=== PATIENT | male | born 1935 | race Caucasian/White ===

== ENCOUNTER 2020-09-01 17:59 | Inpatient (IN) | payer MEDICARE, OTHER ==
[2020-09-01] MEDS ORDERED: Sodium Chloride 0.9% 1000 ML 1,000 ML IV STA (18:27)
--- NOTE | 2020-09-01 18:31 | ERPHSYRPT ---
- History of Present Illness Time Seen by Provider: 09/01/20 18:20 Patient Subjective Stated Complaint: weakness, itching extremities and back, fatigue Triage Nursing Assessment: pt to ED c/o weakness onset today after waking up this am, had breakfast, went back to bed and could not get up later d/t weakness. hx parkinsons. pt also reports diarrhea x 4 weeks and "nothing taste right before, its okay now." deies pain currently. denies COVID exposure. A&Ox4. noted bilat lower extremity swelling. Physician History: Patient is an 84-year-old white male who presents with extreme weakness the onset was today after awakening. He managed to get out of bed but returned to bed and could not get out the second time. He has had diarrhea on and off for 4 weeks he reports an abnormal taste he denies any pain whatsoever. Patient has longstanding parkinsonism Timing/Duration: week(s) (4) Severity: moderate Modifying Factors: Improves With: nothing Associated Symptoms: loss of appetite Allergies/Adverse Reactions: No Known Drug Allergies Allergy (Unverified 09/01/20 18:16) Home Medications: Carbidopa/Levodopa [Carbidopa-Levo ER 25-100 Tab] 1 each PO HS 09/01/20 [History] Celecoxib 100 mg [celeBREX 100 MG] 100 mg PO BID 09/01/20 [History] Primidone 50 MG [Mysoline 50Mg] 50 mg PO QAM 09/01/20 [History] Ropinirole HCl 0.25 mg PO BID 09/01/20 [History] Hx Tetanus, Diphtheria Vaccination/Date Given: No Hx Influenza Vaccination/Date Given: Yes Hx Pneumococcal Vaccination/Date Given: No Immunizations Up to Date: No Travel Risk - International Travel Have you traveled outside of the country in past 3 weeks: No - Coronavirus Screening Are you exhibiting any of the following symptoms?: Yes Symptoms: Vomiting/Diarrhea, Headaches/Body Aches/Fatigue Close contact with a COVID-19 positive Pt in past 14-21 Days: No - Review of Systems Constitutional: Weakness, No Fever, No Chills Eyes: No Symptoms Ears, Nose, & Throat: No Symptoms Respiratory: No Cough, No Dyspnea Cardiac: No Chest Pain, No Edema, No Syncope Abdominal/Gastrointestinal: No Abdominal Pain, No Nausea, No Vomiting, No Diarrhea, No Hematochezia, No Melena Genitourinary Symptoms: No Dysuria Musculoskeletal: No Back Pain, No Neck Pain Skin: No Rash Neurological: No Dizziness, No Focal Weakness, No Sensory Changes Psychological: No Symptoms Endocrine: No Symptoms All Other Systems: Reviewed and Negative - Past Medical History Pertinent Past Medical History: Yes Neurological History: Other Other Medical History: parkinsons, enlarged prostate - Past Surgical History Past Surgical History: Yes - Social History Smoking Status: Never smoker Exposure to second hand smoke: No Drug Use: none Patient Lives Alone: No () - Nursing Vital Signs Nursing Vital Signs: Initial Vital Signs Temperature 99 F 09/01/20 18:03 Pulse Rate 70 09/01/20 18:03 Respiratory Rate 16 09/01/20 18:03 Blood Pressure 152/68 09/01/20 18:03 O2 Sat by Pulse Oximetry 100 09/01/20 18:03 Pain Scale Pain Intensity 0 - Physical Exam General Appearance: mild distress, alert Eye Exam: PERRL/EOMI, eyes nml inspection, pale conjunctivae Ears, Nose, Throat Exam: normal ENT inspection, TMs normal, pharynx normal, moist mucous membranes Neck Exam: normal inspection, non-tender, supple, full range of motion Respiratory Exam: normal breath sounds, lungs clear, No respiratory distress Cardiovascular Exam: regular rate/rhythm, normal heart sounds, normal peripheral pulses Gastrointestinal/Abdomen Exam: soft, normal bowel sounds, No tenderness, No mass Rectal Exam: not done Back Exam: normal inspection, normal range of motion, No CVA tenderness, No vertebral tenderness Extremity Exam: normal inspection, normal range of motion, pelvis stable Neurologic Exam: alert, oriented x 3, cooperative, normal mood/affect, nml cerebellar function, nml station & gait, sensation nml, other (Patient has a p ronounced resting tremor in the right upper extremity he has bilateral cogwheel rigidity in the upper extremities but other than that there is no local or lateralizing signs.), No motor deficits Skin Exam: normal color, warm, dry, No rash Lymphatic Exam: No adenopathy SpO2: 100 - Course Nursing assessment & vital signs reviewed: Yes EKG Interpreted by Me: RATE (69), Sinus Rhythm, NORMAL AXIS, NORMAL INTERVALS, NORMAL QRS, Non-specific ST Changes - Radiology Exams Chest X-ray Interpretation: Interpreted by me, Negative (X-ray per the ED physician no acute changes only chronic changes) Ordered Tests: Active Orders 24 hr Category Date Time Status EKG-ER Only STAT Care 09/01/20 18:27 Active CHEST 1 VIEW (PORTABLE) Stat Exams 09/01/20 18:29 Taken AMYLASE Stat Lab 09/01/20 18:34 Completed BLOOD CULTURE Stat Lab 09/01/20 19:11 Received BMP DAILY Lab 09/01/20 22:30 Ordered CBC W DIFF Stat Lab 09/01/20 18:34 Completed CMP Stat Lab 09/01/20 18:34 Completed LIPASE Stat Lab 09/01/20 18:34 Completed Lactic Acid Stat Lab 09/01/20 18:55 Completed Occult Blood Stool [FECAL OCCULT BLOOD - SCREENING] Lab 09/01/20 18:57 Ordered Stat POCT GLUCOSE Stat Lab 09/01/20 19:31 Completed PROTIME WITH INR Stat Lab 09/01/20 18:34 Completed TROPONIN Q3H Lab 09/01/20 18:34 Completed TROPONIN Q3H Lab 09/01/20 21:30 Ordered TROPONIN Q3H Lab 09/02/20 00:30 Ordered TROPONIN Q3H Lab 09/02/20 03:30 Ordered TROPONIN Q3H Lab 09/02/20 06:30 Ordered UA W/RFX UR CULTURE Stat Lab 09/01/20 18:28 Ordered Medication Summary Discontinued Medications Generic Name Dose Route Start Last Admin Trade Name Freq PRN Reason Stop Dose Admin Calcium Gluconate 1,000 mg 09/01/20 18:48 09/01/20 19:34 Calcium Gluconate 10% 1000 Mg IV 09/01/20 18:49 1,000 mg STAT ONE Administration Calcium Gluconate Confirm 09/01/20 19:26 Calcium Gluconate 10% 1000 Mg Administered 09/01/20 19:27 Dose 1,000 mg IV .STK-MED ONE Dextrose 50 ml 09/01/20 18:48 09/01/20 19:35 D50w 50 Ml Abboject IV 09/01/20 18:49 50 ml STAT ONE Administration Dextrose Confirm 09/01/20 19:29 D50w 50 Ml Abboject Administered 09/01/20 19:30 Dose 50 ml IV .STK-MED ONE Sodium Chloride 1,000 mls @ 999 mls/hr 09/01/20 18:27 09/01/20 18:35 Sodium Chloride 0.9% 1000 Ml IV 09/01/20 19:27 999 mls/hr .Q1H1M STA Administration Sodium Chloride Confirm 09/01/20 18:34 Sodium Chloride 0.9% 1000 Ml Administered 09/01/20 18:35 Dose 1,000 mls @ ud .ROUTE .STK-MED ONE Insulin Human Regular 5 unit 09/01/20 18:48 09/01/20 19:27 Humulin R IV 09/01/20 18:49 5 unit STAT ONE Administration Insulin Human Regular Confirm 09/01/20 19:28 Humulin R Administered 09/01/20 19:29 Dose 5 unit .ROUTE .STK-MED ONE Sodium Bicarbonate 50 meq 09/01/20 18:48 09/01/20 19:37 Sodium Bicarbonate 50 Meq/50 Ml Abboject IV 09/01/20 18:49 50 meq STAT ONE Administration Sodium Bicarbonate Confirm 09/01/20 19:29 Sodium Bicarbonate 50 Meq/50 Ml Abboject Administered 09/01/20 19:30 Dose 50 meq IV .STK-MED ONE Sodium Polystyrene Sulfonate 30 g 09/01/20 18:51 09/01/20 19:34 Kayexylate 15 Gm/60 Ml PO 09/01/20 18:52 30 g STAT ONE Administration Sodium Polystyrene Sulfonate Confirm 09/01/20 19:28 Kayexylate 15 Gm/60 Ml Administered 09/01/20 19:29 Dose 30 g .ROUTE .STK-MED ONE Lab/Rad Data: Laboratory Result Diagrams 09/01/20 18:34 09/01/20 18:34 Laboratory Results 09/01/20 09/01/20 09/01/20 Range/Units 19:31 19:00 18:55 WBC (4.0-10.5) K/mm3 RBC (4.1-5.6) M/mm3 Hgb (12.5-18.0) gm/dl Hct (42-50) % MCV (78-100) fl MCH (26-32) pg MCHC (32-36) g/dl RDW (11.5-14.0) % Plt Count (150-450) K/mm3 MPV (7.5-11.0) fl Gran % (36.0-66.0) % Eos # (Auto) (0-0.5) Absolute Lymphs (auto) (1.0-4.6) Absolute Monos (auto) (0.0-1.3) Lymphocytes % (24.0-44.0) % Monocytes % (0.0-12.0) % Eosinophils % (0.00-5.0) % Basophils % (0.0-0.4) % Absolute Granulocytes (1.4-6.9) Basophils # (0-0.4) PT (8.83-12.87) SECONDS INR (0.8-3.0) Sodium (137-145) mmol/L Potassium (3.5-5.1) mmol/L Chloride (98-107) mmol/L Carbon Dioxide (22-30) mmol/L Anion Gap (5-15) MEQ/L BUN (9-20) mg/dL Creatinine (0.66-1.25) mg/dL Estimated GFR ML/MIN Glucose (74-106) mg/dL POC Glucometer 93 (74 to 106) mg/dL Lactic Acid 1.0 (0.4-2.0) Calcium (8.4-10.2) mg/dL Total Bilirubin (0.2-1.3) mg/dL AST (17-59) U/L ALT (0-50) U/L Alkaline Phosphatase (38-126) U/L Troponin I (0.000-0.034) ng/mL Serum Total Protein (6.3-8.2) g/dL Albumin (3.5-5.0) g/dL Amylase (30-110) U/L Lipase (23-300) U/L SARS-CoV-2 (PCR) NEGATIVE (NEGATIVE) Slides for Path Review 09/01/20 09/01/20 09/01/20 Range/Units 18:34 18:34 18:34 WBC (4.0-10.5) K/mm3 RBC (4.1-5.6) M/mm3 Hgb (12.5-18.0) gm/dl Hct (42-50) % MCV (78-100) fl MCH (26-32) pg MCHC (32-36) g/dl RDW (11.5-14.0) % Plt Count (150-450) K/mm3 MPV (7.5-11.0) fl Gran % (36.0-66.0) % Eos # (Auto) (0-0.5) Absolute Lymphs (auto) (1.0-4.6) Absolute Monos (auto) (0.0-1.3) Lymphocytes % (24.0-44.0) % Monocytes % (0.0-12.0) % Eosinophils % (0.00-5.0) % Basophils % (0.0-0.4) % Absolute Granulocytes (1.4-6.9) Basophils # (0-0.4) PT 12.0 (8.83-12.87) SECONDS INR 1.06 (0.8-3.0) Sodium 132 L (137-145) mmol/L Potassium 6.4 H* (3.5-5.1) mmol/L Chloride 110 H (98-107) mmol/L Carbon Dioxide 13 L* (22-30) mmol/L Anion Gap 16.2 H (5-15) MEQ/L BUN 81 H (9-20) mg/dL Creatinine 8.64 H (0.66-1.25) mg/dL Estimated GFR 6.3 ML/MIN Glucose 102 (74-106) mg/dL POC Glucometer (74 to 106) mg/dL Lactic Acid (0.4-2.0) Calcium 8.0 L (8.4-10.2) mg/dL Total Bilirubin 0.30 (0.2-1.3) mg/dL AST 15 L (17-59) U/L ALT 5 (0-50) U/L Alkaline Phosphatase 62 (38-126) U/L Troponin I 0.044 H* (0.000-0.034) ng/mL Serum Total Protein 6.3 (6.3-8.2) g/dL Albumin 3.6 (3.5-5.0) g/dL Amylase 98 (30-110) U/L Lipase 174 (23-300) U/L SARS-CoV-2 (PCR) (NEGATIVE) Slides for Path Review 09/01/20 Range/Units 18:34 WBC 11.8 H (4.0-10.5) K/mm3 RBC 2.08 L (4.1-5.6) M/mm3 Hgb 6.3 L* (12.5-18.0) gm/dl Hct 20.6 L (42-50) % MCV 99.0 (78-100) fl MCH 30.3 (26-32) pg MCHC 30.6 L (32-36) g/dl RDW 13.4 (11.5-14.0) % Plt Count 207 (150-450) K/mm3 MPV 10.2 (7.5-11.0) fl Gran % 88.4 H (36.0-66.0) % Eos # (Auto) 0.20 (0-0.5) Absolute Lymphs (auto) 0.46 L (1.0-4.6) Absolute Monos (auto) 0.70 (0.0-1.3) Lymphocytes % 3.9 L (24.0-44.0) % Monocytes % 5.9 (0.0-12.0) % Eosinophils % 1.7 (0.00-5.0) % Basophils % 0.1 (0.0-0.4) % Absolute Granulocytes 10.43 H (1.4-6.9) Basophils # 0.01 (0-0.4) PT (8.83-12.87) SECONDS INR (0.8-3.0) Sodium (137-145) mmol/L Potassium (3.5-5.1) mmol/L Chloride (98-107) mmol/L Carbon Dioxide (22-30) mmol/L Anion Gap (5-15) MEQ/L BUN (9-20) mg/dL Creatinine (0.66-1.25) mg/dL Estimated GFR ML/MIN Glucose (74-106) mg/dL POC Glucometer (74 to 106) mg/dL Lactic Acid (0.4-2.0) Calcium (8.4-10.2) mg/dL Total Bilirubin (0.2-1.3) mg/dL AST (17-59) U/L ALT (0-50) U/L Alkaline Phosphatase (38-126) U/L Troponin I (0.000-0.034) ng/mL Serum Total Protein (6.3-8.2) g/dL Albumin (3.5-5.0) g/dL Amylase (30-110) U/L Lipase (23-300) U/L SARS-CoV-2 (PCR) (NEGATIVE) Slides for Path Review YES - Progress Progress: unchanged Discussed with : Karin - Departure Departure Disposition: In-patient Admission Clinical Impression: Anemia, Hyperkalemia, Dehydration Condition: Stable Critical Care Time: Yes Critical Care Time(excluding separately billable procedures): Critical 30-74 mins Referrals: ABRAHAN DIXON MD [Primary Care Provider] -
[2020-09-01] MEDS ORDERED: Sodium Chloride 0.9% 1000 ML 1,000 ML ONE ×3 (18:34→21:03)
[2020-09-01 18:38] LABS: Absolute Neutrophil Ct (ANC) 10.43 (1.4-6.9); BASOPHIL % 0.1 % (0.0-0.4); Basophil (Absolute #) 0.01 (0-0.4); Eosinophil % 1.7 % (0.00-5.0); Hematocrit 20.6 % (42-50); Lymphocyte (Absolute #) 0.46 (1.0-4.6); Lymphocytes % 3.9 % (24.0-44.0); Mean Corpuscular Hemoglobin 30.3 pg (26-32); Mean Corpuscular Hgb Concent. 30.6 g/dl (32-36); Mean Platelet Volume 10.2 fl (7.5-11.0); Monocytes % 5.9 % (0.0-12.0); Neutrophil % 88.4 % (36.0-66.0); Platelet Count 207 K/mm3 (150-450); Red Blood Count 2.08 M/mm3 (4.1-5.6); Red Cell Distribution Width 13.4 % (11.5-14.0); White Blood Count 11.8 K/mm3 (4.0-10.5)
[2020-09-01 18:39] LABS: INR 1.06 (0.8-3.0)
[2020-09-01 18:43] LABS: ALBUMIN 3.6 g/dL (3.5-5.0); ANION GAP 16.2 MEQ/L (5-15); BILIRUBIN,TOTAL 0.3 mg/dL (0.2-1.3); Creatinine 1 8.64 mg/dL (0.66-1.25); EST GLOMERULAR FILTRATION RATE 6.3 ML/MIN; Hemoglobin 6.3 gm/dl (12.5-18.0); Total Protein 6.3 g/dL (6.3-8.2)
[2020-09-01 18:45] LABS: Potassium 6.4 mmol/L (3.5-5.1)
[2020-09-01] MEDS ORDERED: SODIUM BICARBONATE 50 MEQ/50 ML ABBOJECT IV ONE ×2 (18:48→19:29)
[2020-09-01] MEDS ORDERED: Calcium Gluconate 10% 1000 MG IV ONE ×2 (18:48→19:26)
[2020-09-01] MEDS ORDERED: HUMULIN R IV ONE (18:48)
[2020-09-01] MEDS ORDERED: D50W 50 ml Abboject IV ONE ×2 (18:48→19:29)
[2020-09-01] MEDS ORDERED: Kayexylate 15 GM/60 ML PO ONE (18:51)
[2020-09-01] MEDS ORDERED: Kayexylate 15 GM/60 ML ONE (19:28)
[2020-09-01] MEDS ORDERED: HUMULIN R ONE (19:28)
[2020-09-01 19:47] LABS: Slide Review 1 YES
[2020-09-01 20:30] LABS: ABO TYPING O; Antibody Screen NEGATIVE (NEGATIVE); RH TYPING POSITIVE
[2020-09-01] MEDS ORDERED: Sodium Chloride 0.9% 1000 ML 1,000 ML IV SCH (20:30)
[2020-09-01 20:34] LABS: CROSS MATCH (PRBC) COMPATIBLE (COMPATIBLE)
[2020-09-01] MEDS ORDERED: Sodium Chloride 0.9% W/ 20 mEq KCl/LITER 1,000 ML IV SCH (22:31)
[2020-09-01 22:44] LABS: ANION GAP 16.4 MEQ/L (5-15); Calcium 8.1 mg/dL (8.4-10.2); Creatinine 1 8.51 mg/dL (0.66-1.25); EST GLOMERULAR FILTRATION RATE 6.4 ML/MIN; Potassium 5.6 mmol/L (3.5-5.1)
[2020-09-01] MEDS: Sodium Chloride 0.9% 1000 ML 1,000 ML IV SCH (23:18)
[2020-09-02 04:40] LABS: Absolute Neutrophil Ct (ANC) 8.91 (1.4-6.9); BASOPHIL % 0.2 % (0.0-0.4); Basophil (Absolute #) 0.02 (0-0.4); Eosinophil % 3.6 % (0.00-5.0); Eosinophil (Absolute #) 0.37 (0-0.5); Hematocrit 24.7 % (42-50); Lymphocyte (Absolute #) 0.42 (1.0-4.6); Lymphocytes % 4.1 % (24.0-44.0); Mean Cell Volume 96.5 fl (78-100); Mean Corpuscular Hemoglobin 30.1 pg (26-32); Mean Corpuscular Hgb Concent. 31.2 g/dl (32-36); Mean Platelet Volume 10.2 fl (7.5-11.0); Monocyte (Absolute #) 0.44 (0.0-1.3); Monocytes % 4.3 % (0.0-12.0); Neutrophil % 87.8 % (36.0-66.0); Platelet Count 180 K/mm3 (150-450); Red Blood Count 2.56 M/mm3 (4.1-5.6); Red Cell Distribution Width 14.4 % (11.5-14.0); White Blood Count 10.2 K/mm3 (4.0-10.5)
[2020-09-02 04:50] LABS: Hemoglobin 7.7 gm/dl (12.5-18.0)
[2020-09-02 04:52] LABS: ALBUMIN 3.1 g/dL (3.5-5.0); ALKALINE PHOSPHATASE 45 U/L (38-126); ANION GAP 14.5 MEQ/L (5-15); BLOOD UREA NITROGEN 80 mg/dL (9-20); CHLORIDE 113 mmol/L (98-107); Creatinine 1 7.88 mg/dL (0.66-1.25); Glucose 83 mg/dL (74-106); Potassium 5.5 mmol/L (3.5-5.1); SGOT/AST 18 U/L (17-59); SODIUM 135 mmol/L (137-145); Total Protein 5.5 g/dL (6.3-8.2)
[2020-09-02 05:08] LABS: Carbon Dioxide 13 mmol/L (22-30); SGPT/ALT < 4 U/L (0-50)
[2020-09-02 06:21] LABS: Slide Review 1 YES
[2020-09-02] MEDS: Sodium Chloride 0.9% 1000 ML 1,000 ML IV SCH ×3 (06:35→20:37)
--- NOTE | 2020-09-02 08:45 | XRAY ---
Indication: Weakness. Comparison: None Portable chest demonstrates subtle inferior right upper and right infrahilar infiltrate versus atelectasis. Remaining heart and lungs unremarkable. Bony thorax intact with osteopenia and mild degenerative changes.
--- NOTE | 2020-09-02 12:02 | PCM.HP ---
History of Present Illness - Chief Complaint Chief Complaint: c/o diarrhea, low hemoglobin History of Present Illness: is a 84 year old male. presents with extreme weakness the onset was today after awakening. He managed to get out of bed but returned to bed and could not get out the second time. He has had diarrhea on and off for 4 weeks he reports an abnormal taste he denies any pain whatsoever. Patient has longstanding parkinsonism Timing/Duration: week(s) (4) Severity: moderate Modifying Factors: Improves With: nothing Associated Symptoms: loss of appetite - Review of Systems Constitutional: Lethargy, Weakness, No Fever, No Chills Eyes: No Symptoms Ears, Nose, & Throat: No Symptoms Respiratory: No Cough, No Short Of Breath Cardiac: No Chest Pain, No Edema, No Syncope Abdominal/Gastrointestinal: No Abdominal Pain, No Nausea, No Vomiting, No Diarrhea Genitourinary Symptoms: No Dysuria Musculoskeletal: No Back Pain, No Neck Pain Skin: No Rash Neurological: No Dizziness, No Focal Weakness, No Sensory Changes Psychological: No Symptoms Endocrine: No Symptoms Hematologic/Lymphatic: No Symptoms Immunological/Allergic: No Symptoms Medications & Allergies Home Medications: Home Medication List Carbidopa/Levodopa [Carbidopa-Levo ER 25-100 Tab] 1 each PO BID 09/01/20 [History Confirmed 09/01/20] Celecoxib 100 mg [celeBREX 100 MG] 100 mg PO DAILY 09/01/20 [History Confirmed 09/01/20] Primidone 50 MG [Mysoline 50Mg] 50 mg PO BID 09/01/20 [History Confirmed 09/01/20] Ropinirole HCl 0.25 mg PO BID 09/01/20 [History Confirmed 09/01/20] Allergies/Adverse Reactions: Allergies Allergy/AdvReac Type Severity Reaction Status Date / Time No Known Drug Allergies Allergy Unverified 09/01/20 18:16 - Past Medical History Past Medical History: Yes Neurological History: Other ENT History: No Pertinent History Cardiac History: No Pertinent History Respiratory History: No Pertinent History Endocrine Medical History: No Pertinent History Musculoskelatal History: No Pertinent History GI Medical History: No Pertinent History History: No Pertinent History Pyscho-Social History: No Pertinent History Male Reproductive Disorders: Prostate Problems Comment: parkinsons, enlarged prostate - Past Surgical History Past Surgical History: Yes Neuro Surgical History: No Pertinent History Cardiac History: No Pertinent History Respiratory Surgery: No Pertinent History GI Surgical History: No Pertinent History Genitourinary Surgical Hx: No Pertinent History Musculskeletal Surgical Hx: No Pertinent History Male Surgical History: No Pertinent History - Social History Smoking Status: Never smoker Exposure to second hand smoke: No Alcohol: None Drug Use: none - Physical Exam Vital Signs: Vital Signs - 24 hr Temp Pulse Resp BP Pulse Ox 09/02/20 11:31 97.7 F 67 14 166/76 99 09/02/20 11:24 97.7 F 67 14 166/76 99 09/02/20 08:00 68 18 09/02/20 07:12 97.8 F 68 14 172/75 99 09/02/20 04:00 71 09/02/20 02:58 98.7 F 70 14 170/71 99 09/02/20 00:01 71 09/02/20 00:00 98.4 F 71 15 160/79 100 09/01/20 22:32 98.9 F 71 14 161/64 100 09/01/20 21:31 98.5 F 79 18 131/67 100 09/01/20 20:16 79 16 136/62 99 09/01/20 20:13 100 09/01/20 19:00 70 18 136/77 100 09/01/20 18:03 99 F 70 16 152/68 100 General Appearance: no apparent distress, alert Neurologic Exam: alert, oriented x 3, cooperative, normal mood/affect, nml cerebellar function, nml station & gait, sensation nml, No motor deficits Eye Exam: PERRL/EOMI, eyes nml inspection Ears, Nose, Throat Exam: normal ENT inspection, TMs normal, pharynx normal, moist mucous membranes Neck Exam: normal inspection, non-tender, supple, full range of motion Respiratory Exam: normal breath sounds, lungs clear, No respiratory distress Cardiovascular Exam: regular rate/rhythm, normal heart sounds, normal peripheral pulses Gastrointestinal/Abdomen Exam: soft, normal bowel sounds, No tenderness, No mass Back Exam: normal inspection, normal range of motion, No CVA tenderness, No vertebral tenderness Extremity Exam: normal inspection, normal range of motion, pelvis stable Skin Exam: normal color, warm, dry, No rash Lymphatic Exam: No adenopathy Results - Labs Lab/Micro Results: Lab Results-Last 24 Hours 09/01/20 09/01/20 09/01/20 Range/Units 18:34 18:34 18:34 WBC 11.8 H (4.0-10.5) K/mm3 RBC 2.08 L (4.1-5.6) M/mm3 Hgb 6.3 L* (12.5-18.0) gm/dl Hct 20.6 L (42-50) % MCV 99.0 (78-100) fl MCH 30.3 (26-32) pg MCHC 30.6 L (32-36) g/dl RDW 13.4 (11.5-14.0) % Plt Count 207 (150-450) K/mm3 MPV 10.2 (7.5-11.0) fl Gran % 88.4 H (36.0-66.0) % Eos # (Auto) 0.20 (0-0.5) Absolute Lymphs (auto) 0.46 L (1.0-4.6) Absolute Monos (auto) 0.70 (0.0-1.3) Lymphocytes % 3.9 L (24.0-44.0) % Monocytes % 5.9 (0.0-12.0) % Eosinophils % 1.7 (0.00-5.0) % Basophils % 0.1 (0.0-0.4) % Absolute Granulocytes 10.43 H (1.4-6.9) Basophils # 0.01 (0-0.4) PT 12.0 (8.83-12.87) SECONDS INR 1.06 (0.8-3.0) Sodium 132 L (137-145) mmol/L Potassium 6.4 H* (3.5-5.1) mmol/L Chloride 110 H (98-107) mmol/L Carbon Dioxide 13 L* (22-30) mmol/L Anion Gap 16.2 H (5-15) MEQ/L BUN 81 H (9-20) mg/dL Creatinine 8.64 H (0.66-1.25) mg/dL Estimated GFR 6.3 ML/MIN Glucose 102 (74-106) mg/dL POC Glucometer (74 to 106) mg/dL Lactic Acid (0.4-2.0) Calcium 8.0 L (8.4-10.2) mg/dL Total Bilirubin 0.30 (0.2-1.3) mg/dL AST 15 L (17-59) U/L ALT 5 (0-50) U/L Alkaline Phosphatase 62 (38-126) U/L Troponin I (0.000-0.034) ng/mL Serum Total Protein 6.3 (6.3-8.2) g/dL Albumin 3.6 (3.5-5.0) g/dL Amylase 98 (30-110) U/L Lipase 174 (23-300) U/L SARS-CoV-2 (PCR) (NEGATIVE) Slides for Path Review YES ABO Group Rh Factor Antibody Screen (NEGATIVE) Crossmatch (COMPATIBLE) 09/01/20 09/01/20 09/01/20 Range/Units 18:34 18:55 19:00 WBC (4.0-10.5) K/mm3 RBC (4.1-5.6) M/mm3 Hgb (12.5-18.0) gm/dl Hct (42-50) % MCV (78-100) fl MCH (26-32) pg MCHC (32-36) g/dl RDW (11.5-14.0) % Plt Count (150-450) K/mm3 MPV (7.5-11.0) fl Gran % (36.0-66.0) % Eos # (Auto) (0-0.5) Absolute Lymphs (auto) (1.0-4.6) Absolute Monos (auto) (0.0-1.3) Lymphocytes % (24.0-44.0) % Monocytes % (0.0-12.0) % Eosinophils % (0.00-5.0) % Basophils % (0.0-0.4) % Absolute Granulocytes (1.4-6.9) Basophils # (0-0.4) PT (8.83-12.87) SECONDS INR (0.8-3.0) Sodium (137-145) mmol/L Potassium (3.5-5.1) mmol/L Chloride (98-107) mmol/L Carbon Dioxide (22-30) mmol/L Anion Gap (5-15) MEQ/L BUN (9-20) mg/dL Creatinine (0.66-1.25) mg/dL Estimated GFR ML/MIN Glucose (74-106) mg/dL POC Glucometer (74 to 106) mg/dL Lactic Acid 1.0 (0.4-2.0) Calcium (8.4-10.2) mg/dL Total Bilirubin (0.2-1.3) mg/dL AST (17-59) U/L ALT (0-50) U/L Alkaline Phosphatase (38-126) U/L Troponin I 0.044 H* (0.000-0.034) ng/mL Serum Total Protein (6.3-8.2) g/dL Albumin (3.5-5.0) g/dL Amylase (30-110) U/L Lipase (23-300) U/L SARS-CoV-2 (PCR) NEGATIVE (NEGATIVE) Slides for Path Review ABO Group Rh Factor Antibody Screen (NEGATIVE) Crossmatch (COMPATIBLE) 09/01/20 09/01/20 09/01/20 Range/Units 19:00 19:11 19:31 WBC (4.0-10.5) K/mm3 RBC (4.1-5.6) M/mm3 Hgb (12.5-18.0) gm/dl Hct (42-50) % MCV (78-100) fl MCH (26-32) pg MCHC (32-36) g/dl RDW (11.5-14.0) % Plt Count (150-450) K/mm3 MPV (7.5-11.0) fl Gran % (36.0-66.0) % Eos # (Auto) (0-0.5) Absolute Lymphs (auto) (1.0-4.6) Absolute Monos (auto) (0.0-1.3) Lymphocytes % (24.0-44.0) % Monocytes % (0.0-12.0) % Eosinophils % (0.00-5.0) % Basophils % (0.0-0.4) % Absolute Granulocytes (1.4-6.9) Basophils # (0-0.4) PT (8.83-12.87) SECONDS INR (0.8-3.0) Sodium (137-145) mmol/L Potassium (3.5-5.1) mmol/L Chloride (98-107) mmol/L Carbon Dioxide (22-30) mmol/L Anion Gap (5-15) MEQ/L BUN (9-20) mg/dL Creatinine (0.66-1.25) mg/dL Estimated GFR ML/MIN Glucose (74-106) mg/dL POC Glucometer 93 (74 to 106) mg/dL Lactic Acid (0.4-2.0) Calcium (8.4-10.2) mg/dL Total Bilirubin (0.2-1.3) mg/dL AST (17-59) U/L ALT (0-50) U/L Alkaline Phosphatase (38-126) U/L Troponin I (0.000-0.034) ng/mL Serum Total Protein (6.3-8.2) g/dL Albumin (3.5-5.0) g/dL Amylase (30-110) U/L Lipase (23-300) U/L SARS-CoV-2 (PCR) (NEGATIVE) Slides for Path Review ABO Group O Rh Factor POSITIVE Antibody Screen NEGATIVE (NEGATIVE) Crossmatch COMPATIBLE COMPATIBLE (COMPATIBLE) 09/01/20 09/01/20 09/02/20 Range/Units 22:30 22:30 01:47 WBC (4.0-10.5) K/mm3 RBC (4.1-5.6) M/mm3 Hgb (12.5-18.0) gm/dl Hct (42-50) % MCV (78-100) fl MCH (26-32) pg MCHC (32-36) g/dl RDW (11.5-14.0) % Plt Count (150-450) K/mm3 MPV (7.5-11.0) fl Gran % (36.0-66.0) % Eos # (Auto) (0-0.5) Absolute Lymphs (auto) (1.0-4.6) Absolute Monos (auto) (0.0-1.3) Lymphocytes % (24.0-44.0) % Monocytes % (0.0-12.0) % Eosinophils % (0.00-5.0) % Basophils % (0.0-0.4) % Absolute Granulocytes (1.4-6.9) Basophils # (0-0.4) PT (8.83-12.87) SECONDS INR (0.8-3.0) Sodium 136 L (137-145) mmol/L Potassium 5.6 H (3.5-5.1) mmol/L Chloride 111 H (98-107) mmol/L Carbon Dioxide 14 L* (22-30) mmol/L Anion Gap 16.4 H (5-15) MEQ/L BUN 79 H (9-20) mg/dL Creatinine 8.51 H (0.66-1.25) mg/dL Estimated GFR 6.4 ML/MIN Glucose 77 (74-106) mg/dL POC Glucometer (74 to 106) mg/dL Lactic Acid (0.4-2.0) Calcium 8.1 L (8.4-10.2) mg/dL Total Bilirubin (0.2-1.3) mg/dL AST (17-59) U/L ALT (0-50) U/L Alkaline Phosphatase (38-126) U/L Troponin I 0.046 H* 0.046 H* (0.000-0.034) ng/mL Serum Total Protein (6.3-8.2) g/dL Albumin (3.5-5.0) g/dL Amylase (30-110) U/L Lipase (23-300) U/L SARS-CoV-2 (PCR) (NEGATIVE) Slides for Path Review ABO Group Rh Factor Antibody Screen (NEGATIVE) Crossmatch (COMPATIBLE) 09/02/20 09/02/20 09/02/20 Range/Units 04:30 04:37 04:37 WBC 10.2 (4.0-10.5) K/mm3 RBC 2.56 L (4.1-5.6) M/mm3 Hgb 7.7 L D (12.5-18.0) gm/dl Hct 24.7 L (42-50) % MCV 96.5 (78-100) fl MCH 30.1 (26-32) pg MCHC 31.2 L (32-36) g/dl RDW 14.4 H (11.5-14.0) % Plt Count 180 (150-450) K/mm3 MPV 10.2 (7.5-11.0) fl Gran % 87.8 H (36.0-66.0) % Eos # (Auto) 0.37 (0-0.5) Absolute Lymphs (auto) 0.42 L (1.0-4.6) Absolute Monos (auto) 0.44 (0.0-1.3) Lymphocytes % 4.1 L (24.0-44.0) % Monocytes % 4.3 (0.0-12.0) % Eosinophils % 3.6 (0.00-5.0) % Basophils % 0.2 (0.0-0.4) % Absolute Granulocytes 8.91 H (1.4-6.9) Basophils # 0.02 (0-0.4) PT (8.83-12.87) SECONDS INR (0.8-3.0) Sodium (137-145) mmol/L Potassium (3.5-5.1) mmol/L Chloride (98-107) mmol/L Carbon Dioxide (22-30) mmol/L Anion Gap (5-15) MEQ/L BUN (9-20) mg/dL Creatinine (0.66-1.25) mg/dL Estimated GFR ML/MIN Glucose (74-106) mg/dL POC Glucometer (74 to 106) mg/dL Lactic Acid 0.8 (0.4-2.0) Calcium (8.4-10.2) mg/dL Total Bilirubin (0.2-1.3) mg/dL AST (17-59) U/L ALT (0-50) U/L Alkaline Phosphatase (38-126) U/L Troponin I 0.045 H* (0.000-0.034) ng/mL Serum Total Protein (6.3-8.2) g/dL Albumin (3.5-5.0) g/dL Amylase (30-110) U/L Lipase (23-300) U/L SARS-CoV-2 (PCR) (NEGATIVE) Slides for Path Review YES ABO Group Rh Factor Antibody Screen (NEGATIVE) Crossmatch (COMPATIBLE) 09/02/20 09/02/20 Range/Units 04:37 07:15 WBC (4.0-10.5) K/mm3 RBC (4.1-5.6) M/mm3 Hgb (12.5-18.0) gm/dl Hct (42-50) % MCV (78-100) fl MCH (26-32) pg MCHC (32-36) g/dl RDW (11.5-14.0) % Plt Count (150-450) K/mm3 MPV (7.5-11.0) fl Gran % (36.0-66.0) % Eos # (Auto) (0-0.5) Absolute Lymphs (auto) (1.0-4.6) Absolute Monos (auto) (0.0-1.3) Lymphocytes % (24.0-44.0) % Monocytes % (0.0-12.0) % Eosinophils % (0.00-5.0) % Basophils % (0.0-0.4) % Absolute Granulocytes (1.4-6.9) Basophils # (0-0.4) PT (8.83-12.87) SECONDS INR (0.8-3.0) Sodium 135 L (137-145) mmol/L Potassium 5.5 H (3.5-5.1) mmol/L Chloride 113 H (98-107) mmol/L Carbon Dioxide 13 L* (22-30) mmol/L Anion Gap 14.5 (5-15) MEQ/L BUN 80 H (9-20) mg/dL Creatinine 7.88 H (0.66-1.25) mg/dL Estimated GFR 7.0 ML/MIN Glucose 83 (74-106) mg/dL POC Glucometer (74 to 106) mg/dL Lactic Acid (0.4-2.0) Calcium 8.0 L (8.4-10.2) mg/dL Total Bilirubin 0.80 (0.2-1.3) mg/dL AST 18 (17-59) U/L ALT < 4 (0-50) U/L Alkaline Phosphatase 45 (38-126) U/L Troponin I 0.045 H* (0.000-0.034) ng/mL Serum Total Protein 5.5 L (6.3-8.2) g/dL Albumin 3.1 L (3.5-5.0) g/dL Amylase (30-110) U/L Lipase (23-300) U/L SARS-CoV-2 (PCR) (NEGATIVE) Slides for Path Review ABO Group Rh Factor Antibody Screen (NEGATIVE) Crossmatch (COMPATIBLE) - Radiology Impressions Radiology Exams & Impressions: Radiology Procedures Category Date Time Status ABDOMEN AND PELVIS W/0 CONTRAS [CT] Routine Exams 09/02/20 09:15 Ordered CHEST 1 VIEW (PORTABLE) Stat Exams 09/01/20 18:29 Completed CHEST WITHOUT CONTRAST [CT] Routine Exams 09/02/20 09:15 Ordered Assessment/Plan (1) Iron deficiency anemia due to chronic blood loss Current Visit: Yes Status: Acute Assessment & Plan: Chief Complaint Diagnosis ANEMIA, HYPERKALEMIA, DEHYDRATION Allergies Allergy/AdvReac Type Severity Reaction Status Date / Time No Known Drug Allergies Allergy Unverified 09/01/20 18:16 Vital Signs (Last 24 hours) Temp Pulse Resp BP Pulse Ox 09/02/20 11:31 97.7 F 67 14 166/76 99 09/02/20 11:24 97.7 F 67 14 166/76 99 09/02/20 08:00 68 18 09/02/20 07:12 97.8 F 68 14 172/75 99 09/02/20 04:00 71 09/02/20 02:58 98.7 F 70 14 170/71 99 09/02/20 00:01 71 09/02/20 00:00 98.4 F 71 15 160/79 100 09/01/20 22:32 98.9 F 71 14 161/64 100 09/01/20 21:31 98.5 F 79 18 131/67 100 09/01/20 20:16 79 16 136/62 99 09/01/20 20:13 100 09/01/20 19:00 70 18 136/77 100 09/01/20 18:03 99 F 70 16 152/68 100 Home Medications Medication Instructions Recorded Confirmed Last Taken Type Carbidopa/Levodopa [Carbidopa-Levo 1 each PO BID 09/01/20 09/01/20 09/01/20 History ER 25-100 Tab] Celecoxib 100 mg [celeBREX 100 100 mg PO DAILY 09/01/20 09/01/20 09/01/20 History MG] Primidone 50 MG [Mysoline 50Mg] 50 mg PO BID 09/01/20 09/01/20 09/01/20 History Ropinirole HCl 0.25 mg PO BID 09/01/20 09/01/20 09/01/20 History Current Medications Generic Name Dose Route Start Last Admin Trade Name Freq PRN Reason Stop Dose Admin Sodium Chloride 1,000 mls @ 150 mls/hr 09/01/20 23:30 09/02/20 06:35 Sodium Chloride 0.9% 1000 Ml IV 10/01/20 23:29 150 mls/hr .Q6H40M HSALINI Administration Discontinued Medications Generic Name Dose Route Start Last Admin Trade Name Dane PRN Reason Stop Dose Admin Calcium Gluconate 1,000 mg 09/01/20 18:48 09/01/20 19:34 Calcium Gluconate 10% 1000 Mg IV 09/01/20 18:49 1,000 mg STAT ONE Administration Calcium Gluconate Confirm 09/01/20 19:26 Calcium Gluconate 10% 1000 Mg Administered 09/01/20 19:27 Dose 1,000 mg IV .STK-MED ONE Dextrose 50 ml 09/01/20 18:48 09/01/20 19:35 D50w 50 Ml Abboject IV 09/01/20 18:49 50 ml STAT ONE Administration Dextrose Confirm 09/01/20 19:29 D50w 50 Ml Abboject Administered 09/01/20 19:30 Dose 50 ml IV .STK-MED ONE Sodium Chloride 1,000 mls @ 999 mls/hr 09/01/20 18:27 09/01/20 18:35 Sodium Chloride 0.9% 1000 Ml IV 09/01/20 19:27 999 mls/hr .Q1H1M STA Administration Sodium Chloride Confirm 09/01/20 18:34 Sodium Chloride 0.9% 1000 Ml Administered 09/01/20 18:35 Dose 1,000 mls @ ud .ROUTE .STK-MED ONE Sodium Chloride Confirm 09/01/20 20:20 Sodium Chloride 0.9% 1000 Ml Administered 09/01/20 20:21 Dose 1,000 mls @ ud .ROUTE .STK-MED ONE Sodium Chloride 1,000 mls @ 150 mls/hr 09/01/20 20:30 09/01/20 20:28 Sodium Chloride 0.9% 1000 Ml IV 10/01/20 20:29 150 mls/hr .Q6H40M SHALINI Administration Sodium Chloride Confirm 09/01/20 21:03 Sodium Chloride 0.9% 1000 Ml Administered 09/01/20 21:04 Dose 1,000 mls @ ud .ROUTE .STK-MED ONE Potassium Chloride/Sodium Chloride 1,000 mls @ 150 mls/hr 09/01/20 22:31 09/01/20 23:49 Sodium Chloride 0.9% W/ 20 Meq Kcl/Liter IV 10/01/20 22:30 Not Given .Q6H40M [facility] Insulin Human Regular 5 unit 09/01/20 18:48 09/01/20 19:27 Humulin R IV 09/01/20 18:49 5 unit STAT ONE Administration Insulin Human Regular Confirm 09/01/20 19:28 Humulin R Administered 09/01/20 19:29 Dose 5 unit .ROUTE .STK-MED ONE Sodium Bicarbonate 50 meq 09/01/20 18:48 09/01/20 19:37 Sodium Bicarbonate 50 Meq/50 Ml Abboject IV 09/01/20 18:49 50 meq STAT ONE Administration Sodium Bicarbonate Confirm 09/01/20 19:29 Sodium Bicarbonate 50 Meq/50 Ml Abboject Administered 09/01/20 19:30 Dose 50 meq IV .STK-MED ONE Sodium Polystyrene Sulfonate 30 g 09/01/20 18:51 09/01/20 19:34 Kayexylate 15 Gm/60 Ml PO 09/01/20 18:52 30 g STAT ONE Administration Sodium Polystyrene Sulfonate Confirm 09/01/20 19:28 Kayexylate 15 Gm/60 Ml Administered 09/01/20 19:29 Dose 30 g .ROUTE .STK-MED ONE Intake & Output (Last 24 hours) 08/31/20 09/01/20 09/02/20 09/03/20 11:59 11:59 11:59 11:59 Intake Total 1649 Balance 1649 Weight 75.4 kg Microbiology Results (Last 24 hours) 09/01/20 19:11 Blood Blood Culture Gram Stain - Pending 09/01/20 19:11 Blood Blood Culture - Pending 09/01/20 18:34 Blood Blood Culture Gram Stain - Pending 09/01/20 18:34 Blood Blood Culture - Pending Laboratory Results (Last 24 hours) 09/02/20 09/02/20 09/02/20 07:15 04:37 04:37 WBC 10.2 RBC 2.56 L Hgb 7.7 L D Hct 24.7 L MCV 96.5 MCH 30.1 MCHC 31.2 L RDW 14.4 H Plt Count 180 MPV 10.2 Gran % 87.8 H Eos # (Auto) 0.37 Absolute Lymphs (auto) 0.42 L Absolute Monos (auto) 0.44 Lymphocytes % 4.1 L Monocytes % 4.3 Eosinophils % 3.6 Basophils % 0.2 Absolute Granulocytes 8.91 H Basophils # 0.02 PT INR Sodium 135 L Potassium 5.5 H Chloride 113 H Carbon Dioxide 13 L* Anion Gap 14.5 BUN 80 H Creatinine 7.88 H Estimated GFR 7.0 Glucose 83 POC Glucometer Lactic Acid Calcium 8.0 L Total Bilirubin 0.80 AST 18 ALT < 4 Alkaline Phosphatase 45 Troponin I 0.045 H* Serum Total Protein 5.5 L Albumin 3.1 L Amylase Lipase SARS-CoV-2 (PCR) Slides for Path Review YES ABO Group Rh Factor Antibody Screen Crossmatch 09/02/20 09/02/20 09/02/20 04:37 04:30 01:47 WBC RBC Hgb Hct MCV MCH MCHC RDW Plt Count MPV Gran % Eos # (Auto) Absolute Lymphs (auto) Absolute Monos (auto) Lymphocytes % Monocytes % Eosinophils % Basophils % Absolute Granulocytes Basophils # PT INR Sodium Potassium Chloride Carbon Dioxide Anion Gap BUN Creatinine Estimated GFR Glucose POC Glucometer Lactic Acid 0.8 Calcium Total Bilirubin AST ALT Alkaline Phosphatase Troponin I 0.045 H* 0.046 H* Serum Total Protein Albumin Amylase Lipase SARS-CoV-2 (PCR) Slides for Path Review ABO Group Rh Factor Antibody Screen Crossmatch 09/01/20 09/01/20 09/01/20 22:30 22:30 19:31 WBC RBC Hgb Hct MCV MCH MCHC RDW Plt Count MPV Gran % Eos # (Auto) Absolute Lymphs (auto) Absolute Monos (auto) Lymphocytes % Monocytes % Eosinophils % Basophils % Absolute Granulocytes Basophils # PT INR Sodium 136 L Potassium 5.6 H Chloride 111 H Carbon Dioxide 14 L* Anion Gap 16.4 H BUN 79 H Creatinine 8.51 H Estimated GFR 6.4 Glucose 77 POC Glucometer 93 Lactic Acid Calcium 8.1 L Total Bilirubin AST ALT Alkaline Phosphatase Troponin I 0.046 H* Serum Total Protein Albumin Amylase Lipase SARS-CoV-2 (PCR) Slides for Path Review ABO Group Rh Factor Antibody Screen Crossmatch 09/01/20 09/01/20 09/01/20 19:11 19:00 19:00 WBC RBC Hgb Hct MCV MCH MCHC RDW Plt Count MPV Gran % Eos # (Auto) Absolute Lymphs (auto) Absolute Monos (auto) Lymphocytes % Monocytes % Eosinophils % Basophils % Absolute Granulocytes Basophils # PT INR Sodium Potassium Chloride Carbon Dioxide Anion Gap BUN Creatinine Estimated GFR Glucose POC Glucometer Lactic Acid Calcium Total Bilirubin AST ALT Alkaline Phosphatase Troponin I Serum Total Protein Albumin Amylase Lipase SARS-CoV-2 (PCR) NEGATIVE Slides for Path Review ABO Group O Rh Factor POSITIVE Antibody Screen NEGATIVE Crossmatch COMPATIBLE COMPATIBLE 09/01/20 09/01/20 09/01/20 18:55 18:34 18:34 WBC RBC Hgb Hct MCV MCH MCHC RDW Plt Count MPV Gran % Eos # (Auto) Absolute Lymphs (auto) Absolute Monos (auto) Lymphocytes % Monocytes % Eosinophils % Basophils % Absolute Granulocytes Basophils # PT 12.0 INR 1.06 Sodium Potassium Chloride Carbon Dioxide Anion Gap BUN Creatinine Estimated GFR Glucose POC Glucometer Lactic Acid 1.0 Calcium Total Bilirubin AST ALT Alkaline Phosphatase Troponin I 0.044 H* Serum Total Protein Albumin Amylase Lipase SARS-CoV-2 (PCR) Slides for Path Review ABO Group Rh Factor Antibody Screen Crossmatch 09/01/20 09/01/20 18:34 18:34 WBC 11.8 H RBC 2.08 L Hgb 6.3 L* Hct 20.6 L MCV 99.0 MCH 30.3 MCHC 30.6 L RDW 13.4 Plt Count 207 MPV 10.2 Gran % 88.4 H Eos # (Auto) 0.20 Absolute Lymphs (auto) 0.46 L Absolute Monos (auto) 0.70 Lymphocytes % 3.9 L Monocytes % 5.9 Eosinophils % 1.7 Basophils % 0.1 Absolute Granulocytes 10.43 H Basophils # 0.01 PT INR Sodium 132 L Potassium 6.4 H* Chloride 110 H Carbon Dioxide 13 L* Anion Gap 16.2 H BUN 81 H Creatinine 8.64 H Estimated GFR 6.3 Glucose 102 POC Glucometer Lactic Acid Calcium 8.0 L Total Bilirubin 0.30 AST 15 L ALT 5 Alkaline Phosphatase 62 Troponin I Serum Total Protein 6.3 Albumin 3.6 Amylase 98 Lipase 174 SARS-CoV-2 (PCR) Slides for Path Review YES ABO Group Rh Factor Antibody Screen Crossmatch Orders (Last 24 hours) Category Date Time Status Bedrest ROUTINE Activity 09/01/20 22:31 Active Admit as Inpatient DAILY Care 09/01/20 22:31 Active Code Status Order ROUTINE Care 09/01/20 22:31 Active EKG-ER Only STAT Care 09/01/20 18:27 Completed IV Care Q6H Care 09/01/20 22:31 Active Neuro Checks Q4H Care 09/01/20 22:31 Active Jose Bland ROUTINE Care 09/01/20 22:31 Active Telemetry q6h Care 09/01/20 22:31 Completed Consult Surgery ROUTINE Cons 09/02/20 06:55 Active Financial Controller/Discharge Plan ROUTINE Cons 09/01/20 22:52 Active NPO Diet 09/02/20 06:56 Active ABDOMEN AND PELVIS W/0 CONTRAS [CT] Routine Exams 09/02/20 09:15 Ordered CHEST 1 VIEW (PORTABLE) Stat Exams 09/01/20 18:29 Completed CHEST WITHOUT CONTRAST [CT] Routine Exams 09/02/20 09:15 Ordered AMYLASE Stat Lab 09/01/20 18:34 Completed BLOOD COMPONENT REQUEST Stat Lab 09/01/20 19:11 Completed BLOOD CULTURE Stat Lab 09/01/20 19:11 Received BMP DAILY Lab 09/01/20 22:30 Completed CBC W DIFF AM.LAB Lab 09/02/20 04:37 Completed CBC W DIFF AM.LAB Lab 09/03/20 04:00 Ordered CBC W DIFF Stat Lab 09/01/20 18:34 Completed CMP AM.LAB Lab 09/02/20 04:37 Completed CMP AM.LAB Lab 09/03/20 04:00 Ordered CMP Stat Lab 09/01/20 18:34 Completed LIPASE Stat Lab 09/01/20 18:34 Completed Lactic Acid AM.LAB Lab 09/02/20 04:30 Completed Lactic Acid Stat Lab 09/01/20 18:55 Completed Occult Blood Stool [FECAL OCCULT BLOOD - SCREENING] Lab 09/01/20 18:57 Ordered Stat POCT GLUCOSE Stat Lab 09/01/20 19:31 Completed PROTIME WITH INR Stat Lab 09/01/20 18:34 Completed TROPONIN Q3H Lab 09/01/20 18:34 Completed TROPONIN Q3H Lab 09/01/20 22:30 Completed TROPONIN Q3H Lab 09/02/20 01:47 Completed TROPONIN Q3H Lab 09/02/20 04:37 Completed TROPONIN Q3H Lab 09/02/20 07:15 Completed TYPE AND SCREEN Stat Lab 09/01/20 19:11 Completed UA W/RFX UR CULTURE Stat Lab 09/01/20 18:28 Ordered Calcium Gluconate 1000 mg [Calcium Gluconate 10% 1000 Med 09/01/20 19:26 Disco ntinued MG] 1,000 mg IV .STK-[facility] ONE Calcium Gluconate 1000 mg [Calcium Gluconate 10% 1000 Med 09/01/20 18:48 Discontinued MG] 1,000 mg IV STAT ONE Dextrose 50%-Water Syringe [D50W 50 ml Abboject] Med 09/01/20 19:29 Discontinued 50 ml IV .STK-MED ONE Dextrose 50%-Water Syringe [D50W 50 ml Abboject] Med 09/01/20 18:48 Discontinued 50 ml IV STAT ONE Insulin Regular, Human [Humulin R] Med 09/01/20 19:28 Discontinued 5 unit .ROUTE .STK-[facility] ONE Insulin Regular, Human [Humulin R] Med 09/01/20 18:48 Discontinued 5 unit IV STAT ONE NaCl 0.9% 1000 ml + KCl 20 Meq [Sodium Chloride 0.9% W/ Med 09/01/20 22:31 Discontinued 20 mEq KCl/LITER] 1,000 ml IV 150 mls/hr NaCl 0.9% 1000 ml [Sodium Chloride 0.9% 1000 ML] ,000 Med 09/01/20 18:34 Discontinued ml .ROUTE UD NaCl 0.9% 1000 ml [Sodium Chloride 0.9% 1000 ML] 1,000 Med 09/01/20 20:20 Discontinued ml .ROUTE UD NaCl 0.9% 1000 ml [Sodium Chloride 0.9% 1000 ML] ,000 Med 09/01/20 21:03 Discontinued ml .ROUTE UD NaCl 0.9% 1000 ml [Sodium Chloride 0.9% 1000 ML] 1,000 Med 09/01/20 20:30 Discontinued ml IV 150 mls/hr NaCl 0.9% 1000 ml [Sodium Chloride 0.9% 1000 ML] 1,000 Med 09/01/20 23:30 Active ml IV 150 mls/hr NaCl 0.9% 1000 ml [Sodium Chloride 0.9% 1000 ML] , Med 09/01/20 18:27 Discontinued ml IV 999 mls/hr Sodium Bicarbonate 50 Meq Abb* [Sodium Bicarbonate 50 Med 09/01/20 19:29 Discontinued Meq/50 ml Abboject] 50 meq IV .STK-MED ONE Sodium Bicarbonate 50 Meq Abb* [Sodium Bicarbonate 50 Med 09/01/20 18:48 Discontinued Meq/50 ml Abboject] 50 meq IV STAT ONE Sodium Polystyrene 15Gm/60 ml* [Kayexylate 15 GM/60 ML* Med 09/01/20 19:28 Discontinued ] 30 g .ROUTE .STK-MED ONE Sodium Polystyrene 15Gm/60 ml* [Kayexylate 15 GM/60 ML* Med 09/01/20 18:51 Discontinued ] 30 g PO STAT ONE Patient Care Notes (Last 24 hours) 09/02/20 10:49 Nursing Note by Domenica Taveras Pt has been up to the commode times 2; BM and urine mixed. Unable to obtain specimen. Initialized on 09/02/20 10:49 - END OF NOTE 09/02/20 09:19 SBAR Note by Domenica Taveras SITUATION I am calling about SHANDA JOHNSON the patient's code status is Full Code The problem I am calling about is: Dr Mondragon here to see pt; aware of pt's increase in B/P. Continue NS @ 150, ordered CT's and labs. ASSESSMENT RECOMMENDATION Physician notified at [id number] New Orders received: Vital Signs (Last 4 hours) Temp Pulse Resp BP Pulse Ox 09/02/20 08:00 68 18 09/02/20 07:12 97.8 F 68 14 172/75 99 Diagnois, Code Status Date of Arrival on Unit 09/01/20 Admitted From Emergency Dept Diagnosis ANEMIA, HYPERKALEMIA, DEHYDRATION Resucitation Status Full Code Intake and Output 24 Hours 09/02/20 09/03/20 06:59 06:59 Intake Total 1649 Balance 1649 Weight 75.4 kg Intake: Intake, Oral Amount 120 Intake, IV Amount 1529 Other: Output, Urine/Stool Mix 350 Amount Physical Assessment Anxiety Level None,at ease,Awake,Calm,Low Mental Status Alert Patient Orientation Person,Place,Time Coma Scale Total 15 Breath Sounds [Anterior/ Clear Posterior Bilateral Throughout ] Breath Sounds [Anterior/ Clear Posterior Bilateral Throughout ] Cardiac Rhythm-[facility] Sinus Rhythm Change from Baseline: No Bowel Sounds [All Quadrants] Hypoactive Abdomen Description Soft,Round,Non-Tender Urine Appearance Not Assessed Skin Color [Bilateral] Pale Skin Color Pale Skin Temperature [Bilateral] Warm Skin Temperature Warm Pain Scale (Last 24 Hours) Pain Intensity 0 Pain Intensity 0 Pain Intensity 4 Pain Intensity 0 Pain Intensity 4 Pain Intensity 4 Pain Intensity 4 Pain Intensity 0 Pain Intensity 0 Pain Intensity 0 Pain Intensity 0 Pain Intensity 0 PAST MEDICAL HISTORY Neurological History Other ENT History No Pertinent History Endocrine Medical History No Pertinent History Respiratory History No Pertinent History Cardiac History No Pertinent History GI Medical History No Pertinent History History No Pertinent History Pyscho-Social History No Pertinent History Communicable Disease No Pertinent History Comment parkinsons, enlarged prostate Diet Order (Last 24 Hours) 09/02/20 06:56 NPO Lab Results (Last 24 Hours) 09/02/20 09/02/20 09/02/20 Range/Units 07:15 04:37 04:37 WBC 10.2 (4.0-10.5) K/mm3 RBC 2.56 L (4.1-5.6) M/mm3 Hgb 7.7 L D (12.5-18.0) gm/dl Hct 24.7 L (42-50) % MCV 96.5 (78-100) fl MCH 30.1 (26-32) pg MCHC 31.2 L (32-36) g/dl RDW 14.4 H (11.5-14.0) % Plt Count 180 (150-450) K/mm3 MPV 10.2 (7.5-11.0) fl Gran % 87.8 H (36.0-66.0) % Eos # (Auto) 0.37 (0-0.5) Absolute Lymphs (auto) 0.42 L (1.0-4.6) Absolute Monos (auto) 0.44 (0.0-1.3) Lymphocytes % 4.1 L (24.0-44.0) % Monocytes % 4.3 (0.0-12.0) % Eosinophils % 3.6 (0.00-5.0) % Basophils % 0.2 (0.0-0.4) % Absolute Granulocytes 8.91 H (1.4-6.9) Basophils # 0.02 (0-0.4) PT (8.83-12.87) SECONDS INR (0.8-3.0) Sodium 135 L (137-145) mmol/L Potassium 5.5 H (3.5-5.1) mmol/L Chloride 113 H (98-107) mmol/L Carbon Dioxide 13 L* (22-30) mmol/L Anion Gap 14.5 (5-15) MEQ/L BUN 80 H (9-20) mg/dL Creatinine 7.88 H (0.66-1.25) mg/dL Estimated GFR 7.0 ML/MIN Glucose 83 (74-106) mg/dL POC Glucometer (74 to 106) mg/dL Lactic Acid (0.4-2.0) Calcium 8.0 L (8.4-10.2) mg/dL Total Bilirubin 0.80 (0.2-1.3) mg/dL AST 18 (17-59) U/L ALT < 4 (0-50) U/L Alkaline Phosphatase 45 (38-126) U/L Troponin I 0.045 H* (0.000-0.034) ng/mL Serum Total Protein 5.5 L (6.3-8.2) g/dL Albumin 3.1 L (3.5-5.0) g/dL Amylase (30-110) U/L Lipase (23-300) U/L SARS-CoV-2 (PCR) (NEGATIVE) Slides for Path Review YES ABO Group Rh Factor Antibody Screen (NEGATIVE) Crossmatch (COMPATIBLE) 09/02/20 09/02/20 09/02/20 Range/Units 04:37 04:30 01:47 WBC (4.0-10.5) K/mm3 RBC (4.1-5.6) M/mm3 Hgb (12.5-18.0) gm/dl Hct (42-50) % MCV (78-100) fl MCH (26-32) pg MCHC (32-36) g/dl RDW (11.5-14.0) % Plt Count (150-450) K/mm3 MPV (7.5-11.0) fl Gran % (36.0-66.0) % Eos # (Auto) (0-0.5) Absolute Lymphs (auto) (1.0-4.6) Absolute Monos (auto) (0.0-1.3) Lymphocytes % (24.0-44.0) % Monocytes % (0.0-12.0) % Eosinophils % (0.00-5.0) % Basophils % (0.0-0.4) % Absolute Granulocytes (1.4-6.9) Basophils # (0-0.4) PT (8.83-12.87) SECONDS INR (0.8-3.0) Sodium (137-145) mmol/L Potassium (3.5-5.1) mmol/L Chloride (98-107) mmol/L Carbon Dioxide (22-30) mmol/L Anion Gap (5-15) MEQ/L BUN (9-20) mg/dL Creatinine (0.66-1.25) mg/dL Estimated GFR ML/MIN Glucose (74-106) mg/dL POC Glucometer (74 to 106) mg/dL Lactic Acid 0.8 (0.4-2.0) Calcium (8.4-10.2) mg/dL Total Bilirubin (0.2-1.3) mg/dL AST (17-59) U/L ALT (0-50) U/L Alkaline Phosphatase (38-126) U/L Troponin I 0.045 H* 0.046 H* (0.000-0.034) ng/mL Serum Total Protein (6.3-8.2) g/dL Albumin (3.5-5.0) g/dL Amylase (30-110) U/L Lipase (23-300) U/L SARS-CoV-2 (PCR) (NEGATIVE) Slides for Path Review ABO Group Rh Factor Antibody Screen (NEGATIVE) Crossmatch (COMPATIBLE) 09/01/20 09/01/20 09/01/20 Range/Units 22:30 22:30 19:31 WBC (4.0-10.5) K/mm3 RBC (4.1-5.6) M/mm3 Hgb (12.5-18.0) gm/dl Hct (42-50) % MCV (78-100) fl MCH (26-32) pg MCHC (32-36) g/dl RDW (11.5-14.0) % Plt Count (150-450) K/mm3 MPV (7.5-11.0) fl Gran % (36.0-66.0) % Eos # (Auto) (0-0.5) Absolute Lymphs (auto) (1.0-4.6) Absolute Monos (auto) (0.0-1.3) Lymphocytes % (24.0-44.0) % Monocytes % (0.0-12.0) % Eosinophils % (0.00-5.0) % Basophils % (0.0-0.4) % Absolute Granulocytes (1.4-6.9) Basophils # (0-0.4) PT (8.83-12.87) SECONDS INR (0.8-3.0) Sodium 136 L (137-145) mmol/L Potassium 5.6 H (3.5-5.1) mmol/L Chloride 111 H (98-107) mmol/L Carbon Dioxide 14 L* (22-30) mmol/L Anion Gap 16.4 H (5-15) MEQ/L BUN 79 H (9-20) mg/dL Creatinine 8.51 H (0.66-1.25) mg/dL Estimated GFR 6.4 ML/MIN Glucose 77 (74-106) mg/dL POC Glucometer 93 (74 to 106) mg/dL Lactic Acid (0.4-2.0) Calcium 8.1 L (8.4-10.2) mg/dL Total Bilirubin (0.2-1.3) mg/dL AST (17-59) U/L ALT (0-50) U/L Alkaline Phosphatase (38-126) U/L Troponin I 0.046 H* (0.000-0.034) ng/mL Serum Total Protein (6.3-8.2) g/dL Albumin (3.5-5.0) g/dL Amylase (30-110) U/L Lipase (23-300) U/L SARS-CoV-2 (PCR) (NEGATIVE) Slides for Path Review ABO Group Rh Factor Antibody Screen (NEGATIVE) Crossmatch (COMPATIBLE) 09/01/20 09/01/20 09/01/20 Range/Units 19:11 19:00 19:00 WBC (4.0-10.5) K/mm3 RBC (4.1-5.6) M/mm3 Hgb (12.5-18.0) gm/dl Hct (42-50) % MCV (78-100) fl MCH (26-32) pg MCHC (32-36) g/dl RDW (11.5-14.0) % Plt Count (150-450) K/mm3 MPV (7.5-11.0) fl Gran % (36.0-66.0) % Eos # (Auto) (0-0.5) Absolute Lymphs (auto) (1.0-4.6) Absolute Monos (auto) (0.0-1.3) Lymphocytes % (24.0-44.0) % Monocytes % (0.0-12.0) % Eosinophils % (0.00-5.0) % Basophils % (0.0-0.4) % Absolute Granulocytes (1.4-6.9) Basophils # (0-0.4) PT (8.83-12.87) SECONDS INR (0.8-3.0) Sodium (137-145) mmol/L Potassium (3.5-5.1) mmol/L Chloride (98-107) mmol/L Carbon Dioxide (22-30) mmol/L Anion Gap (5-15) MEQ/L BUN (9-20) mg/dL Creatinine (0.66-1.25) mg/dL Estimated GFR ML/MIN Glucose (74-106) mg/dL POC Glucometer (74 to 106) mg/dL Lactic Acid (0.4-2.0) Calcium (8.4-10.2) mg/dL Total Bilirubin (0.2-1.3) mg/dL AST (17-59) U/L ALT (0-50) U/L Alkaline Phosphatase (38-126) U/L Troponin I (0.000-0.034) ng/mL Serum Total Protein (6.3-8.2) g/dL Albumin (3.5-5.0) g/dL Amylase (30-110) U/L Lipase (23-300) U/L SARS-CoV-2 (PCR) NEGATIVE (NEGATIVE) Slides for Path Review ABO Group O Rh Factor POSITIVE Antibody Screen NEGATIVE (NEGATIVE) Crossmatch COMPATIBLE COMPATIBLE (COMPATIBLE) 09/01/20 09/01/20 09/01/20 Range/Units 18:55 18:34 18:34 WBC (4.0-10.5) K/mm3 RBC (4.1-5.6) M/mm3 Hgb (12.5-18.0) gm/dl Hct (42-50) % MCV (78-100) fl MCH (26-32) pg MCHC (32-36) g/dl RDW (11.5-14.0) % Plt Count (150-450) K/mm3 MPV (7.5-11.0) fl Gran % (36.0-66.0) % Eos # (Auto) (0-0.5) Absolute Lymphs (auto) (1.0-4.6) Absolute Monos (auto) (0.0-1.3) Lymphocytes % (24.0-44.0) % Monocytes % (0.0-12.0) % Eosinophils % (0.00-5.0) % Basophils % (0.0-0.4) % Absolute Granulocytes (1.4-6.9) Basophils # (0-0.4) PT 12.0 (8.83-12.87) SECONDS INR 1.06 (0.8-3.0) Sodium (137-145) mmol/L Potassium (3.5-5.1) mmol/L Chloride (98-107) mmol/L Carbon Dioxide (22-30) mmol/L Anion Gap (5-15) MEQ/L BUN (9-20) mg/dL Creatinine (0.66-1.25) mg/dL Estimated GFR ML/MIN Glucose (74-106) mg/dL POC Glucometer (74 to 106) mg/dL Lactic Acid 1.0 (0.4-2.0) Calcium (8.4-10.2) mg/dL Total Bilirubin (0.2-1.3) mg/dL AST (17-59) U/L ALT (0-50) U/L Alkaline Phosphatase (38-126) U/L Troponin I 0.044 H* (0.000-0.034) ng/mL Serum Total Protein (6.3-8.2) g/dL Albumin (3.5-5.0) g/dL Amylase (30-110) U/L Lipase (23-300) U/L SARS-CoV-2 (PCR) (NEGATIVE) Slides for Path Review ABO Group Rh Factor Antibody Screen (NEGATIVE) Crossmatch (COMPATIBLE) 09/01/20 09/01/20 Range/Units 18:34 18:34 WBC 11.8 H (4.0-10.5) K/mm3 RBC 2.08 L (4.1-5.6) M/mm3 Hgb 6.3 L* (12.5-18.0) gm/dl Hct 20.6 L (42-50) % MCV 99.0 (78-100) fl MCH 30.3 (26-32) pg MCHC 30.6 L (32-36) g/dl RDW 13.4 (11.5-14.0) % Plt Count 207 (150-450) K/mm3 MPV 10.2 (7.5-11.0) fl Gran % 88.4 H (36.0-66.0) % Eos # (Auto) 0.20 (0-0.5) Absolute Lymphs (auto) 0.46 L (1.0-4.6) Absolute Monos (auto) 0.70 (0.0-1.3) Lymphocytes % 3.9 L (24.0-44.0) % Monocytes % 5.9 (0.0-12.0) % Eosinophils % 1.7 (0.00-5.0) % Basophils % 0.1 (0.0-0.4) % Absolute Granulocytes 10.43 H (1.4-6.9) Basophils # 0.01 (0-0.4) PT (8.83-12.87) SECONDS INR (0.8-3.0) Sodium 132 L (137-145) mmol/L Potassium 6.4 H* (3.5-5.1) mmol/L Chloride 110 H (98-107) mmol/L Carbon Dioxide 13 L* (22-30) mmol/L Anion Gap 16.2 H (5-15) MEQ/L BUN 81 H (9-20) mg/dL Creatinine 8.64 H (0.66-1.25) mg/dL Estimated GFR 6.3 ML/MIN Glucose 102 (74-106) mg/dL POC Glucometer (74 to 106) mg/dL Lactic Acid (0.4-2.0) Calcium 8.0 L (8.4-10.2) mg/dL Total Bilirubin 0.30 (0.2-1.3) mg/dL AST 15 L (17-59) U/L ALT 5 (0-50) U/L Alkaline Phosphatase 62 (38-126) U/L Troponin I (0.000-0.034) ng/mL Serum Total Protein 6.3 (6.3-8.2) g/dL Albumin 3.6 (3.5-5.0) g/dL Amylase 98 (30-110) U/L Lipase 174 (23-300) U/L SARS-CoV-2 (PCR) (NEGATIVE) Slides for Path Review YES ABO Group Rh Factor Antibody Screen (NEGATIVE) Crossmatch (COMPATIBLE) Lactic Acid (Last 24 Hours) 09/02/20 09/01/20 04:30 18:55 Lactic Acid 0.8 1.0 Microbiology Results (Last 24 Hours) 09/01/20 19:11 Blood Culture Gram Stain - Pending Blood Blood Culture - Pending 09/01/20 18:34 Blood Culture Gram Stain - Pending Blood Blood Culture - Pending Orders (Last 24 Hours) Category Date Time Status Bedrest ROUTINE Activity 09/01/20 22:31 Active Admit as Inpatient DAILY Care 09/01/20 22:31 Active Code Status Order ROUTINE Care 09/01/20 22:31 Active IV Care Q6H Care 09/01/20 22:31 Active Neuro Checks Q4H Care 09/01/20 22:31 Active Jose Bland ROUTINE Care 09/01/20 22:31 Active Consult Surgery ROUTINE Cons 09/02/20 06:55 Active Financial Controller/Discharge Plan ROUTINE Cons 09/01/20 22:52 Active NPO Diet 09/02/20 06:56 Active ABDOMEN AND PELVIS W/0 CONTRAS [CT] Routine Exams 09/02/20 09:15 Ordered CHEST WITHOUT CONTRAST [CT] Routine Exams 09/02/20 09:15 Ordered BLOOD CULTURE Stat Lab 09/01/20 19:11 Received CBC W DIFF AM.LAB Lab 09/03/20 04:00 Ordered CMP AM.LAB Lab 09/03/20 04:00 Ordered Occult Blood Stool [FECAL OCCULT BLOOD - SCREENING] Lab 09/01/20 18:57 Ordered Stat UA W/RFX UR CULTURE Stat Lab 09/01/20 18:28 Ordered NaCl 0.9% 1000 ml [Sodium Chloride 0.9% 1000 ML] 1,000 Med 09/01/20 23:30 Active ml IV 150 mls/hr Nursing Notes (Last 12 hours) 09/02/20 08:50 (created 09/02/20 09:08) Nursing Note by Hidalgo,Holly I called surgery consult to office. Initialized on 09/02/20 09:08 - END OF NOTE 09/02/20 07:25 Nursing Note by Holly Hidalgo I called surgery consult to surgery floor and spoke to Ninoska. Initialized on 09/02/20 07:25 - END OF NOTE 09/02/20 03:01 Nursing Note by CHICHI GOTTLIEB DR. DOES NOT WANT H&H ORDER FOR 1 HOUR POST BLOOD, AM LABS ARE FINE TO CHECK H&H. Initialized on 09/02/20 03:01 - END OF NOTE Active Visit Medications Generic Name Dose Route Start Last Admin Trade Name Freq PRN Reason Stop Dose Admin Sodium Chloride 1,000 mls @ 150 mls/hr 09/01/20 23:30 09/02/20 06:35 Sodium Chloride 0.9% 1000 Ml IV 10/01/20 23:29 150 mls/hr .[id number] SHALINI Administration Home Medications Medication Instructions Recorded Confirmed Last Taken Type Carbidopa/Levodopa [Carbidopa-Levo 1 each PO BID 09/01/20 09/01/20 09/01/20 History ER 25-100 Tab] Celecoxib 100 mg [celeBREX 100 100 mg PO DAILY 09/01/20 09/01/20 09/01/20 History MG] Primidone 50 MG [Mysoline 50Mg] 50 mg PO BID 09/01/20 09/01/20 09/01/20 History Ropinirole HCl 0.25 mg PO BID 09/01/20 09/01/20 09/01/20 History Initialized on 09/02/20 09:19 - END OF NOTE 09/02/20 08:50 (created 09/02/20 09:08) Nursing Note by Holly Hidalgo I called surgery consult to office. Initialized on 09/02/20 09:08 - END OF NOTE 09/02/20 07:25 Nursing Note by Holly Hidalgo I called surgery consult to surgery floor and spoke to Ninoska. Initialized on 09/02/20 07:25 - END OF NOTE 09/02/20 03:01 Nursing Note by CHICHI GOTTLIEB DR. DOES NOT WANT H&H ORDER FOR 1 HOUR POST BLOOD, AM LABS ARE FINE TO CHECK H&H. Initialized on 09/02/20 03:01 - END OF NOTE Code(s): D50.0 - IRON DEFICIENCY ANEMIA SECONDARY TO BLOOD LOSS (CHRONIC) (2) Dehydration Current Visit: Yes Status: Acute Assessment & Plan: Last Vital Signs Temp 97.7 F 09/02/20 11:31 Pulse 67 09/02/20 11:31 Resp 14 09/02/20 11:31 BP 166/76 09/02/20 11:31 Pulse Ox 99 09/02/20 11:31 Allergies No Known Drug Allergies Allergy (Unverified 09/01/20 18:16) Active Medications Sodium Chloride (Sodium Chloride 0.9% 1000 Ml) 1,000 mls @ 150 mls/hr IV .Q6H40M SHALINI Stop: 10/01/20 23:29 Last Admin: 09/02/20 06:35 Dose: 150 mls/hr Documented by: Intake & Output 09/02/20 09/03/20 11:59 11:59 Intake Total 1649 Balance 1649 Weight 75.4 kg Orders 09/01/20 22:52 Financial Controller/Discharge Plan ROUTINE 09/02/20 06:55 Consult Surgery ROUTINE 09/02/20 06:56 NPO 09/02/20 09:15 ABDOMEN AND PELVIS W/0 CONTRAS [CT] Routine CHEST WITHOUT CONTRAST [CT] Routine 09/03/20 04:00 CBC W DIFF AM.LAB CMP AM.LAB Lab Tests 09/01/20 09/01/20 09/01/20 18:34 18:34 18:34 WBC 11.8 H RBC 2.08 L Hgb 6.3 L* Hct 20.6 L MCV 99.0 MCH 30.3 MCHC 30.6 L RDW 13.4 Plt Count 207 MPV 10.2 Gran % 88.4 H Eos # (Auto) 0.20 Absolute Lymphs (auto) 0.46 L Absolute Monos (auto) 0.70 Lymphocytes % 3.9 L Monocytes % 5.9 Eosinophils % 1.7 Basophils % 0.1 Absolute Granulocytes 10.43 H Basophils # 0.01 PT 12.0 INR 1.06 Sodium 132 L Potassium 6.4 H* Chloride 110 H Carbon Dioxide 13 L* Anion Gap 16.2 H BUN 81 H Creatinine 8.64 H Estimated GFR 6.3 Glucose 102 POC Glucometer Lactic Acid Calcium 8.0 L Total Bilirubin 0.30 AST 15 L ALT 5 Alkaline Phosphatase 62 Troponin I Serum Total Protein 6.3 Albumin 3.6 Amylase 98 Lipase 174 SARS-CoV-2 (PCR) Slides for Path Review YES ABO Group Rh Factor Antibody Screen Crossmatch 09/01/20 09/01/20 09/01/20 18:34 18:55 19:00 WBC RBC Hgb Hct MCV MCH MCHC RDW Plt Count MPV Gran % Eos # (Auto) Absolute Lymphs (auto) Absolute Monos (auto) Lymphocytes % Monocytes % Eosinophils % Basophils % Absolute Granulocytes Basophils # PT INR Sodium Potassium Chloride Carbon Dioxide Anion Gap BUN Creatinine Estimated GFR Glucose POC Glucometer Lactic Acid 1.0 Calcium Total Bilirubin AST ALT Alkaline Phosphatase Troponin I 0.044 H* Serum Total Protein Albumin Amylase Lipase SARS-CoV-2 (PCR) NEGATIVE Slides for Path Review ABO Group Rh Factor Antibody Screen Crossmatch 09/01/20 09/01/20 09/01/20 19:00 19:11 19:31 WBC RBC Hgb Hct MCV MCH MCHC RDW Plt Count MPV Gran % Eos # (Auto) Absolute Lymphs (auto) Absolute Monos (auto) Lymphocytes % Monocytes % Eosinophils % Basophils % Absolute Granulocytes Basophils # PT INR Sodium Potassium Chloride Carbon Dioxide Anion Gap BUN Creatinine Estimated GFR Glucose POC Glucometer 93 Lactic Acid Calcium Total Bilirubin AST ALT Alkaline Phosphatase Troponin I Serum Total Protein Albumin Amylase Lipase SARS-CoV-2 (PCR) Slides for Path Review ABO Group O Rh Factor POSITIVE Antibody Screen NEGATIVE Crossmatch COMPATIBLE COMPATIBLE 09/01/20 09/01/20 09/02/20 22:30 22:30 01:47 WBC RBC Hgb Hct MCV MCH MCHC RDW Plt Count MPV Gran % Eos # (Auto) Absolute Lymphs (auto) Absolute Monos (auto) Lymphocytes % Monocytes % Eosinophils % Basophils % Absolute Granulocytes Basophils # PT INR Sodium 136 L Potassium 5.6 H Chloride 111 H Carbon Dioxide 14 L* Anion Gap 16.4 H BUN 79 H Creatinine 8.51 H Estimated GFR 6.4 Glucose 77 POC Glucometer Lactic Acid Calcium 8.1 L Total Bilirubin AST ALT Alkaline Phosphatase Troponin I 0.046 H* 0.046 H* Serum Total Protein Albumin Amylase Lipase SARS-CoV-2 (PCR) Slides for Path Review ABO Group Rh Factor Antibody Screen Crossmatch 09/02/20 09/02/20 09/02/20 04:30 04:37 04:37 WBC 10.2 RBC 2.56 L Hgb 7.7 L D Hct 24.7 L MCV 96.5 MCH 30.1 MCHC 31.2 L RDW 14.4 H Plt Count 180 MPV 10.2 Gran % 87.8 H Eos # (Auto) 0.37 Absolute Lymphs (auto) 0.42 L Absolute Monos (auto) 0.44 Lymphocytes % 4.1 L Monocytes % 4.3 Eosinophils % 3.6 Basophils % 0.2 Absolute Granulocytes 8.91 H Basophils # 0.02 PT INR Sodium Potassium Chloride Carbon Dioxide Anion Gap BUN Creatinine Estimated GFR Glucose POC Glucometer Lactic Acid 0.8 Calcium Total Bilirubin AST ALT Alkaline Phosphatase Troponin I 0.045 H* Serum Total Protein Albumin Amylase Lipase SARS-CoV-2 (PCR) Slides for Path Review YES ABO Group Rh Factor Antibody Screen Crossmatch 09/02/20 09/02/20 04:37 07:15 WBC RBC Hgb Hct MCV MCH MCHC RDW Plt Count MPV Gran % Eos # (Auto) Absolute Lymphs (auto) Absolute Monos (auto) Lymphocytes % Monocytes % Eosinophils % Basophils % Absolute Granulocytes Basophils # PT INR Sodium 135 L Potassium 5.5 H Chloride 113 H Carbon Dioxide 13 L* Anion Gap 14.5 BUN 80 H Creatinine 7.88 H Estimated GFR 7.0 Glucose 83 POC Glucometer Lactic Acid Calcium 8.0 L Total Bilirubin 0.80 AST 18 ALT < 4 Alkaline Phosphatase 45 Troponin I 0.045 H* Serum Total Protein 5.5 L Albumin 3.1 L Amylase Lipase SARS-CoV-2 (PCR) Slides for Path Review ABO Group Rh Factor Antibody Screen Crossmatch Code(s): E86.0 - DEHYDRATION (3) Hyperkalemia Current Visit: Yes Status: Acute Assessment & Plan: Kayxelate therapy Code(s): E87.5 - HYPERKALEMIA
--- NOTE | 2020-09-02 12:32 | XRAY ---
Indication: Weight loss. No appetite. Multiple contiguous axial images obtained through the chest without contrast as ordered. Comparison: None Lungs demonstrates patchy groundglass airspace opacities, right greater than left. Posterior lung bases also demonstrates patchy consolidations either organizing/consolidating airspace disease versus dependent atelectasis versus a combination. Tiny bibasilar effusions. There are few tiny calcific granulomas bilaterally. Heart is not enlarged. Aorta is minimally arteriosclerotic without aneurysm. Small right hilar calcified nodes. No pathologic mediastinal lymphadenopathy. Bony thorax demonstrates osteopenia and flowing osteophytes the spine. CT abdomen/pelvis reported separately. Impression: 1. Diffuse bilateral patchy groundglass airspace disease with tiny effusions right greater than left. Also patchy bibasilar consolidations either organizing/consolidating airspace disease versus atelectasis versus a combination. 2. Incidental chronic bony findings and old granulomatous disease.
--- NOTE | 2020-09-02 12:38 | XRAY ---
Indication: Weight loss. Loss of appetite. Multiple contiguous axial images obtained through the abdomen and pelvis without contrast as ordered. Comparison: None CT chest reported separate. Noncontrasted stomach and bowel loops appear nonobstructed. There are mild fluid distended small and large bowel loops with fluid leveling, ileus versus enterocolitis. Minimal radiopacities throughout the colon either ingested medication/bismuth versus barium. Scattered sigmoid diverticulosis. No free fluid/air. Urinary bladder is massively distended concerning for outlet obstruction versus neurogenic bladder. Subsequent significant bilateral hydronephrosis and hydroureter. Left upper kidney demonstrates 4.5 cm exophytic cyst. No perinephric fluid. Enlarged prostate gland impresses on the base of the bladder. Incidental tiny splenic calcified granulomas. Remaining liver, gallbladder, pancreas, spleen, and adrenal glands are unremarkable. Mild scattered aortoiliac calcifications without AAA. Osseous structures intact with osteopenia and mild/moderate L2 level degenerative spondylosis. Small fatty right inguinal hernia. Impression: 1. Massively distended urinary bladder. Rule out outlet obstruction versus neurogenic bladder. Subsequent significant bilateral hydronephrosis and hydroureter. 2. Mild fluid distended small and large bowel loops with fluid leveling, ileus versus enterocolitis. 3. Incidental enlarged prostate gland, left renal cyst, sigmoid diverticulosis, small fatty right inguinal hernia, and chronic bony findings.
[2020-09-02] MEDS ORDERED: DIPRIVAN 200 MG/20 ML IV ONE (13:42)
--- NOTE | 2020-09-02 13:49 | CONS ---
CONSULT DATE: 09/02/2020 The patient was seen for Dr. Jean Pierre Rob who is consumer affairs director for our group today apparently. He asked that I see in consult as I was here doing some outpatient procedures. HISTORY: An 84 year old gentleman with weakness, some itching, some weight loss for some time. He has some loose stools on and off. He had some loose stools here, did not have any blood in it. Denied any hematochezia or melena. PAST MEDICAL HISTORY: Enlarged prostate, Parkinson's. PAST SURGICAL HISTORY: Endoscopy eight years ago. He had a few polyps. MEDICATIONS: Includes carbidopa-levodopa, celecoxib, primidone, ropinirole. He said he has taken aspirin, Celebrex in the past. He denied any blood thinner. ALLERGIES: NKDA. FAMILY HISTORY: He denied any family history of colon cancer or stomach cancer. SOCIAL HISTORY: No smoking. No alcohol abuse. REVIEW OF SYSTEMS: Fourteen systems reviewed. He denied any current abdominal pain. Pertinent mainly for the weakness. No chest pain or palpitations. Other systems negative or noncontributory as above and per preadmission questionnaire. LAB DATA AND TESTS: White count 10, hemoglobin 7.7. He did get some blood yesterday. Vital signs stable. His platelets are normal at 180,000. He has CT chest and pelvis pending. According to the emergency room doctor, it looks like his hemoglobin was 6.3 on admission and was up to 7.7 after transfusion. His liver function tests were unremarkable. PHYSICAL EXAMINATION: GENERAL: No acute distress. HEENT: Sclera nonicteric. NECK: No JVD. CHEST: Equal excursion, nonlabored breathing. CVS: Regular rate and rhythm. ABDOMEN: Soft, nontender. No peritoneal signs. EXTREMITIES: No cyanosis. NEURO: Alert, moving extremities grossly symmetrically. PSYCH: Appropriate mood and affect. IMPRESSION: Anemia, weight loss of unclear etiology. CT scan results pending at this time. I was asked to see for consideration of endoscopy to rule out other etiology of his anemia. As he has not had prep could do upper endoscopy today to rule out gastritis, ulcer disease or other etiology. Risks explained in detail but not limited to bleeding, infection, risk of bowel injury or perforation possibly requiring open procedure, risk of missed or nondiagnosis or incomplete exam possibly requiring barium swallow, other studies or procedures. General risk of anesthesia or sedation, but not limited to, he understands and agrees to the planned procedure, will proceed with EGD possible biopsy as an outpatient, risk of bowel injury or perforation possibly requiring open procedure, risk of missed or nondiagnosis or incomplete exam possibly requiring other studies or procedures. He understands and agrees to the planned procedure, will plan EGD later today. If he needs colonoscopy later in the week will probably be Dr. Jean Pierre Rob proceeding. Otherwise await results of the CT scan to evaluate for other etiology as cause of his symptoms.
[2020-09-02] MEDS ORDERED: Golytely Solution 4000 ML PO ONE (16:15)
[2020-09-02 20:04] LABS: Appearance CLEAR (CLEAR); Bacteria RARE /HPF (NEGATIVE); Bilirubin NEGATIVE (NEGATIVE); Blood MODERATE Ery/ul (0-5); Glucose NEGATIVE (NEGATIVE); Ketones NEGATIVE (NEGATIVE); Leukocyte Esterase TRACE (NEGATIVE); Mucus SLIGHT /HPF (NEGATIVE); Nitrite NEGATIVE (NEGATIVE); Protein,Urine Dip NEGATIVE (Negative); Specific Gravity 1.008 (1.005-1.025); Urobilinogen NEGATIVE mg/dL (0-1)
[2020-09-03 03:23] LABS: BASOPHIL % 0.3 % (0.0-0.4); Basophil (Absolute #) 0.03 (0-0.4); Eosinophil % 3.2 % (0.00-5.0); Eosinophil (Absolute #) 0.37 (0-0.5); Hematocrit 27.9 % (42-50); Hemoglobin 8.8 gm/dl (12.5-18.0); Lymphocyte (Absolute #) 0.53 (1.0-4.6); Lymphocytes % 4.6 % (24.0-44.0); Mean Cell Volume 96.5 fl (78-100); Mean Corpuscular Hemoglobin 30.4 pg (26-32); Mean Corpuscular Hgb Concent. 31.5 g/dl (32-36); Mean Platelet Volume 9.8 fl (7.5-11.0); Monocyte (Absolute #) 0.48 (0.0-1.3); Monocytes % 4.2 % (0.0-12.0); Neutrophil % 87.7 % (36.0-66.0); Platelet Count 220 K/mm3 (150-450); Red Blood Count 2.89 M/mm3 (4.1-5.6); Red Cell Distribution Width 14.7 % (11.5-14.0); White Blood Count 11.4 K/mm3 (4.0-10.5)
[2020-09-03 03:44] LABS: ALBUMIN 3.6 g/dL (3.5-5.0); ANION GAP 19.4 MEQ/L (5-15); BILIRUBIN,TOTAL 0.4 mg/dL (0.2-1.3); Calcium 8.6 mg/dL (8.4-10.2); Creatinine 1 8.32 mg/dL (0.66-1.25); EST GLOMERULAR FILTRATION RATE 6.5 ML/MIN; Potassium 4.8 mmol/L (3.5-5.1); Total Protein 6.2 g/dL (6.3-8.2)
[2020-09-03 04:08] LABS: Slide Review 1 YES
[2020-09-03] MEDS: Dextrose 5%-NS IV Solution 1000 ML 1,000 ML IV SCH ×2 (04:24→08:40)
[2020-09-03] MEDS ORDERED: Lactated Ringers 1,000 ML IV ONE (07:12)
[2020-09-03] MEDS ORDERED: DIPRIVAN 200 MG/20 ML IV ONE ×2 (07:12→07:24)
[2020-09-03] MEDS ORDERED: Lactated Ringers 1,000 ML IV SCH (08:00)
--- NOTE | 2020-09-03 08:06 | OP ---
SURGERY DATE/TIME: 09/02/2020 1341 PREOPERATIVE DIAGNOSIS: Anemia unclear etiology, weight loss. POSTOPERATIVE DIAGNOSES: 1) Erosive gastritis. 2) Plus/minus short segment of distal gastroesophagitis. 3) No signs of any active bleeding, ulcers or gross masses. PROCEDURES: 1) EGD with cold biopsy of small bowel to evaluate for celiac sprue. 2) Cold biopsy of antrum to evaluate for Helicobacter pylori. 3) Cold biopsy distal esophagus to evaluate for distal gastroesophagitis. SURGEON: Dr. Miles Morris. ANESTHESIA: MAC. ESTIMATED BLOOD LOSS: Minimal. INDICATIONS: As noted above. Risks and benefits explained in detail and not limited to and consent obtained. DESCRIPTION OF PROCEDURE AND FINDINGS: The patient is taken to the endoscopy room. MAC anesthesia introduced. Scope passed through the gastroesophageal junction to the patent pylorus to the junction of the second and third portion of the duodenum. Proximal duodenum grossly unremarkable. No signs of any ulcers, masses or active bleeding. The scope pulled back to the stomach and had some erosive gastritis. No evidence of any deep ulcer crater. No signs of any current active bleeding. Some old petechial hemorrhage. Cold biopsy taken to evaluate for Helicobacter pylori and for path. On retroflex the gastroesophageal junction snug against the scope. The scope pulled back and gastroesophageal junction about 40 cm. There was a little bit of inflammation distal esophagus just a few short millimeters. Cold biopsy taken to evaluate for distal gastroesophagitis. No gross mass. No signs of any obvious active bleeding in the esophagus. The patient tolerated the procedure well. There were no immediate complications. There is no family here to discuss the findings with.
[2020-09-03] MEDS ORDERED: NORVASC 5 MG PO SCH (14:00)
--- NOTE | 2020-09-03 14:23 | OP ---
SURGERY DATE/TIME: 09/03/2020 0706 PREOPERATIVE DIAGNOSIS: Suspected GI bleed with anemia. POSTOPERATIVE DIAGNOSES: 1) Diverticulosis. 2) Prostatomegaly. 3) No identifiable GI bleed. PROCEDURE: Colonoscopy. SURGEON: Jean Pierre Rob M.D. ANESTHESIA: IV anesthesia. SPECIMEN: None. HISTORY: The patient is an 84 year-old male who is in the hospital for anemia, suspected GI bleed. He underwent an EGD without a source of bleeding. He was undergoing a prep when his CT scan revealed distended bladder and hydroureter. A Matthews catheter was placed. He did have hematuria. He did complete his preparation. He does have a history of polyp and did want to proceed with colonoscopy regardless. FINDINGS: Extensive diverticulosis, prostatomegaly, otherwise normal. No blood or old blood. No source of bleeding. DESCRIPTION OF PROCEDURE: The patient was brought to endoscopy suite. A time out was performed. IV anesthesia was induced. External exam was normal. Digital exam revealed prostatomegaly which was smooth. The scope was inserted, advanced to the cecum confirmed by the ileocecal valve and appendiceal orifice. Preparation was excellent. The scope was then withdrawn. Greater than 6 minute withdrawal time. There was extensive descending and sigmoid diverticulosis. The scope was retroflexed in the rectum and normal. There was no identifiable source of bleeding in the colon. There was no blood in the colon. The patient tolerated the procedure well. RECOMMENDATION: The patient is to undergo urologic work up per medicine. Next colonoscopy would be in five years for surveillance.
[2020-09-03] MEDS ORDERED: DULCOLAX 5 MG PO PRN (17:47)
--- NOTE | 2020-09-03 18:02 | PCM.NOTE ---
Date and Time: 09/03/20 1800 Subjective Assessment: doing ok, s/p colonoscopy- results reviewed. No malignancy - Review of Systems Constitutional: No Fever, No Chills Eyes: No Symptoms Ears, Nose, & Throat: No Symptoms Respiratory: No Cough, No Short Of Breath Cardiac: No Chest Pain, No Edema, No Syncope Abdominal/Gastrointestinal: No Abdominal Pain, No Nausea, No Vomiting, No Diarrhea Genitourinary Symptoms: No Dysuria Musculoskeletal: No Back Pain, No Neck Pain Skin: No Rash Neurological: No Dizziness, No Focal Weakness, No Sensory Changes Psychological: No Symptoms Endocrine: No Symptoms Hematologic/Lymphatic: No Symptoms Immunological/Allergic: No Symptoms Objective Exam General Appearance: no apparent distress, alert Neurologic Exam: alert, oriented x 3, cooperative, normal mood/affect, nml cerebellar function, sensation nml, No motor deficits Skin Exam: normal color, warm, dry Eye Exam: PERRL, EOMI, eyes nml inspection Ears, Nose, Throat Exam: normal ENT inspection, pharynx normal, moist mucous membranes Neck Exam: normal inspection, non-tender, supple, full range of motion Respiratory Exam: normal breath sounds, lungs clear, No respiratory distress Cardiovascular Exam: regular rate/rhythm, normal heart sounds Gastrointestinal/Abdomen Exam: soft, No tenderness, No mass Extremity Exam: normal inspection, normal range of motion Back Exam: normal inspection, normal range of motion, No CVA tenderness, No vertebral tenderness Male Genitalia Exam: deferred Rectal Exam: deferred OBJECTIVE DATA Vital Signs: Vital Signs - 24 hr Temp Pulse Resp BP Pulse Ox 09/03/20 17:46 97.9 F 69 19 142/63 100 09/03/20 16:00 71 09/03/20 14:00 97.7 F 64 16 162/76 100 09/03/20 12:00 70 09/03/20 10:00 98.4 F 65 14 160/71 100 09/03/20 08:00 58 L 09/03/20 06:52 99.0 F 69 12 178/78 99 09/03/20 06:00 99.0 F 66 12 178/78 99 09/03/20 04:00 61 12 09/03/20 02:00 61 10 L 156/96 98 09/03/20 00:01 98.3 F 55 L 10 L 98 09/03/20 00:00 12 09/02/20 23:00 98.3 F 69 12 159/71 99 09/02/20 20:00 62 17 09/02/20 19:58 98.5 F 62 17 186/91 99 Pain Assessment - Last Documented Pain Intensity 0 Intake and Output: Intake & Output 09/01/20 09/02/20 09/03/20 09/04/20 11:59 11:59 11:59 11:59 Intake Total 1640 1152 960 Output Total 5867 800 Balance 1649 -7784 160 Weight 75.4 kg 71.1 kg Lab Results: Lab Results-Last 24 Hours 09/01/20 09/02/20 09/03/20 Range/Units 19:40 19:40 03:15 WBC 11.4 H (4.0-10.5) K/mm3 RBC 2.89 L (4.1-5.6) M/mm3 Hgb 8.8 L (12.5-18.0) gm/dl Hct 27.9 L (42-50) % MCV 96.5 (78-100) fl MCH 30.4 (26-32) pg MCHC 31.5 L (32-36) g/dl RDW 14.7 H (11.5-14.0) % Plt Count 220 (150-450) K/mm3 MPV 9.8 (7.5-11.0) fl Gran % 87.7 H (36.0-66.0) % Eos # (Auto) 0.37 (0-0.5) Absolute Lymphs (auto) 0.53 L (1.0-4.6) Absolute Monos (auto) 0.48 (0.0-1.3) Lymphocytes % 4.6 L (24.0-44.0) % Monocytes % 4.2 (0.0-12.0) % Eosinophils % 3.2 (0.00-5.0) % Basophils % 0.3 (0.0-0.4) % Absolute Granulocytes 10.00 H (1.4-6.9) Basophils # 0.03 (0-0.4) Smear Path Review Sodium (137-145) mmol/L Potassium (3.5-5.1) mmol/L Chloride (98-107) mmol/L Carbon Dioxide (22-30) mmol/L Anion Gap (5-15) MEQ/L BUN (9-20) mg/dL Creatinine (0.66-1.25) mg/dL Estimated GFR ML/MIN Glucose (74-106) mg/dL Calcium (8.4-10.2) mg/dL Total Bilirubin (0.2-1.3) mg/dL AST (17-59) U/L ALT (0-50) U/L Alkaline Phosphatase (38-126) U/L Serum Total Protein (6.3-8.2) g/dL Albumin (3.5-5.0) g/dL Urine Color YELLOW (YELLOW) Urine Appearance CLEAR (CLEAR) Urine pH 6.0 (5-6) Ur Specific [place] 1.008 (1.005-1.025) Urine Protein NEGATIVE (Negative) Urine Ketones NEGATIVE (NEGATIVE) Urine Blood MODERATE (0-5) Angel/ul Urine Nitrite NEGATIVE (NEGATIVE) Urine Bilirubin NEGATIVE (NEGATIVE) Urine Urobilinogen NEGATIVE (0-1) mg/dL Ur Leukocyte Esterase TRACE (NEGATIVE) Urine WBC (Auto) 6-10 (0-5) /HPF Urine RBC (Auto) 6-10 (0-2) /HPF U Epithel Cells (Auto) NONE (FEW) /HPF Urine Bacteria (Auto) RARE (NEGATIVE) /HPF Urine Mucus (Auto) SLIGHT (NEGATIVE) /HPF Urine Culture Reflexed YES (NO) Urine Glucose NEGATIVE (NEGATIVE) mg/dL Stool Occult Blood NEGATIVE (NEGATIVE) Slides for Path Review YES 09/03/20 Range/Units 03:15 WBC (4.0-10.5) K/mm3 RBC (4.1-5.6) M/mm3 Hgb (12.5-18.0) gm/dl Hct (42-50) % MCV (78-100) fl MCH (26-32) pg MCHC (32-36) g/dl RDW (11.5-14.0) % Plt Count (150-450) K/mm3 MPV (7.5-11.0) fl Gran % (36.0-66.0) % Eos # (Auto) (0-0.5) Absolute Lymphs (auto) (1.0-4.6) Absolute Monos (auto) (0.0-1.3) Lymphocytes % (24.0-44.0) % Monocytes % (0.0-12.0) % Eosinophils % (0.00-5.0) % Basophils % (0.0-0.4) % Absolute Granulocytes (1.4-6.9) Basophils # (0-0.4) Smear Path Review Sodium 140 (137-145) mmol/L Potassium 4.8 (3.5-5.1) mmol/L Chloride 113 H (98-107) mmol/L Carbon Dioxide 13 L* (22-30) mmol/L Anion Gap 19.4 H (5-15) MEQ/L BUN 71 H (9-20) mg/dL Creatinine 8.32 H (0.66-1.25) mg/dL Estimated GFR 6.5 ML/MIN Glucose 73 L (74-106) mg/dL Calcium 8.6 (8.4-10.2) mg/dL Total Bilirubin 0.40 (0.2-1.3) mg/dL AST 17 (17-59) U/L ALT 5 (0-50) U/L Alkaline Phosphatase 61 (38-126) U/L Serum Total Protein 6.2 L (6.3-8.2) g/dL Albumin 3.6 (3.5-5.0) g/dL Urine Color (YELLOW) Urine Appearance (CLEAR) Urine pH (5-6) Ur Specific [place] (1.005-1.025) Urine Protein (Negative) Urine Ketones (NEGATIVE) Urine Blood (0-5) Angel/ul Urine Nitrite (NEGATIVE) Urine Bilirubin (NEGATIVE) Urine Urobilinogen (0-1) mg/dL Ur Leukocyte Esterase (NEGATIVE) Urine WBC (Auto) (0-5) /HPF Urine RBC (Auto) (0-2) /HPF U Epithel Cells (Auto) (FEW) /HPF Urine Bacteria (Auto) (NEGATIVE) /HPF Urine Mucus (Auto) (NEGATIVE) /HPF Urine Culture Reflexed (NO) Urine Glucose (NEGATIVE) mg/dL Stool Occult Blood (NEGATIVE) Slides for Path Review Radiology Exams: Radiology Procedures Category Date Time Status ABDOMEN AND PELVIS W/0 CONTRAS [CT] Routine Exams 09/02/20 09:15 Completed CHEST 1 VIEW (PORTABLE) Stat Exams 09/01/20 18:29 Completed CHEST WITHOUT CONTRAST [CT] Routine Exams 09/02/20 09:15 Completed Multi-Disciplinary Progress Notes: Multi-Disciplinary Progress Notes 09/03/20 10:54 Case Management Note by Jannet Lang PATIENT STILL ACUTELY ILL- WILL CONTINUE TO FOLLOW Initialized on 09/03/20 10:54 - END OF NOTE Assessment/Plan (1) Acute on chronic renal failure Current Visit: Yes Status: Acute Qualifiers: Acute renal failure type: unspecified Chronic kidney disease stage: stage 4 (severe) Qualified Code(s): N17.9 - Acute kidney failure, unspecified; N18.4 - Chronic kidney disease, stage 4 (severe) Assessment & Plan: Chief Complaint Diagnosis c/o diarrhea, low hemoglobin Allergies Allergy/AdvReac Type Severity Reaction Status Date / Time No Known Drug Allergies Allergy Unverified 09/01/20 18:16 Vital Signs (Last 24 hours) Temp Pulse Resp BP Pulse Ox 09/03/20 17:46 97.9 F 69 19 142/63 100 09/03/20 16:00 71 09/03/20 14:00 97.7 F 64 16 162/76 100 09/03/20 12:00 70 09/03/20 10:00 98.4 F 65 14 160/71 100 09/03/20 08:00 58 L 09/03/20 06:52 99.0 F 69 12 178/78 99 09/03/20 06:00 99.0 F 66 12 178/78 99 09/03/20 04:00 61 12 09/03/20 02:00 61 10 L 156/96 98 09/03/20 00:01 98.3 F 55 L 10 L 98 09/03/20 00:00 12 09/02/20 23:00 98.3 F 69 12 159/71 99 09/02/20 20:00 62 17 09/02/20 19:58 98.5 F 62 17 186/91 99 Home Medications Medication Instructions Recorded Confirmed Last Taken Type Carbidopa/Levodopa [Carbidopa-Levo 1 each PO BID 09/01/20 09/01/20 09/01/20 History ER 25-100 Tab] Celecoxib 100 mg [celeBREX 100 100 mg PO DAILY 09/01/20 09/01/20 09/01/20 History MG] Primidone 50 MG [Mysoline 50Mg] 50 mg PO BID 09/01/20 09/01/20 09/01/20 History Ropinirole HCl 0.25 mg PO BID 09/01/20 09/01/20 09/01/20 History Current Medications Generic Name Dose Route Start Last Admin Trade Name Dane PRN Reason Stop Dose Admin Bisacodyl 10 mg 09/03/20 17:47 Dulcolax 5 Mg PO 10/03/20 17:46 QDP PRN Finasteride 5 mg 09/04/20 10:00 Proscar 5 Mg PO 10/04/20 09:59 DAILY [facility] Furosemide 40 mg 09/03/20 22:00 Lasix 40 Mg/4 Ml IV 10/03/20 21:59 BID SHALINI Hydralazine HCl 25 mg 09/03/20 22:00 Apresoline 25 Mg Tablet PO 10/03/20 21:59 TID [facility] Sodium Bicarbonate 150 meq/ 1,150 mls @ 70 mls/hr 09/03/20 18:00 Dextrose IV 10/03/20 17:59 .[id number] [facility] Metoprolol Tartrate 25 mg 09/03/20 22:00 Lopressor 25mg Tab PO 10/03/20 21:59 BID [facility] Miscellaneous Medication 1 each 09/02/20 10:00 09/02/20 16:50 No Nsaids/Asa/Plavix MC 09/08/20 10:01 1 each DAILY [facility] Administration Tamsulosin HCl 0.4 mg 09/03/20 20:00 Flomax 0.4 Mg PO 10/03/20 19:59 2000 [facility] Discontinued Medications Generic Name Dose Route Start Last Admin Trade Name Dane PRN Reason Stop Dose Admin Amlodipine Besylate 2.5 mg 09/03/20 14:00 09/03/20 15:07 Norvasc 5 Mg PO 10/03/20 13:59 2.5 mg QAM SHALINI Administration Calcium Gluconate 1,000 mg 09/01/20 18:48 09/01/20 19:34 Calcium Gluconate 10% 1000 Mg IV 09/01/20 18:49 1,000 mg STAT ONE Administration Calcium Gluconate Confirm 09/01/20 19:26 Calcium Gluconate 10% 1000 Mg Administered 09/01/20 19:27 Dose 1,000 mg IV .STK-MED ONE Dextrose 50 ml 09/01/20 18:48 09/01/20 19:35 D50w 50 Ml Abboject IV 09/01/20 18:49 50 ml STAT ONE Administration Dextrose Confirm 09/01/20 19:29 D50w 50 Ml Abboject Administered 09/01/20 19:30 Dose 50 ml IV .STK-MED ONE Sodium Chloride 1,000 mls @ 999 mls/hr 09/01/20 18:27 09/01/20 18:35 Sodium Chloride 0.9% 1000 Ml IV 09/01/20 19:27 999 mls/hr .Q1H1M STA Administration Sodium Chloride Confirm 09/01/20 18:34 Sodium Chloride 0.9% 1000 Ml Administered 09/01/20 18:35 Dose 1,000 mls @ ud .ROUTE .STK-MED ONE Sodium Chloride Confirm 09/01/20 20:20 Sodium Chloride 0.9% 1000 Ml Administered 09/01/20 20:21 Dose 1,000 mls @ ud .ROUTE .STK-MED ONE Sodium Chloride 1,000 mls @ 150 mls/hr 09/01/20 20:30 09/01/20 20:28 Sodium Chloride 0.9% 1000 Ml IV 10/01/20 20:29 150 mls/hr .Q6H40M SHALINI Administration Sodium Chloride Confirm 09/01/20 21:03 Sodium Chloride 0.9% 1000 Ml Administered 09/01/20 21:04 Dose 1,000 mls @ ud .ROUTE .STK-MED ONE Potassium Chloride/Sodium Chloride 1,000 mls @ 150 mls/hr 09/01/20 22:31 09/01/20 23:49 Sodium Chloride 0.9% W/ 20 Meq Kcl/Liter IV 10/01/20 22:30 Not Given .Q6H40M SHALINI Sodium Chloride 1,000 mls @ 50 mls/hr 09/01/20 23:30 09/02/20 20:37 Sodium Chloride 0.9% 1000 Ml IV 10/01/20 23:29 150 mls/hr .Q20H SHALINI Administration Lactated Ringer's 1,000 mls @ 50 mls/hr 09/03/20 08:00 09/03/20 06:57 Lactated Ringers IV 10/03/20 07:59 50 mls/hr .Q20H SHALINI Administration Dextrose/Sodium Chloride 1,000 mls @ 100 mls/hr 09/03/20 04:30 09/03/20 08:40 Dextrose 5%-Ns Iv Solution 1000 Ml IV 10/03/20 04:29 100 mls/hr .Q10H SHALINI Administration Lactated Ringer's Confirm 09/03/20 07:12 Lactated Ringers Administered 09/03/20 07:13 Dose 1,000 mls @ ud IV .STK-MED ONE Insulin Human Regular 5 unit 09/01/20 18:48 09/01/20 19:27 Humulin R IV 09/01/20 18:49 5 unit STAT ONE Administration Insulin Human Regular Confirm 09/01/20 19:28 Humulin R Administered 09/01/20 19:29 Dose 5 unit .ROUTE .STK-MED ONE Polyethylene Glycol/Electrolytes 4,000 ml 09/02/20 16:15 09/02/20 16:00 Golytely Solution 4000 Ml PO 09/02/20 16:16 4,000 ml ONCE@1400 ONE Administration Propofol Confirm 09/02/20 13:42 Diprivan 200 Mg/20 Ml Administered 09/02/20 13:43 Dose 200 mg IV .STK-MED ONE Propofol Confirm 09/03/20 07:12 Diprivan 200 Mg/20 Ml Administered 09/03/20 07:13 Dose 200 mg IV .STK-MED ONE Propofol Confirm 09/03/20 07:24 Diprivan 200 Mg/20 Ml Administered 09/03/20 07:25 Dose 200 mg IV .STK-MED ONE Sodium Bicarbonate 50 meq 09/01/20 18:48 09/01/20 19:37 Sodium Bicarbonate 50 Meq/50 Ml Abboject IV 09/01/20 18:49 50 meq STAT ONE Administration Sodium Bicarbonate Confirm 09/01/20 19:29 Sodium Bicarbonate 50 Meq/50 Ml Abboject Administered 09/01/20 19:30 Dose 50 meq IV .STK-MED ONE Sodium Polystyrene Sulfonate 30 g 09/01/20 18:51 09/01/20 19:34 Kayexylate 15 Gm/60 Ml PO 09/01/20 18:52 30 g STAT ONE Administration Sodium Polystyrene Sulfonate Confirm 09/01/20 19:28 Kayexylate 15 Gm/60 Ml Administered 09/01/20 19:29 Dose 30 g .ROUTE .STK-MED ONE Intake & Output (Last 24 hours) 09/01/20 09/02/20 09/03/20 09/04/20 11:59 11:59 11:59 11:59 Intake Total 1640 2212 960 Output Total 5862 800 Balance 1649 -2016 160 Weight 75.4 kg 71.1 kg Microbiology Results (Last 24 hours) 09/01/20 19:11 Blood Blood Culture Gram Stain - Pending 09/01/20 19:11 Blood Blood Culture - Preliminary NO GROWTH TO DATE 09/01/20 18:34 Blood Blood Culture Gram Stain - Pending 09/01/20 18:34 Blood Blood Culture - Preliminary NO GROWTH TO DATE 09/02/20 19:40 Clean Catch Midstream Urine Culture - Pending Laboratory Results (Last 24 hours) 09/03/20 09/03/20 09/02/20 03:15 03:15 19:40 WBC 11.4 H RBC 2.89 L Hgb 8.8 L Hct 27.9 L MCV 96.5 MCH 30.4 MCHC 31.5 L RDW 14.7 H Plt Count 220 MPV 9.8 Gran % 87.7 H Eos # (Auto) 0.37 Absolute Lymphs (auto) 0.53 L Absolute Monos (auto) 0.48 Lymphocytes % 4.6 L Monocytes % 4.2 Eosinophils % 3.2 Basophils % 0.3 Absolute Granulocytes 10.00 H Basophils # 0.03 Smear Path Review Sodium 140 Potassium 4.8 Chloride 113 H Carbon Dioxide 13 L* Anion Gap 19.4 H BUN 71 H Creatinine 8.32 H Estimated GFR 6.5 Glucose 73 L Calcium 8.6 Total Bilirubin 0.40 AST 17 ALT 5 Alkaline Phosphatase 61 Serum Total Protein 6.2 L Albumin 3.6 Urine Color YELLOW Urine Appearance CLEAR Urine pH 6.0 Ur Specific [place] 1.008 Urine Protein NEGATIVE Urine Ketones NEGATIVE Urine Blood MODERATE Urine Nitrite NEGATIVE Urine Bilirubin NEGATIVE Urine Urobilinogen NEGATIVE Ur Leukocyte Esterase TRACE Urine WBC (Auto) 6-10 Urine RBC (Auto) 6-10 U Epithel Cells (Auto) NONE Urine Bacteria (Auto) RARE Urine Mucus (Auto) SLIGHT Urine Culture Reflexed YES Urine Glucose NEGATIVE Stool Occult Blood Slides for Path Review YES 09/01/20 19:40 WBC RBC Hgb Hct MCV MCH MCHC RDW Plt Count MPV Gran % Eos # (Auto) Absolute Lymphs (auto) Absolute Monos (auto) Lymphocytes % Monocytes % Eosinophils % Basophils % Absolute Granulocytes Basophils # Smear Path Review Sodium Potassium Chloride Carbon Dioxide Anion Gap BUN Creatinine Estimated GFR Glucose Calcium Total Bilirubin AST ALT Alkaline Phosphatase Serum Total Protein Albumin Urine Color Urine Appearance Urine pH Ur Specific [place] Urine Protein Urine Ketones Urine Blood Urine Nitrite Urine Bilirubin Urine Urobilinogen Ur Leukocyte Esterase Urine WBC (Auto) Urine RBC (Auto) U Epithel Cells (Auto) Urine Bacteria (Auto) Urine Mucus (Auto) Urine Culture Reflexed Urine Glucose Stool Occult Blood NEGATIVE Slides for Path Review Orders (Last 24 hours) Category Date Time Status WALK [Walk With Assistance] TID Activity 09/03/20 13:23 Active Catheter Care Record Q6H Care 09/02/20 19:58 Active Catheter-Phillips Chaves STAT Care 09/02/20 19:58 Active Miscellaneous Nursing Order ROUTINE Care 09/03/20 13:23 Active Consult Nephrology ROUTINE Cons 09/03/20 04:16 Active House Regular Diet Diet 09/03/20 Dinner Active NPO Diet 09/03/20 00:01 Completed CBC AM.LAB Lab 09/05/20 04:00 Ordered CBC AM.LAB Lab 09/06/20 04:00 Ordered CBC AM.LAB Lab 09/07/20 04:00 Ordered CBC AM.LAB Lab 09/08/20 04:00 Ordered CBC AM.LAB Lab 09/09/20 04:00 Ordered CBC W DIFF AM.LAB Lab 09/03/20 03:15 Completed CBC W DIFF AM.LAB Lab 09/04/20 04:00 Ordered CMP AM.LAB Lab 09/03/20 03:15 Completed CMP AM.LAB Lab 09/04/20 04:00 Ordered CMP AM.LAB Lab 09/05/20 04:00 Ordered CMP AM.LAB Lab 09/06/20 04:00 Ordered CMP AM.LAB Lab 09/07/20 04:00 Ordered CMP AM.LAB Lab 09/08/20 04:00 Ordered CMP AM.LAB Lab 09/09/20 04:00 Ordered CULTURE,URINE Stat Lab 09/02/20 19:40 Received MAG [MAGNESIUM] AM.LAB Lab 09/04/20 04:00 Ordered MAG [MAGNESIUM] AM.LAB Lab 09/05/20 04:00 Ordered MAG [MAGNESIUM] AM.LAB Lab 09/06/20 04:00 Ordered MAG [MAGNESIUM] AM.LAB Lab 09/07/20 04:00 Ordered MAG [MAGNESIUM] AM.LAB Lab 09/08/20 04:00 Ordered MAG [MAGNESIUM] AM.LAB Lab 09/09/20 04:00 Ordered Pathologist Review Routine Lab 09/03/20 03:15 Completed UA W/RFX UR CULTURE Stat Lab 09/02/20 19:40 Completed Amlodipine Besylate 5 mg [Norvasc 5 mg] Med 09/03/20 14:00 Discontinued 2.5 mg PO QAM Bisacodyl 5 mg [Dulcolax 5 mg] Med 09/03/20 17:47 Active 10 mg PO QDP PRN D5ns 1000 ml [Dextrose 5%-NS IV Solution 1000 ML] 1,000 Med 09/03/20 04:30 Discontinued ml IV 100 mls/hr D5w 1000 ml [Dextrose 5%/Water IV Soln. 1000 ML] 1,000 Med 09/03/20 18:00 Active ml Sodium Bicarbonate 50Meq Vial* [Sodium Bicarbonate 50 MEQ/50 ML VIAL] 150 meq IV 70 mls/hr Finasteride 5 mg [Proscar 5 MG] Med 09/04/20 10:00 Active 5 mg PO DAILY Furosemide 40 mg/4 ml [Lasix 40 MG/4 ML] Med 09/03/20 22:00 Active 40 mg IV BID HydrALAzine HCL 25 MG TAB [Apresoline 25 MG TABLET Med 09/03/20 22:00 Active *] 25 mg PO TID Metoprolol Tartrate 25 mg [Lopressor 25MG Tab] Med 09/03/20 22:00 Active 25 mg PO BID Propofol 200 mg/20 ml [Diprivan 200 mg/20 ml] Med 09/03/20 07:12 Discontinued 200 mg IV .STK-MED ONE Propofol 200 mg/20 ml [Diprivan 200 mg/20 ml] Med 09/03/20 07:24 Discontinued 200 mg IV .STK-MED ONE Ringers Solution,Lactated [Lactated Ringers] 1,000 ml Med 09/03/20 08:00 Discontinued IV 50 mls/hr Ringers Solution,Lactated [Lactated Ringers] 1,000 ml Med 09/03/20 07:12 Discontinued IV UD Tamsulosin HCl 0.4 mg [Flomax 0.4 MG] Med 09/03/20 20:00 Active 0.4 mg PO 2000 PT Eval & Treat ( Order) ONCE PT 09/03/20 10:00 Completed Transfer Order Routine Transfer 09/03/20 Completed Patient Care Notes (Last 24 hours) 09/03/20 13:19 Nursing Note by Jody Calhoun rounded with dr. araya. new order obtained for cbc and cmp in am, norvasc 2.5mg po daily, irrigate chaves cath to see if it will clear, and walk pt. Initialized on 09/03/20 13:19 - END OF NOTE 09/03/20 10:54 Case Management Note by Jannet Lang PATIENT STILL ACUTELY ILL- WILL CONTINUE TO FOLLOW Initialized on 09/03/20 10:54 - END OF NOTE 09/03/20 07:00 Nursing Note by Saundra Cronin SHELTER MONITOR here for pt transport for colonoscopy, pt armband and orders checked, pt placed on strecher and sent to OR with chart and inside sales supervisor. Pt has no questions. Initialized on 09/03/20 07:00 - END OF NOTE 09/03/20 04:15 Nursing Note by Saundra Cronin notified md of pt cadena red urine without clots , notified MD of pt am lab values, gave orders noted Initialized on 09/03/20 04:15 - END OF NOTE 09/02/20 20:26 Nursing Note by Saundra Cronin 1929 notified of pt BP and abdominal distention, IVF rate. gave orders noted 1957 after placing f/c per orders pt states a relief from distention denied pain noted Initialized on 09/02/20 20:26 - END OF NOTE Code(s): N17.9 - ACUTE KIDNEY FAILURE, UNSPECIFIED; N18.9 - CHRONIC KIDNEY DISEASE, UNSPECIFIED (2) Iron deficiency anemia due to chronic blood loss Current Visit: Yes Status: Acute Code(s): D50.0 - IRON DEFICIENCY ANEMIA SECONDARY TO BLOOD LOSS (CHRONIC) (3) Dehydration Current Visit: Yes Status: Acute Code(s): E86.0 - DEHYDRATION (4) Hyperkalemia Current Visit: Yes Status: Acute Code(s): E87.5 - HYPERKALEMIA
[2020-09-03] MEDS: Sodium Bicarbonate 50 MEQ/50 ML VIAL*** 150 MEQ in Dextrose 5%/Water IV Soln. 1000 ML 1... IV SCH (18:10)
[2020-09-03 18:40] LABS: Appearance CLOUDY (CLEAR); Bacteria FEW /HPF (NEGATIVE); Bilirubin NEGATIVE (NEGATIVE); Blood LARGE Ery/ul (0-5); Glucose 50 mg/dL (NEGATIVE); Ketones TRACE (NEGATIVE); Leukocyte Esterase NEGATIVE (NEGATIVE); Nitrite NEGATIVE (NEGATIVE); Protein,Urine Dip 100 (Negative); RBC >101 /HPF (0-2); Specific Gravity 1.011 (1.005-1.025); Urobilinogen NEGATIVE mg/dL (0-1)
[2020-09-03 19:43] LABS: Folate (Folic Acid) 4.76 ng/mL (2.76 - >20)
[2020-09-03] MEDS ORDERED: Flomax 0.4 MG PO SCH (20:00)
[2020-09-03] MEDS: Apresoline 25 MG TABLET PO SCH (21:01)
[2020-09-03] MEDS: Lopressor 25MG Tab PO SCH (21:01)
[2020-09-03] MEDS: Lasix 40 MG/4 ML IV SCH (21:01)
[2020-09-04 05:13] LABS: Absolute Neutrophil Ct (ANC) 6.61 (1.4-6.9); BASOPHIL % 0.2 % (0.0-0.4); Basophil (Absolute #) 0.02 (0-0.4); Eosinophil % 10.8 % (0.00-5.0); Eosinophil (Absolute #) 0.93 (0-0.5); Hematocrit 23.3 % (42-50); Hemoglobin 7.4 gm/dl (12.5-18.0); Lymphocyte (Absolute #) 0.58 (1.0-4.6); Lymphocytes % 6.7 % (24.0-44.0); Mean Cell Volume 95.9 fl (78-100); Mean Corpuscular Hemoglobin 30.5 pg (26-32); Mean Corpuscular Hgb Concent. 31.8 g/dl (32-36); Mean Platelet Volume 10.4 fl (7.5-11.0); Monocyte (Absolute #) 0.47 (0.0-1.3); Monocytes % 5.5 % (0.0-12.0); Neutrophil % 76.8 % (36.0-66.0); Platelet Count 208 K/mm3 (150-450); Red Blood Count 2.43 M/mm3 (4.1-5.6); Red Cell Distribution Width 14.3 % (11.5-14.0); White Blood Count 8.6 K/mm3 (4.0-10.5)
[2020-09-04 05:19] LABS: ALBUMIN 2.9 g/dL (3.5-5.0); ANION GAP 15.8 MEQ/L (5-15); BILIRUBIN,TOTAL 0.3 mg/dL (0.2-1.3); Calcium 7.5 mg/dL (8.4-10.2); Creatinine 1 7.02 mg/dL (0.66-1.25); Total Protein 5.4 g/dL (6.3-8.2)
[2020-09-04 05:48] LABS: Potassium 3.6 mmol/L (3.5-5.1)
[2020-09-04 07:17] VITALS: BP 159/60; PULSE 65; O2SAT 99
[2020-09-04 07:48] LABS: Slide Review 1 YES
[2020-09-04] MEDS: Lasix 40 MG/4 ML IV SCH (09:16)
[2020-09-04] MEDS: Apresoline 25 MG TABLET PO SCH (09:16)
[2020-09-04] MEDS: Lopressor 25MG Tab PO SCH (09:16)
[2020-09-04] MEDS: Sodium Bicarbonate 50 MEQ/50 ML VIAL*** 150 MEQ in Dextrose 5%/Water IV Soln. 1000 ML 1... IV SCH (09:34)
[2020-09-04] MEDS ORDERED: MYSOLINE 50MG PO SCH (10:00)
[2020-09-04] MEDS ORDERED: Sinemet 25/100 MG PO SCH (10:00)
[2020-09-04] MEDS ORDERED: Requip 0.5 MG PO SCH (10:00)
[2020-09-04] MEDS ORDERED: Proscar 5 MG PO SCH (10:00)
--- NOTE | 2020-09-04 10:40 | CONS ---
CONSULT DATE: 09/03/2020 REASON FOR CONSULT: Acute kidney disease. HISTORY: The patient is an 84 year old gentleman who has history of Parkinson's disease and osteoarthritis who has been on Celebrex for the last ten years along with Parkinson medications. He started feeling poorly three weeks ago. He could not eat or drink well. He had difficulty urinating. He lost his sense of taste and smell a few days ago. He started becoming more and more weak. He was unable to get out of bed. He had diarrhea for a few days off and on. He finally came to the emergency room. In the emergency room, he was found to have creatinine above 8, potassium above 6. He was admitted for further management. He underwent CT scan that showed distended urinary bladder. Matthews catheter was placed. He had hematuria. Right now he has indwelling Matthews catheter with ongoing gross hematuria. His hemoglobin is low. He did have evaluation for possible GI bleed which has been negative so far. Because of his persistent increased BUN and creatinine nephrology was consulted today. The patient denies any active vomiting or diarrhea today. Denies any fever. He has ongoing hematuria. He has indwelling Matthesw. He complains of generalized weakness, complains of leg edema. REVIEW OF SYSTEMS: All other systems were reviewed and negative except as stated above. PAST MEDICAL HISTORY: Parkinson's disease. Osteoarthritis. Benign prostatic hypertrophy. MEDICATIONS: Home medications includes Celebrex along with carbidopa/levodopa, primidone, ropinirole. The medicines in the hospital now were reviewed. ALLERGIES: NKDA. SOCIAL HISTORY: He is and lives with his . He denies any tobacco, alcohol or illicit substance abuse. FAMILY HISTORY: Denies any kidney disease in the family. PHYSICAL EXAMINATION: The patient is awake, alert, oriented, not in any acute distress. VITAL SIGNS: Temperature 97.7F, pulse rate 67, respiratory rate 14, blood pressure 166/76. Saturating 99% on room air. HEENT: Head is atraumatic, normocephalic. Eyes nonicteric, positive pallor. ENT mucosa moist of the mouth. NECK: No JVD. Trachea midline. CHEST: Bilateral rhonchi, occasional rales. No respiratory distress. CVS: Appears regular. EXTREMITIES: 1+ peripheral edema bilateral. No cyanosis. ABDOMEN: Soft, nontender, positive bowel sounds. NEUROLOGIC: Awake, alert, oriented x3, following commands and answering all questions appropriately. The patient has some involuntary tremors. : Indwelling Matthews with gross hematuria seen. PSYCHIATRIC: Appropriate mood and affect. SKIN: Warm and dry. LAB DATA AND TESTS: Initially his hemoglobin was 6.3, white blood cells 11.8, sodium 132, potassium 6.4, bicarb 13, BUN 81, creatinine 8.64. Today, BUN 71, creatinine 8.32, sodium 140, potassium 4.8, bicarb 13, GFR 6.5. Hemoglobin 8.8, white blood cells 11.4. CT scan of abdomen and pelvis showed distended urinary bladder, enlarged prostate, bilateral hydronephrosis and cyst on the left kidney. CT chest showed diffuse patchy bilateral ground-glass opacities with tiny effusions, old granulomatous disease. ASSESSMENT AND PLAN: An 84 year old gentleman with: 1) Acute renal failure/acute kidney disease likely secondary to a combination of obstructive uropathy with urinary retention and benign prostatic hypertrophy and some contribution from NSAID-celecoxib induced nephropathy. I agree with IV fluids. I will start him on Flomax, tamsulosin and finasteride. I will leave the Matthews catheter in. Will start IV fluids. Will change him to BiPAP because acidosis. Will monitor input, output, renal function, fluids, electrolytes closely. Will order ultrasound to look at chronic disease process. I will order work up for autoimmune as cause of renal dysfunction seems less likely. If renal functions do not improve he may require dialysis. 2) Acidosis likely secondary to poor renal function. I also have him on bicarb drip and monitor closely. 3) Anemia likely due to combination of poor renal function, blood loss or hematuria. I will check iron, B12, folic acid, monitor hemoglobin. 4) Hypertension. I will start him on metoprolol and hydralazine. Monitor blood pressure. Avoid amlodipine because of edema. 5) Edema. I will order echocardiogram and stop amlodipine and will start him on Lasix and monitor closely. 6) Suspected COVID-19 infection. The patient has chest infiltrates. The patient had diarrhea, had loss of taste and smell. His COVID swab was negative and will repeat the COVID swab and monitor him closely. 7) Parkinson's disease. Management per Dr. Mondragon. 8) Osteoarthritis. I recommend avoiding NSAID'S including Celebrex using alternative agents for pain medications. Thank you for this consultation.
--- NOTE | 2020-09-04 11:55 | PCM.DS ---
Discharge Summary Date of Admission: 09/01/20 22:28 Admitting Physician: ABRAHAN ARAYA Consults: Consults on Case 09/02/20 06:55 Consult Surgery ROUTINE 09/02/20 15:10 Consult Surgery ROUTINE 09/03/20 04:16 Consult Nephrology ROUTINE Primary Care Provider: ABRAHAN ARAYA Allergies Allergies No Known Drug Allergies Allergy (Unverified 09/01/20 18:16) Hospital Summary - Hospital Course Hospital Course: Chief Complaint Diagnosis c/o diarrhea, low hemoglobin Allergies Allergy/AdvReac Type Severity Reaction Status Date / Time No Known Drug Allergies Allergy Unverified 09/01/20 18:16 Vital Signs (Last 24 hours) Temp Pulse Resp BP Pulse Ox 09/04/20 08:00 16 09/04/20 07:16 97.9 F 65 12 159/60 99 09/04/20 04:00 98.8 F 62 16 161/73 100 09/04/20 00:00 16 09/03/20 23:46 98.8 F 59 L 16 100/54 100 09/03/20 20:00 17 09/03/20 19:50 98.8 F 66 17 156/73 100 09/03/20 17:46 97.9 F 69 19 142/63 100 09/03/20 16:00 71 09/03/20 14:00 97.7 F 64 16 162/76 100 09/03/20 12:00 70 Home Medications Medication Instructions Recorded Confirmed Last Taken Type Carbidopa/Levodopa [Carbidopa-Levo 1 each PO BID 09/01/20 09/01/20 09/01/20 History ER 25-100 Tab] Celecoxib 100 mg [celeBREX 100 100 mg PO DAILY 09/01/20 09/01/20 09/01/20 History MG] Primidone 50 MG [Mysoline 50Mg] 50 mg PO BID 09/01/20 09/01/20 09/01/20 History Ropinirole HCl 0.25 mg PO BID 09/01/20 09/01/20 09/01/20 History Current Medications Discontinued Medications Generic Name Dose Route Start Last Admin Trade Name Freq PRN Reason Stop Dose Admin Amlodipine Besylate 2.5 mg 09/03/20 14:00 09/03/20 15:07 Norvasc 5 Mg PO 10/03/20 13:59 2.5 mg QAM SHALINI Administration Bisacodyl 10 mg 09/03/20 17:47 Dulcolax 5 Mg PO 10/03/20 17:46 QDP PRN Calcium Gluconate 1,000 mg 09/01/20 18:48 09/01/20 19:34 Calcium Gluconate 10% 1000 Mg IV 09/01/20 18:49 1,000 mg STAT ONE Administration Calcium Gluconate Confirm 09/01/20 19:26 Calcium Gluconate 10% 1000 Mg Administered 09/01/20 19:27 Dose 1,000 mg IV .STK-MED ONE Carbidopa/Levodopa 1 tab 09/04/20 10:00 09/04/20 09:16 Sinemet 25/100 Mg PO 10/04/20 09:59 1 tab BID SHALINI Administration Dextrose 50 ml 09/01/20 18:48 09/01/20 19:35 D50w 50 Ml Abboject IV 09/01/20 18:49 50 ml STAT ONE Administration Dextrose Confirm 09/01/20 19:29 D50w 50 Ml Abboject Administered 09/01/20 19:30 Dose 50 ml IV .STK-MED ONE Finasteride 5 mg 09/04/20 10:00 09/04/20 09:17 Proscar 5 Mg PO 10/04/20 09:59 5 mg DAILY SHALINI Administration Furosemide 40 mg 09/03/20 22:00 09/04/20 09:16 Lasix 40 Mg/4 Ml IV 10/03/20 21:59 40 mg BID SHALINI Administration Hydralazine HCl 25 mg 09/03/20 22:00 09/04/20 09:16 Apresoline 25 Mg Tablet PO 10/03/20 21:59 25 mg TID SHALINI Administration Sodium Chloride 1,000 mls @ 999 mls/hr 09/01/20 18:27 09/01/20 18:35 Sodium Chloride 0.9% 1000 Ml IV 09/01/20 19:27 999 mls/hr .Q1H1M STA Administration Sodium Chloride Confirm 09/01/20 18:34 Sodium Chloride 0.9% 1000 Ml Administered 09/01/20 18:35 Dose 1,000 mls @ ud .ROUTE .STK-MED ONE Sodium Chloride Confirm 09/01/20 20:20 Sodium Chloride 0.9% 1000 Ml Administered 09/01/20 20:21 Dose 1,000 mls @ ud .ROUTE .STK-MED ONE Sodium Chloride 1,000 mls @ 150 mls/hr 09/01/20 20:30 09/01/20 20:28 Sodium Chloride 0.9% 1000 Ml IV 10/01/20 20:29 150 mls/hr .Q6H40M SHALINI Administration Sodium Chloride Confirm 09/01/20 21:03 Sodium Chloride 0.9% 1000 Ml Administered 09/01/20 21:04 Dose 1,000 mls @ ud .ROUTE .STK-MED ONE Potassium Chloride/Sodium Chloride 1,000 mls @ 150 mls/hr 09/01/20 22:31 09/01/20 23:49 Sodium Chloride 0.9% W/ 20 Meq Kcl/Liter IV 10/01/20 22:30 Not Given .Q6H40M SHALINI Sodium Chloride 1,000 mls @ 50 mls/hr 09/01/20 23:30 09/02/20 20:37 Sodium Chloride 0.9% 1000 Ml IV 10/01/20 23:29 150 mls/hr .Q20H SHALINI Administration Lactated Ringer's 1,000 mls @ 50 mls/hr 09/03/20 08:00 09/03/20 06:57 Lactated Ringers IV 10/03/20 07:59 50 mls/hr .Q20H SHALINI Administration Dextrose/Sodium Chloride 1,000 mls @ 100 mls/hr 09/03/20 04:30 09/03/20 08:40 Dextrose 5%-Ns Iv Solution 1000 Ml IV 10/03/20 04:29 100 mls/hr .Q10H SHALINI Administration Lactated Ringer's Confirm 09/03/20 07:12 Lactated Ringers Administered 09/03/20 07:13 Dose 1,000 mls @ ud IV .STK-MED ONE Sodium Bicarbonate 150 meq/ 1,150 mls @ 70 mls/hr 09/03/20 18:00 09/04/20 09:34 Dextrose IV 10/03/20 17:59 70 ml/hr .[id number] SHALINI 70 mls/hr Administration Insulin Human Regular 5 unit 09/01/20 18:48 09/01/20 19:27 Humulin R IV 09/01/20 18:49 5 unit STAT ONE Administration Insulin Human Regular Confirm 09/01/20 19:28 Humulin R Administered 09/01/20 19:29 Dose 5 unit .ROUTE .STK-MED ONE Metoprolol Tartrate 25 mg 09/03/20 22:00 09/04/20 09:16 Lopressor 25mg Tab PO 10/03/20 21:59 25 mg BID SHALINI Administration Miscellaneous Medication 1 each 09/02/20 10:00 09/02/20 16:50 No Nsaids/Asa/Plavix MC 09/08/20 10:01 1 each DAILY SHALINI Administration Polyethylene Glycol/Electrolytes 4,000 ml 09/02/20 16:15 09/02/20 16:00 Golytely Solution 4000 Ml PO 09/02/20 16:16 4,000 ml ONCE@1400 ONE Administration Primidone 50 mg 09/04/20 10:00 09/04/20 09:16 Mysoline 50mg PO 10/04/20 09:59 50 mg BID SHALINI Administration Propofol Confirm 09/02/20 13:42 Diprivan 200 Mg/20 Ml Administered 09/02/20 13:43 Dose 200 mg IV .STK-MED ONE Propofol Confirm 09/03/20 07:12 Diprivan 200 Mg/20 Ml Administered 09/03/20 07:13 Dose 200 mg IV .STK-MED ONE Propofol Confirm 09/03/20 07:24 Diprivan 200 Mg/20 Ml Administered 09/03/20 07:25 Dose 200 mg IV .STK-MED ONE Ropinirole HCl 0.25 mg 09/04/20 10:00 09/04/20 09:15 Requip 0.5 Mg PO 10/04/20 09:59 0.25 mg BID SHALINI Administration Sodium Bicarbonate 50 meq 09/01/20 18:48 09/01/20 19:37 Sodium Bicarbonate 50 Meq/50 Ml Abboject IV 09/01/20 18:49 50 meq STAT ONE Administration Sodium Bicarbonate Confirm 09/01/20 19:29 Sodium Bicarbonate 50 Meq/50 Ml Abboject Administered 09/01/20 19:30 Dose 50 meq IV .STK-MED ONE Sodium Polystyrene Sulfonate 30 g 09/01/20 18:51 09/01/20 19:34 Kayexylate 15 Gm/60 Ml PO 09/01/20 18:52 30 g STAT ONE Administration Sodium Polystyrene Sulfonate Confirm 09/01/20 19:28 Kayexylate 15 Gm/60 Ml Administered 09/01/20 19:29 Dose 30 g .ROUTE .STK-MED ONE Tamsulosin HCl 0.4 mg 09/03/20 20:00 09/03/20 19:58 Flomax 0.4 Mg PO 10/03/20 19:59 0.4 mg 2000 SHALINI Administration Intake & Output (Last 24 hours) 09/01/20 09/02/20 09/03/20 09/04/20 11:59 11:59 11:59 11:59 Intake Total 8965 2333 5890 Output Total 0400 7104 Balance 0609 -4910 -045 Weight 75.4 kg 71.1 kg 70.1 kg Microbiology Results (Last 24 hours) 09/03/20 18:20 Urine, Indwelling Catheter Urine Culture - Preliminary NO GROWTH TO DATE 09/02/20 19:40 Clean Catch Midstream Urine Culture - Final NO GROWTH Laboratory Results (Last 24 hours) 09/04/20 09/04/20 09/04/20 04:33 04:33 04:33 WBC 8.6 RBC 2.43 L Hgb 7.4 L Hct 23.3 L MCV 95.9 MCH 30.5 MCHC 31.8 L RDW 14.3 H Plt Count 208 MPV 10.4 Gran % 76.8 H Eos # (Auto) 0.93 H Absolute Lymphs (auto) 0.58 L Absolute Monos (auto) 0.47 Lymphocytes % 6.7 L Monocytes % 5.5 Eosinophils % 10.8 H Basophils % 0.2 Absolute Granulocytes 6.61 Basophils # 0.02 Smear Path Review Sodium 135 L Potassium 3.6 D Chloride 106 Carbon Dioxide 17 L Anion Gap 15.8 H BUN 63 H Creatinine 7.02 H Estimated GFR 8.0 Glucose 105 Calcium 7.5 L Magnesium 1.6 Iron Ferritin Total Bilirubin 0.30 AST 13 L ALT 5 Alkaline Phosphatase 49 Serum Total Protein 5.4 L Albumin 2.9 L Vitamin B12 Folic Acid Urine Color Urine Appearance Urine pH Ur Specific [place] Urine Protein Urine Ketones Urine Blood Urine Nitrite Urine Bilirubin Urine Urobilinogen Ur Leukocyte Esterase Urine WBC (Auto) Urine RBC (Auto) U Epithel Cells (Auto) Urine Bacteria (Auto) Urine Culture Reflexed Urine Glucose SARS-CoV-2 (PCR) Slides for Path Review YES 09/03/20 09/03/20 09/03/20 19:10 18:20 03:31 WBC RBC Hgb Hct MCV MCH MCHC RDW Plt Count MPV Gran % Eos # (Auto) Absolute Lymphs (auto) Absolute Monos (auto) Lymphocytes % Monocytes % Eosinophils % Basophils % Absolute Granulocytes Basophils # Smear Path Review Sodium Potassium Chloride Carbon Dioxide Anion Gap BUN Creatinine Estimated GFR Glucose Calcium Magnesium Iron 57 Ferritin Total Bilirubin AST ALT Alkaline Phosphatase Serum Total Protein Albumin Vitamin B12 Folic Acid Urine Color RED Urine Appearance CLOUDY Urine pH 7.0 Ur Specific [place] 1.011 Urine Protein 100 Urine Ketones TRACE Urine Blood LARGE Urine Nitrite NEGATIVE Urine Bilirubin NEGATIVE Urine Urobilinogen NEGATIVE Ur Leukocyte Esterase NEGATIVE Urine WBC (Auto) 6-10 Urine RBC (Auto) >101 U Epithel Cells (Auto) NONE Urine Bacteria (Auto) FEW Urine Culture Reflexed ORDERED SEPARATELY Urine Glucose 50 SARS-CoV-2 (PCR) NEGATIVE Slides for Path Review 09/03/20 09/03/20 03:31 03:15 WBC 11.4 H RBC 2.89 L Hgb 8.8 L Hct 27.9 L MCV 96.5 MCH 30.4 MCHC 31.5 L RDW 14.7 H Plt Count 220 MPV 9.8 Gran % 87.7 H Eos # (Auto) 0.37 Absolute Lymphs (auto) 0.53 L Absolute Monos (auto) 0.48 Lymphocytes % 4.6 L Monocytes % 4.2 Eosinophils % 3.2 Basophils % 0.3 Absolute Granulocytes 10.00 H Basophils # 0.03 Smear Path Review Sodium Potassium Chloride Carbon Dioxide Anion Gap BUN Creatinine Estimated GFR Glucose Calcium Magnesium Iron Ferritin 720 H Total Bilirubin AST ALT Alkaline Phosphatase Serum Total Protein Albumin Vitamin B12 975 H Folic Acid 4.76 Urine Color Urine Appearance Urine pH Ur Specific [place] Urine Protein Urine Ketones Urine Blood Urine Nitrite Urine Bilirubin Urine Urobilinogen Ur Leukocyte Esterase Urine WBC (Auto) Urine RBC (Auto) U Epithel Cells (Auto) Urine Bacteria (Auto) Urine Culture Reflexed Urine Glucose SARS-CoV-2 (PCR) Slides for Path Review YES Orders (Last 24 hours) Category Date Time Status WALK [Walk With Assistance] TID Activity 09/03/20 13:23 Completed Miscellaneous Nursing Order ROUTINE Care 09/03/20 13:23 Completed House Regular Diet Diet 09/03/20 Dinner Completed NPO Diet 09/04/20 00:01 Completed Discharge Routine Discharge 09/04/20 Ordered Discharge/Telephone Order Routine Discharge 09/04/20 Active MINNIE w/Reflex Urgent Lab 09/03/20 18:20 Received Anti-DNA (DS) Ab Qn Urgent Lab 09/03/20 18:20 Received Antineutrophil Cytoplasmic Ab Urgent Lab 09/03/20 18:20 Received CBC W DIFF AM.LAB Lab 09/04/20 04:33 Completed CMP AM.LAB Lab 09/04/20 04:33 Completed CULTURE,URINE Urgent Lab 09/03/20 18:20 Results Complement C3 Urgent Lab 09/03/20 18:20 Received Complement C4 Urgent Lab 09/03/20 18:20 Received MAG [MAGNESIUM] AM.LAB Lab 09/04/20 04:33 Completed UA W/RFX UR CULTURE Urgent Lab 09/03/20 18:20 Completed Amlodipine Besylate 5 mg [Norvasc 5 mg] Med 09/03/20 14:00 Discontinued 2.5 mg PO QAM Bisacodyl 5 mg [Dulcolax 5 mg] Med 09/03/20 17:47 Discontinued 10 mg PO QDP PRN Carbidopa/Levodopa 25/100 mg [Sinemet 25/100 MG] Med 09/04/20 10:00 D iscontinued 1 tab PO BID D5w 1000 ml [Dextrose 5%/Water IV Soln. 1000 ML] 1,000 Med 09/03/20 18:00 Discontinued ml Sodium Bicarbonate 50Meq Vial* [Sodium Bicarbonate 50 MEQ/50 ML VIAL] 150 meq IV 70 mls/hr Finasteride 5 mg [Proscar 5 MG] Med 09/04/20 10:00 Discontinued 5 mg PO DAILY Furosemide 40 mg/4 ml [Lasix 40 MG/4 ML] Med 09/03/20 22:00 Discontinued 40 mg IV BID HydrALAzine HCL 25 MG TAB [Apresoline 25 MG TABLET Med 09/03/20 22:00 Discontinued *] 25 mg PO TID Metoprolol Tartrate 25 mg [Lopressor 25MG Tab] Med 09/03/20 22:00 Discontinued 25 mg PO BID Primidone 50 MG [Mysoline 50Mg] Med 09/04/20 10:00 Discontinued 50 mg PO BID Ropinirole HCl 0.5 mg [Requip 0.5 MG] Med 09/04/20 10:00 Discontinued 0.25 mg PO BID Tamsulosin HCl 0.4 mg [Flomax 0.4 MG] Med 09/03/20 20:00 Discontinued 0.4 mg PO 2000 Patient Care Notes (Last 24 hours) 09/04/20 10:51 Nursing Note by Domenica Tavreas Discharged at this time via ambulance. Initialized on 09/04/20 10:51 - END OF NOTE 09/04/20 09:32 Nursing Note by Domenica Taveras Called [facility] and report given to [facility] regarding pt's transfer. Initialized on 09/04/20 09:32 - END OF NOTE 09/04/20 09:08 Nursing Note by Domenica Taveras Attempted to Call Yaquelin, pt's spouse, left message to return call. Called pt's daughter, Melanie, and made her aware Dr Araya is transferring pt to [facility]. Initialized on 09/04/20 09:08 - END OF NOTE 09/04/20 09:02 SBAR Note by Domenica Taveras SITUATION I am calling about SHANDA JOHNSON the patient's code status is Full Code The problem I am calling about is: Dr Araya called for update on pt; new orders received. ASSESSMENT RECOMMENDATION Physician notified at [id number] New Orders received: Vital Signs (Last 4 hours) Temp Pulse Resp BP Pulse Ox 09/04/20 08:00 16 09/04/20 07:16 97.9 F 65 12 159/60 99 Diagnois, Code Status Date of Arrival on Unit 09/01/20 Admitted From Emergency Dept Diagnosis c/o diarrhea, low hemoglobin Resucitation Status Full Code Intake and Output 24 Hours 09/04/20 09/05/20 06:59 06:59 Intake Total 2804 Output Total 4050 650 Balance -1246 -650 Weight 70.1 kg Intake: Intake, Oral Amount 1160 Intake, IV Amount 1644 Output: Output, Urine Amount 1500 Output, Chaves: 2550 650 Other: Number of Bowel Movements 0 Physical Assessment Anxiety Level None,at ease,Awake,Calm,Low Mental Status Alert Patient Orientation Person,Place,Time Coma Scale Total 15 Breath Sounds [Anterior/ Clear,Diminished Posterior Bilateral Throughout ] Breath Sounds [Anterior/ Clear Posterior Bilateral Throughout ] Cardiac Rhythm-[facility] Sinus Bradycardia Change from Baseline: No Bowel Sounds [All Quadrants] Active Abdomen Description Soft,Large,Round,Distended,Non-Tender Date Chaves Cath Inserted 09/02/2020 Urine Appearance Cloudy Urine Color Ortiz Skin Color [Bilateral] Pale Skin Color Pale Skin Temperature [Bilateral] Warm Skin Temperature Warm Pain Scale (Last 24 Hours) Pain Intensity 0 Pain Intensity 0 Pain Intensity 0 Pain Intensity 0 Pain Intensity 0 Pain Intensity 0 PAST MEDICAL HISTORY Neurological History Other ENT History No Pertinent History Endocrine Medical History No Pertinent History Respiratory History No Pertinent History Cardiac History No Pertinent History GI Medical History No Pertinent History History No Pertinent History Pyscho-Social History No Pertinent History Communicable Disease No Pertinent History Comment parkinsons, enlarged prostate Diet Order (Last 24 Hours) 09/04/20 00:01 NPO Lab Results (Last 24 Hours) 09/04/20 09/04/20 09/04/20 Range/Units 04:33 04:33 04:33 WBC 8.6 (4.0-10.5) K/mm3 RBC 2.43 L (4.1-5.6) M/mm3 Hgb 7.4 L (12.5-18.0) gm/dl Hct 23.3 L (42-50) % MCV 95.9 (78-100) fl MCH 30.5 (26-32) pg MCHC 31.8 L (32-36) g/dl RDW 14.3 H (11.5-14.0) % Plt Count 208 (150-450) K/mm3 MPV 10.4 (7.5-11.0) fl Gran % 76.8 H (36.0-66.0) % Eos # (Auto) 0.93 H (0-0.5) Absolute Lymphs (auto) 0.58 L (1.0-4.6) Absolute Monos (auto) 0.47 (0.0-1.3) Lymphocytes % 6.7 L (24.0-44.0) % Monocytes % 5.5 (0.0-12.0) % Eosinophils % 10.8 H (0.00-5.0) % Basophils % 0.2 (0.0-0.4) % Absolute Granulocytes 6.61 (1.4-6.9) Basophils # 0.02 (0-0.4) Smear Path Review Sodium 135 L (137-145) mmol/L Potassium 3.6 D (3.5-5.1) mmol/L Chloride 106 (98-107) mmol/L Carbon Dioxide 17 L (22-30) mmol/L Anion Gap 15.8 H (5-15) MEQ/L BUN 63 H (9-20) mg/dL Creatinine 7.02 H (0.66-1.25) mg/dL Estimated GFR 8.0 ML/MIN Glucose 105 (74-106) mg/dL Calcium 7.5 L (8.4-10.2) mg/dL Magnesium 1.6 (1.6-2.3) mg/dL Iron (49-181) ug/dL Ferritin (17.9-464) ng/mL Total Bilirubin 0.30 (0.2-1.3) mg/dL AST 13 L (17-59) U/L ALT 5 (0-50) U/L Alkaline Phosphatase 49 (38-126) U/L Serum Total Protein 5.4 L (6.3-8.2) g/dL Albumin 2.9 L (3.5-5.0) g/dL Vitamin B12 (239-931) pg/mL Folic Acid (2.76 - >20) ng/mL Urine Color (YELLOW) Urine Appearance (CLEAR) Urine pH (5-6) Ur Specific [place] (1.005-1.025) Urine Protein (Negative) Urine Ketones (NEGATIVE) Urine Blood (0-5) Angel/ul Urine Nitrite (NEGATIVE) Urine Bilirubin (NEGATIVE) Urine Urobilinogen (0-1) mg/dL Ur Leukocyte Esterase (NEGATIVE) Urine WBC (Auto) (0-5) /HPF Urine RBC (Auto) (0-2) /HPF U Epithel Cells (Auto) (FEW) /HPF Urine Bacteria (Auto) (NEGATIVE) /HPF Urine Culture Reflexed (NO) Urine Glucose (NEGATIVE) mg/dL SARS-CoV-2 (PCR) (NEGATIVE) Slides for Path Review YES 09/03/20 09/03/20 09/03/20 Range/Units 19:10 18:20 03:31 WBC (4.0-10.5) K/mm3 RBC (4.1-5.6) M/mm3 Hgb (12.5-18.0) gm/dl Hct (42-50) % MCV (78-100) fl MCH (26-32) pg MCHC (32-36) g/dl RDW (11.5-14.0) % Plt Count (150-450) K/mm3 MPV (7.5-11.0) fl Gran % (36.0-66.0) % Eos # (Auto) (0-0.5) Absolute Lymphs (auto) (1.0-4.6) Absolute Monos (auto) (0.0-1.3) Lymphocytes % (24.0-44.0) % Monocytes % (0.0-12.0) % Eosinophils % (0.00-5.0) % Basophils % (0.0-0.4) % Absolute Granulocytes (1.4-6.9) Basophils # (0-0.4) Smear Path Review Sodium (137-145) mmol/L Potassium (3.5-5.1) mmol/L Chloride (98-107) mmol/L Carbon Dioxide (22-30) mmol/L Anion Gap (5-15) MEQ/L BUN (9-20) mg/dL Creatinine (0.66-1.25) mg/dL Estimated GFR ML/MIN Glucose (74-106) mg/dL Calcium (8.4-10.2) mg/dL Magnesium (1.6-2.3) mg/dL Iron 57 (49-181) ug/dL Ferritin (17.9-464) ng/mL Total Bilirubin (0.2-1.3) mg/dL AST (17-59) U/L ALT (0-50) U/L Alkaline Phosphatase (38-126) U/L Serum Total Protein (6.3-8.2) g/dL Albumin (3.5-5.0) g/dL Vitamin B12 (239-931) pg/mL Folic Acid (2.76 - >20) ng/mL Urine Color RED (YELLOW) Urine Appearance CLOUDY (CLEAR) Urine pH 7.0 (5-6) Ur Specific [place] 1.011 (1.005-1.025) Urine Protein 100 (Negative) Urine Ketones TRACE (NEGATIVE) Urine Blood LARGE (0-5) Angel/ul Urine Nitrite NEGATIVE (NEGATIVE) Urine Bilirubin NEGATIVE (NEGATIVE) Urine Urobilinogen NEGATIVE (0-1) mg/dL Ur Leukocyte Esterase NEGATIVE (NEGATIVE) Urine WBC (Auto) 6-10 (0-5) /HPF Urine RBC (Auto) >101 (0-2) /HPF U Epithel Cells (Auto) NONE (FEW) /HPF Urine Bacteria (Auto) FEW (NEGATIVE) /HPF Urine Culture Reflexed ORDERED SEPARATELY (NO) Urine Glucose 50 (NEGATIVE) mg/dL SARS-CoV-2 (PCR) NEGATIVE (NEGATIVE) Slides for Path Review 09/03/20 09/03/20 Range/Units 03:31 03:15 WBC 11.4 H (4.0-10.5) K/mm3 RBC 2.89 L (4.1-5.6) M/mm3 Hgb 8.8 L (12.5-18.0) gm/dl Hct 27.9 L (42-50) % MCV 96.5 (78-100) fl MCH 30.4 (26-32) pg MCHC 31.5 L (32-36) g/dl RDW 14.7 H (11.5-14.0) % Plt Count 220 (150-450) K/mm3 MPV 9.8 (7.5-11.0) fl Gran % 87.7 H (36.0-66.0) % Eos # (Auto) 0.37 (0-0.5) Absolute Lymphs (auto) 0.53 L (1.0-4.6) Absolute Monos (auto) 0.48 (0.0-1.3) Lymphocytes % 4.6 L (24.0-44.0) % Monocytes % 4.2 (0.0-12.0) % Eosinophils % 3.2 (0.00-5.0) % Basophils % 0.3 (0.0-0.4) % Absolute Granulocytes 10.00 H (1.4-6.9) Basophils # 0.03 (0-0.4) Smear Path Review Sodium (137-145) mmol/L Potassium (3.5-5.1) mmol/L Chloride (98-107) mmol/L Carbon Dioxide (22-30) mmol/L Anion Gap (5-15) MEQ/L BUN (9-20) mg/dL Creatinine (0.66-1.25) mg/dL Estimated GFR ML/MIN Glucose (74-106) mg/dL Calcium (8.4-10.2) mg/dL Magnesium (1.6-2.3) mg/dL Iron (49-181) ug/dL Ferritin 720 H (17.9-464) ng/mL Total Bilirubin (0.2-1.3) mg/dL AST (17-59) U/L ALT (0-50) U/L Alkaline Phosphatase (38-126) U/L Serum Total Protein (6.3-8.2) g/dL Albumin (3.5-5.0) g/dL Vitamin B12 975 H (239-931) pg/mL Folic Acid 4.76 (2.76 - >20) ng/mL Urine Color (YELLOW) Urine Appearance (CLEAR) Urine pH (5-6) Ur Specific [place] (1.005-1.025) Urine Protein (Negative) Urine Ketones (NEGATIVE) Urine Blood (0-5) Angel/ul Urine Nitrite (NEGATIVE) Urine Bilirubin (NEGATIVE) Urine Urobilinogen (0-1) mg/dL Ur Leukocyte Esterase (NEGATIVE) Urine WBC (Auto) (0-5) /HPF Urine RBC (Auto) (0-2) /HPF U Epithel Cells (Auto) (FEW) /HPF Urine Bacteria (Auto) (NEGATIVE) /HPF Urine Culture Reflexed (NO) Urine Glucose (NEGATIVE) mg/dL SARS-CoV-2 (PCR) (NEGATIVE) Slides for Path Review YES Microbiology Results (Last 24 Hours) 09/03/20 18:20 Urine Culture - Pending Urine, Indwelling Catheter Orders (Last 24 Hours) Category Date Time Status WALK [Walk With Assistance] TID Activity 09/03/20 13:23 Active Miscellaneous Nursing Order ROUTINE Care 09/03/20 13:23 Active NPO Diet 09/04/20 00:01 Active ECHO W/2D AND DOPPLER [US] Routine Exams 09/04/20 08:00 Ordered KIDNEY [US] Routine Exams 09/04/20 08:00 Ordered MINNIE w/Reflex Urgent Lab 09/03/20 18:20 Received Anti-DNA (DS) Ab Qn Urgent Lab 09/03/20 18:20 Received Antineutrophil Cytoplasmic Ab Urgent Lab 09/03/20 18:20 Received CBC AM.LAB Lab 09/05/20 04:00 Ordered CBC AM.LAB Lab 09/06/20 04:00 Ordered CBC AM.LAB Lab 09/07/20 04:00 Ordered CBC AM.LAB Lab 09/08/20 04:00 Ordered CBC AM.LAB Lab 09/09/20 04:00 Ordered CMP AM.LAB Lab 09/05/20 04:00 Ordered CMP AM.LAB Lab 09/06/20 04:00 Ordered CMP AM.LAB Lab 09/07/20 04:00 Ordered CMP AM.LAB Lab 09/08/20 04:00 Ordered CMP AM.LAB Lab 09/09/20 04:00 Ordered CULTURE,URINE Urgent Lab 09/03/20 18:20 Received Complement C3 Urgent Lab 09/03/20 18:20 Received Complement C4 Urgent Lab 09/03/20 18:20 Received MAG [MAGNESIUM] AM.LAB Lab 09/05/20 04:00 Ordered MAG [MAGNESIUM] AM.LAB Lab 09/06/20 04:00 Ordered MAG [MAGNESIUM] AM.LAB Lab 09/07/20 04:00 Ordered MAG [MAGNESIUM] AM.LAB Lab 09/08/20 04:00 Ordered MAG [MAGNESIUM] AM.LAB Lab 09/09/20 04:00 Ordered Bisacodyl 5 mg [Dulcolax 5 mg] Med 09/03/20 17:47 Active 10 mg PO QDP PRN Carbidopa/Levodopa 25/100 mg [Sinemet 25/100 MG] Med 09/04/20 10:00 Ordered 1 tab PO BID D5w 1000 ml [Dextrose 5%/Water IV Soln. 1000 ML] 1,000 Med 09/03/20 18:00 Active ml Sodium Bicarbonate 50Meq Vial* [Sodium Bicarbonate 50 MEQ/50 ML VIAL] 150 meq IV 70 mls/hr Finasteride 5 mg [Proscar 5 MG] Med 09/04/20 10:00 Active 5 mg PO DAILY Furosemide 40 mg/4 ml [Lasix 40 MG/4 ML] Med 09/03/20 22:00 Active 40 mg IV BID HydrALAzine HCL 25 MG TAB [Apresoline 25 MG TABLET Med 09/03/20 22:00 Active *] 25 mg PO TID Metoprolol Tartrate 25 mg [Lopressor 25MG Tab] Med 09/03/20 22:00 Active 25 mg PO BID Primidone 50 MG [Mysoline 50Mg] Med 09/04/20 10:00 Ordered 50 mg PO BID Ropinirole HCl 0.5 mg [Requip 0.5 MG] Med 09/04/20 10:00 Ordered 0.25 mg PO BID Tamsulosin HCl 0.4 mg [Flomax 0.4 MG] Med 09/03/20 20:00 Active 0.4 mg PO 2000 Active Visit Medications Generic Name Dose Route Start Last Admin Trade Name Freq PRN Reason Stop Dose Admin Bisacodyl 10 mg 09/03/20 17:47 Dulcolax 5 Mg PO 10/03/20 17:46 QDP PRN Carbidopa/Levodopa 1 tab 09/04/20 10:00 Sinemet 25/100 Mg PO 10/04/20 09:59 BID SHALINI Finasteride 5 mg 09/04/20 10:00 Proscar 5 Mg PO 10/04/20 09:59 DAILY SHALINI Furosemide 40 mg 09/03/20 22:00 09/03/20 21:01 Lasix 40 Mg/4 Ml IV 10/03/20 21:59 40 mg BID SHALINI Administration Hydralazine HCl 25 mg 09/03/20 22:00 09/03/20 21:01 Apresoline 25 Mg Tablet PO 10/03/20 21:59 25 mg TID SHALINI Administration Sodium Bicarbonate 150 meq/ 1,150 mls @ 70 mls/hr 09/03/20 18:00 09/03/20 18:10 Dextrose IV 10/03/20 17:59 70 ml/hr .[id number] SHALINI 70 mls/hr Administration Metoprolol Tartrate 25 mg 09/03/20 22:00 09/03/20 21:01 Lopressor 25mg Tab PO 10/03/20 21:59 25 mg BID SHALINI Administration Miscellaneous Medication 1 each 09/02/20 10:00 09/02/20 16:50 No Nsaids/Asa/Plavix MC 09/08/20 10:01 1 each DAILY SHALINI Administration Tamsulosin HCl 0.4 mg 09/03/20 20:00 09/03/20 19:58 Flomax 0.4 Mg PO 10/03/20 19:59 0.4 mg 2000 SHALINI Administration Home Medications Medication Instructions Recorded Confirmed Last Taken Type Carbidopa/Levodopa [Carbidopa-Levo 1 each PO BID 09/01/20 09/01/20 09/01/20 History ER 25-100 Tab] Celecoxib 100 mg [celeBREX 100 100 mg PO DAILY 09/01/20 09/01/20 09/01/20 History MG] Primidone 50 MG [Mysoline 50Mg] 50 mg PO BID 09/01/20 09/01/20 09/01/20 History Ropinirole HCl 0.25 mg PO BID 09/01/20 09/01/20 09/01/20 History Initialized on 09/04/20 09:02 - END OF NOTE 09/03/20 13:19 Nursing Note by Jody Calhoun rounded with dr. araya. new order obtained for cbc and cmp in am, norvasc 2.5mg po daily, irrigate chaves cath to see if it will clear, and walk pt. Initialized on 09/03/20 13:19 - END OF NOTE - Vitals & Intake/Output Vital Signs: Vital Signs Temperature 97.9 F 09/04/20 07:16 Pulse Rate 65 09/04/20 07:16 Respiratory Rate 16 09/04/20 08:00 Blood Pressure 159/60 09/04/20 07:16 O2 Sat by Pulse Oximetry 99 09/04/20 07:16 Intake & Output: Intake & Output 09/01/20 09/02/20 09/03/20 09/04/20 11:59 11:59 11:59 11:59 Intake Total 9352 1169 7451 Output Total 0896 2681 Balance 5574 -6112 -678 Weight 75.4 kg 71.1 kg 70.1 kg - Lab Result Diagrams: 09/04/20 04:33 09/04/20 04:33 Lab Results-Last 24 Hrs: Lab Results-Last 24 Hours 09/03/20 09/03/20 09/03/20 Range/Units 03:15 03:31 03:31 WBC 11.4 H (4.0-10.5) K/mm3 RBC 2.89 L (4.1-5.6) M/mm3 Hgb 8.8 L (12.5-18.0) gm/dl Hct 27.9 L (42-50) % MCV 96.5 (78-100) fl MCH 30.4 (26-32) pg MCHC 31.5 L (32-36) g/dl RDW 14.7 H (11.5-14.0) % Plt Count 220 (150-450) K/mm3 MPV 9.8 (7.5-11.0) fl Gran % 87.7 H (36.0-66.0) % Eos # (Auto) 0.37 (0-0.5) Absolute Lymphs (auto) 0.53 L (1.0-4.6) Absolute Monos (auto) 0.48 (0.0-1.3) Lymphocytes % 4.6 L (24.0-44.0) % Monocytes % 4.2 (0.0-12.0) % Eosinophils % 3.2 (0.00-5.0) % Basophils % 0.3 (0.0-0.4) % Absolute Granulocytes 10.00 H (1.4-6.9) Basophils # 0.03 (0-0.4) Smear Path Review Sodium (137-145) mmol/L Potassium (3.5-5.1) mmol/L Chloride (98-107) mmol/L Carbon Dioxide (22-30) mmol/L Anion Gap (5-15) MEQ/L BUN (9-20) mg/dL Creatinine (0.66-1.25) mg/dL Estimated GFR ML/MIN Glucose (74-106) mg/dL Calcium (8.4-10.2) mg/dL Magnesium (1.6-2.3) mg/dL Iron 57 (49-181) ug/dL Ferritin 720 H (17.9-464) ng/mL Total Bilirubin (0.2-1.3) mg/dL AST (17-59) U/L ALT (0-50) U/L Alkaline Phosphatase (38-126) U/L Serum Total Protein (6.3-8.2) g/dL Albumin (3.5-5.0) g/dL Vitamin B12 975 H (239-931) pg/mL Folic Acid 4.76 (2.76 - >20) ng/mL Urine Color (YELLOW) Urine Appearance (CLEAR) Urine pH (5-6) Ur Specific [place] (1.005-1.025) Urine Protein (Negative) Urine Ketones (NEGATIVE) Urine Blood (0-5) Angel/ul Urine Nitrite (NEGATIVE) Urine Bilirubin (NEGATIVE) Urine Urobilinogen (0-1) mg/dL Ur Leukocyte Esterase (NEGATIVE) Urine WBC (Auto) (0-5) /HPF Urine RBC (Auto) (0-2) /HPF U Epithel Cells (Auto) (FEW) /HPF Urine Bacteria (Auto) (NEGATIVE) /HPF Urine Culture Reflexed (NO) Urine Glucose (NEGATIVE) mg/dL SARS-CoV-2 (PCR) (NEGATIVE) Slides for Path Review YES 09/03/20 09/03/20 09/04/20 Range/Units 18:20 19:10 04:33 WBC 8.6 (4.0-10.5) K/mm3 RBC 2.43 L (4.1-5.6) M/mm3 Hgb 7.4 L (12.5-18.0) gm/dl Hct 23.3 L (42-50) % MCV 95.9 (78-100) fl MCH 30.5 (26-32) pg MCHC 31.8 L (32-36) g/dl RDW 14.3 H (11.5-14.0) % Plt Count 208 (150-450) K/mm3 MPV 10.4 (7.5-11.0) fl Gran % 76.8 H (36.0-66.0) % Eos # (Auto) 0.93 H (0-0.5) Absolute Lymphs (auto) 0.58 L (1.0-4.6) Absolute Monos (auto) 0.47 (0.0-1.3) Lymphocytes % 6.7 L (24.0-44.0) % Monocytes % 5.5 (0.0-12.0) % Eosinophils % 10.8 H (0.00-5.0) % Basophils % 0.2 (0.0-0.4) % Absolute Granulocytes 6.61 (1.4-6.9) Basophils # 0.02 (0-0.4) Smear Path Review Sodium (137-145) mmol/L Potassium (3.5-5.1) mmol/L Chloride (98-107) mmol/L Carbon Dioxide (22-30) mmol/L Anion Gap (5-15) MEQ/L BUN (9-20) mg/dL Creatinine (0.66-1.25) mg/dL Estimated GFR ML/MIN Glucose (74-106) mg/dL Calcium (8.4-10.2) mg/dL Magnesium (1.6-2.3) mg/dL Iron (49-181) ug/dL Ferritin (17.9-464) ng/mL Total Bilirubin (0.2-1.3) mg/dL AST (17-59) U/L ALT (0-50) U/L Alkaline Phosphatase (38-126) U/L Serum Total Protein (6.3-8.2) g/dL Albumin (3.5-5.0) g/dL Vitamin B12 (239-931) pg/mL Folic Acid (2.76 - >20) ng/mL Urine Color RED (YELLOW) Urine Appearance CLOUDY (CLEAR) Urine pH 7.0 (5-6) Ur Specific [place] 1.011 (1.005-1.025) Urine Protein 100 (Negative) Urine Ketones TRACE (NEGATIVE) Urine Blood LARGE (0-5) Angel/ul Urine Nitrite NEGATIVE (NEGATIVE) Urine Bilirubin NEGATIVE (NEGATIVE) Urine Urobilinogen NEGATIVE (0-1) mg/dL Ur Leukocyte Esterase NEGATIVE (NEGATIVE) Urine WBC (Auto) 6-10 (0-5) /HPF Urine RBC (Auto) >101 (0-2) /HPF U Epithel Cells (Auto) NONE (FEW) /HPF Urine Bacteria (Auto) FEW (NEGATIVE) /HPF Urine Culture Reflexed ORDERED SEPARATELY (NO) Urine Glucose 50 (NEGATIVE) mg/dL SARS-CoV-2 (PCR) NEGATIVE (NEGATIVE) Slides for Path Review YES 09/04/20 09/04/20 Range/Units 04:33 04:33 WBC (4.0-10.5) K/mm3 RBC (4.1-5.6) M/mm3 Hgb (12.5-18.0) gm/dl Hct (42-50) % MCV (78-100) fl MCH (26-32) pg MCHC (32-36) g/dl RDW (11.5-14.0) % Plt Count (150-450) K/mm3 MPV (7.5-11.0) fl Gran % (36.0-66.0) % Eos # (Auto) (0-0.5) Absolute Lymphs (auto) (1.0-4.6) Absolute Monos (auto) (0.0-1.3) Lymphocytes % (24.0-44.0) % Monocytes % (0.0-12.0) % Eosinophils % (0.00-5.0) % Basophils % (0.0-0.4) % Absolute Granulocytes (1.4-6.9) Basophils # (0-0.4) Smear Path Review Sodium 135 L (137-145) mmol/L Potassium 3.6 D (3.5-5.1) mmol/L Chloride 106 (98-107) mmol/L Carbon Dioxide 17 L (22-30) mmol/L Anion Gap 15.8 H (5-15) MEQ/L BUN 63 H (9-20) mg/dL Creatinine 7.02 H (0.66-1.25) mg/dL Estimated GFR 8.0 ML/MIN Glucose 105 (74-106) mg/dL Calcium 7.5 L (8.4-10.2) mg/dL Magnesium 1.6 (1.6-2.3) mg/dL Iron (49-181) ug/dL Ferritin (17.9-464) ng/mL Total Bilirubin 0.30 (0.2-1.3) mg/dL AST 13 L (17-59) U/L ALT 5 (0-50) U/L Alkaline Phosphatase 49 (38-126) U/L Serum Total Protein 5.4 L (6.3-8.2) g/dL Albumin 2.9 L (3.5-5.0) g/dL Vitamin B12 (239-931) pg/mL Folic Acid (2.76 - >20) ng/mL Urine Color (YELLOW) Urine Appearance (CLEAR) Urine pH (5-6) Ur Specific [place] (1.005-1.025) Urine Protein (Negative) Urine Ketones (NEGATIVE) Urine Blood (0-5) Angel/ul Urine Nitrite (NEGATIVE) Urine Bilirubin (NEGATIVE) Urine Urobilinogen (0-1) mg/dL Ur Leukocyte Esterase (NEGATIVE) Urine WBC (Auto) (0-5) /HPF Urine RBC (Auto) (0-2) /HPF U Epithel Cells (Auto) (FEW) /HPF Urine Bacteria (Auto) (NEGATIVE) /HPF Urine Culture Reflexed (NO) Urine Glucose (NEGATIVE) mg/dL SARS-CoV-2 (PCR) (NEGATIVE) Slides for Path Review Micro Results-Entire Visit: Microbiology 09/03/20 18:20 Urine Culture - Preliminary Urine, Indwelling Catheter NO GROWTH TO DATE 09/02/20 19:40 Urine Culture - Final Clean Catch Midstream NO GROWTH 09/01/20 19:11 Blood Culture - Preliminary Blood NO GROWTH TO DATE 09/01/20 18:34 Blood Culture - Preliminary Blood NO GROWTH TO DATE - Procedures and Test Procedures and Tests throughout Hospitalization: Therapy Orders & Screens 09/03/20 10:00 PT Eval & Treat ( Order) ONCE Reason for Eval:: increased weakness; decreased functional mobility Diagnosis: c/o diarrhea, low hemoglobin Discharge Exam General Appearance: no apparent distress, alert Neurologic Exam: alert, oriented x 3, cooperative, normal mood/affect, nml cerebellar function, sensation nml, No motor deficits Eye Exam: PERRL, EOMI, eyes nml inspection Ears, Nose, Throat Exam: normal ENT inspection, pharynx normal, moist mucous membranes Neck Exam: normal inspection, non-tender, supple, full range of motion Respiratory Exam: normal breath sounds, lungs clear, No respiratory distress Cardiovascular Exam: regular rate/rhythm, normal heart sounds Gastrointestinal/Abdomen Exam: soft, No tenderness, No mass Male Genitalia Exam: deferred Rectal Exam: deferred Back Exam: normal inspection, normal range of motion, No CVA tenderness, No vertebral tenderness Extremity Exam: normal inspection, normal range of motion Skin Exam: normal color, warm, dry Final Diagnosis/Problem List - Final Discharge Diagnosis/Problem (1) Acute on chronic renal failure Status: Acute Priority: High Assessment & Plan: Chief Complaint Diagnosis c/o diarrhea, low hemoglobin Allergies Allergy/AdvReac Type Severity Reaction Status Date / Time No Known Drug Allergies Allergy Unverified 09/01/20 18:16 Vital Signs (Last 24 hours) Temp Pulse Resp BP Pulse Ox 09/04/20 08:00 16 09/04/20 07:16 97.9 F 65 12 159/60 99 09/04/20 04:00 98.8 F 62 16 161/73 100 09/04/20 00:00 16 09/03/20 23:46 98.8 F 59 L 16 100/54 100 09/03/20 20:00 17 09/03/20 19:50 98.8 F 66 17 156/73 100 09/03/20 17:46 97.9 F 69 19 142/63 100 09/03/20 16:00 71 09/03/20 14:00 97.7 F 64 16 162/76 100 09/03/20 12:00 70 Home Medications Medication Instructions Recorded Confirmed Last Taken Type Carbidopa/Levodopa [Carbidopa-Levo 1 each PO BID 09/01/20 09/01/20 09/01/20 History ER 25-100 Tab] Celecoxib 100 mg [celeBREX 100 100 mg PO DAILY 09/01/20 09/01/20 09/01/20 History MG] Primidone 50 MG [Mysoline 50Mg] 50 mg PO BID 09/01/20 09/01/20 09/01/20 History Ropinirole HCl 0.25 mg PO BID 09/01/20 09/01/20 09/01/20 History Current Medications Discontinued Medications Generic Name Dose Route Start Last Admin Trade Name Freq PRN Reason Stop Dose Admin Amlodipine Besylate 2.5 mg 09/03/20 14:00 09/03/20 15:07 Norvasc 5 Mg PO 10/03/20 13:59 2.5 mg QAM SHALINI Administration Bisacodyl 10 mg 09/03/20 17:47 Dulcolax 5 Mg PO 10/03/20 17:46 QDP PRN Calcium Gluconate 1,000 mg 09/01/20 18:48 09/01/20 19:34 Calcium Gluconate 10% 1000 Mg IV 09/01/20 18:49 1,000 mg STAT ONE Administration Calcium Gluconate Confirm 09/01/20 19:26 Calcium Gluconate 10% 1000 Mg Administered 09/01/20 19:27 Dose 1,000 mg IV .STK-MED ONE Carbidopa/Levodopa 1 tab 09/04/20 10:00 09/04/20 09:16 Sinemet 25/100 Mg PO 10/04/20 09:59 1 tab BID SHALINI Administration Dextrose 50 ml 09/01/20 18:48 09/01/20 19:35 D50w 50 Ml Abboject IV 09/01/20 18:49 50 ml STAT ONE Administration Dextrose Confirm 09/01/20 19:29 D50w 50 Ml Abboject Administered 09/01/20 19:30 Dose 50 ml IV .STK-MED ONE Finasteride 5 mg 09/04/20 10:00 09/04/20 09:17 Proscar 5 Mg PO 10/04/20 09:59 5 mg DAILY SHALINI Administration Furosemide 40 mg 09/03/20 22:00 09/04/20 09:16 Lasix 40 Mg/4 Ml IV 10/03/20 21:59 40 mg BID SHALINI Administration Hydralazine HCl 25 mg 09/03/20 22:00 09/04/20 09:16 Apresoline 25 Mg Tablet PO 10/03/20 21:59 25 mg TID SHALINI Administration Sodium Chloride 1,000 mls @ 999 mls/hr 09/01/20 18:27 09/01/20 18:35 Sodium Chloride 0.9% 1000 Ml IV 09/01/20 19:27 999 mls/hr .Q1H1M STA Administration Sodium Chloride Confirm 09/01/20 18:34 Sodium Chloride 0.9% 1000 Ml Administered 09/01/20 18:35 Dose 1,000 mls @ ud .ROUTE .STK-MED ONE Sodium Chloride Confirm 09/01/20 20:20 Sodium Chloride 0.9% 1000 Ml Administered 09/01/20 20:21 Dose 1,000 mls @ ud .ROUTE .STK-MED ONE Sodium Chloride 1,000 mls @ 150 mls/hr 09/01/20 20:30 09/01/20 20:28 Sodium Chloride 0.9% 1000 Ml IV 10/01/20 20:29 150 mls/hr .Q6H40M SHALINI Administration Sodium Chloride Confirm 09/01/20 21:03 Sodium Chloride 0.9% 1000 Ml Administered 09/01/20 21:04 Dose 1,000 mls @ ud .ROUTE .STK-MED ONE Potassium Chloride/Sodium Chloride 1,000 mls @ 150 mls/hr 09/01/20 22:31 09/01/20 23:49 Sodium Chloride 0.9% W/ 20 Meq Kcl/Liter IV 10/01/20 22:30 Not Given .Q6H40M SHALINI Sodium Chloride 1,000 mls @ 50 mls/hr 09/01/20 23:30 09/02/20 20:37 Sodium Chloride 0.9% 1000 Ml IV 10/01/20 23:29 150 mls/hr .Q20H SHALINI Administration Lactated Ringer's 1,000 mls @ 50 mls/hr 09/03/20 08:00 09/03/20 06:57 Lactated Ringers IV 10/03/20 07:59 50 mls/hr .Q20H SHALINI Administration Dextrose/Sodium Chloride 1,000 mls @ 100 mls/hr 09/03/20 04:30 09/03/20 08:40 Dextrose 5%-Ns Iv Solution 1000 Ml IV 10/03/20 04:29 100 mls/hr .Q10H SHALINI Administration Lactated Ringer's Confirm 09/03/20 07:12 Lactated Ringers Administered 09/03/20 07:13 Dose 1,000 mls @ ud IV .STK-MED ONE Sodium Bicarbonate 150 meq/ 1,150 mls @ 70 mls/hr 09/03/20 18:00 09/04/20 09:34 Dextrose IV 10/03/20 17:59 70 ml/hr .[id number] SHALINI 70 mls/hr Administration Insulin Human Regular 5 unit 09/01/20 18:48 09/01/20 19:27 Humulin R IV 09/01/20 18:49 5 unit STAT ONE Administration Insulin Human Regular Confirm 09/01/20 19:28 Humulin R Administered 09/01/20 19:29 Dose 5 unit .ROUTE .STK-MED ONE Metoprolol Tartrate 25 mg 09/03/20 22:00 09/04/20 09:16 Lopressor 25mg Tab PO 10/03/20 21:59 25 mg BID SHALINI Administration Miscellaneous Medication 1 each 09/02/20 10:00 09/02/20 16:50 No Nsaids/Asa/Plavix MC 09/08/20 10:01 1 each DAILY SHALINI Administration Polyethylene Glycol/Electrolytes 4,000 ml 09/02/20 16:15 09/02/20 16:00 Golytely Solution 4000 Ml PO 09/02/20 16:16 4,000 ml ONCE@1400 ONE Administration Primidone 50 mg 09/04/20 10:00 09/04/20 09:16 Mysoline 50mg PO 10/04/20 09:59 50 mg BID SHALINI Administration Propofol Confirm 09/02/20 13:42 Diprivan 200 Mg/20 Ml Administered 09/02/20 13:43 Dose 200 mg IV .STK-MED ONE Propofol Confirm 09/03/20 07:12 Diprivan 200 Mg/20 Ml Administered 09/03/20 07:13 Dose 200 mg IV .STK-MED ONE Propofol Confirm 09/03/20 07:24 Diprivan 200 Mg/20 Ml Administered 09/03/20 07:25 Dose 200 mg IV .STK-MED ONE Ropinirole HCl 0.25 mg 09/04/20 10:00 09/04/20 09:15 Requip 0.5 Mg PO 10/04/20 09:59 0.25 mg BID SHALINI Administration Sodium Bicarbonate 50 meq 09/01/20 18:48 09/01/20 19:37 Sodium Bicarbonate 50 Meq/50 Ml Abboject IV 09/01/20 18:49 50 meq STAT ONE Administration Sodium Bicarbonate Confirm 09/01/20 19:29 Sodium Bicarbonate 50 Meq/50 Ml Abboject Administered 09/01/20 19:30 Dose 50 meq IV .STK-MED ONE Sodium Polystyrene Sulfonate 30 g 09/01/20 18:51 09/01/20 19:34 Kayexylate 15 Gm/60 Ml PO 09/01/20 18:52 30 g STAT ONE Administration Sodium Polystyrene Sulfonate Confirm 09/01/20 19:28 Kayexylate 15 Gm/60 Ml Administered 09/01/20 19:29 Dose 30 g .ROUTE .STK-MED ONE Tamsulosin HCl 0.4 mg 09/03/20 20:00 09/03/20 19:58 Flomax 0.4 Mg PO 10/03/20 19:59 0.4 mg 2000 SHALINI Administration Intake & Output (Last 24 hours) 09/01/20 09/02/20 09/03/20 09/04/20 11:59 11:59 11:59 11:59 Intake Total 4645 5837 9814 Output Total 7861 8484 Balance 9930 -0468 -783 Weight 75.4 kg 71.1 kg 70.1 kg Microbiology Results (Last 24 hours) 09/03/20 18:20 Urine, Indwelling Catheter Urine Culture - Preliminary NO GROWTH TO DATE 09/02/20 19:40 Clean Catch Midstream Urine Culture - Final NO GROWTH Laboratory Results (Last 24 hours) 09/04/20 09/04/20 09/04/20 04:33 04:33 04:33 WBC 8.6 RBC 2.43 L Hgb 7.4 L Hct 23.3 L MCV 95.9 MCH 30.5 MCHC 31.8 L RDW 14.3 H Plt Count 208 MPV 10.4 Gran % 76.8 H Eos # (Auto) 0.93 H Absolute Lymphs (auto) 0.58 L Absolute Monos (auto) 0.47 Lymphocytes % 6.7 L Monocytes % 5.5 Eosinophils % 10.8 H Basophils % 0.2 Absolute Granulocytes 6.61 Basophils # 0.02 Smear Path Review Sodium 135 L Potassium 3.6 D Chloride 106 Carbon Dioxide 17 L Anion Gap 15.8 H BUN 63 H Creatinine 7.02 H Estimated GFR 8.0 Glucose 105 Calcium 7.5 L Magnesium 1.6 Iron Ferritin Total Bilirubin 0.30 AST 13 L ALT 5 Alkaline Phosphatase 49 Serum Total Protein 5.4 L Albumin 2.9 L Vitamin B12 Folic Acid Urine Color Urine Appearance Urine pH Ur Specific [place] Urine Protein Urine Ketones Urine Blood Urine Nitrite Urine Bilirubin Urine Urobilinogen Ur Leukocyte Esterase Urine WBC (Auto) Urine RBC (Auto) U Epithel Cells (Auto) Urine Bacteria (Auto) Urine Culture Reflexed Urine Glucose SARS-CoV-2 (PCR) Slides for Path Review YES 09/03/20 09/03/20 09/03/20 19:10 18:20 03:31 WBC RBC Hgb Hct MCV MCH MCHC RDW Plt Count MPV Gran % Eos # (Auto) Absolute Lymphs (auto) Absolute Monos (auto) Lymphocytes % Monocytes % Eosinophils % Basophils % Absolute Granulocytes Basophils # Smear Path Review Sodium Potassium Chloride Carbon Dioxide Anion Gap BUN Creatinine Estimated GFR Glucose Calcium Magnesium Iron 57 Ferritin Total Bilirubin AST ALT Alkaline Phosphatase Serum Total Protein Albumin Vitamin B12 Folic Acid Urine Color RED Urine Appearance CLOUDY Urine pH 7.0 Ur Specific [place] 1.011 Urine Protein 100 Urine Ketones TRACE Urine Blood LARGE Urine Nitrite NEGATIVE Urine Bilirubin NEGATIVE Urine Urobilinogen NEGATIVE Ur Leukocyte Esterase NEGATIVE Urine WBC (Auto) 6-10 Urine RBC (Auto) >101 U Epithel Cells (Auto) NONE Urine Bacteria (Auto) FEW Urine Culture Reflexed ORDERED SEPARATELY Urine Glucose 50 SARS-CoV-2 (PCR) NEGATIVE Slides for Path Review 09/03/20 09/03/20 03:31 03:15 WBC 11.4 H RBC 2.89 L Hgb 8.8 L Hct 27.9 L MCV 96.5 MCH 30.4 MCHC 31.5 L RDW 14.7 H Plt Count 220 MPV 9.8 Gran % 87.7 H Eos # (Auto) 0.37 Absolute Lymphs (auto) 0.53 L Absolute Monos (auto) 0.48 Lymphocytes % 4.6 L Monocytes % 4.2 Eosinophils % 3.2 Basophils % 0.3 Absolute Granulocytes 10.00 H Basophils # 0.03 Smear Path Review Sodium Potassium Chloride Carbon Dioxide Anion Gap BUN Creatinine Estimated GFR Glucose Calcium Magnesium Iron Ferritin 720 H Total Bilirubin AST ALT Alkaline Phosphatase Serum Total Protein Albumin Vitamin B12 975 H Folic Acid 4.76 Urine Color Urine Appearance Urine pH Ur Specific [place] Urine Protein Urine Ketones Urine Blood Urine Nitrite Urine Bilirubin Urine Urobilinogen Ur Leukocyte Esterase Urine WBC (Auto) Urine RBC (Auto) U Epithel Cells (Auto) Urine Bacteria (Auto) Urine Culture Reflexed Urine Glucose SARS-CoV-2 (PCR) Slides for Path Review YES Orders (Last 24 hours) Category Date Time Status WALK [Walk With Assistance] TID Activity 09/03/20 13:23 Completed Miscellaneous Nursing Order ROUTINE Care 09/03/20 13:23 Completed House Regular Diet Diet 09/03/20 Dinner Completed NPO Diet 09/04/20 00:01 Completed Discharge Routine Discharge 09/04/20 Ordered Discharge/Telephone Order Routine Discharge 09/04/20 Active MINNIE w/Reflex Urgent Lab 09/03/20 18:20 Received Anti-DNA (DS) Ab Qn Urgent Lab 09/03/20 18:20 Received Antineutrophil Cytoplasmic Ab Urgent Lab 09/03/20 18:20 Received CBC W DIFF AM.LAB Lab 09/04/20 04:33 Completed CMP AM.LAB Lab 09/04/20 04:33 Completed CULTURE,URINE Urgent Lab 09/03/20 18:20 Results Complement C3 Urgent Lab 09/03/20 18:20 Received Complement C4 Urgent Lab 09/03/20 18:20 Received MAG [MAGNESIUM] AM.LAB Lab 09/04/20 04:33 Completed UA W/RFX UR CULTURE Urgent Lab 09/03/20 18:20 Completed Amlodipine Besylate 5 mg [Norvasc 5 mg] Med 09/03/20 14:00 Discontinued 2.5 mg PO QAM Bisacodyl 5 mg [Dulcolax 5 mg] Med 09/03/20 17:47 Discontinued 10 mg PO QDP PRN Carbidopa/Levodopa 25/100 mg [Sinemet 25/100 MG] Med 09/04/20 10:00 Discontinued 1 tab PO BID D5w 1000 ml [Dextrose 5%/Water IV Soln. 1000 ML] 1,000 Med 09/03/20 18:00 Discontinued ml Sodium Bicarbonate 50Meq Vial* [Sodium Bicarbonate 50 MEQ/50 ML VIAL] 150 meq IV 70 mls/hr Finasteride 5 mg [Proscar 5 MG] Med 09/04/20 10:00 Discontinued 5 mg PO DAILY Furosemide 40 mg/4 ml [Lasix 40 MG/4 ML] Med 09/03/20 22:00 Discontinued 40 mg IV BID HydrALAzine HCL 25 MG TAB [Apresoline 25 MG TABLET Med 09/03/20 22:00 Discontinued *] 25 mg PO TID Metoprolol Tartrate 25 mg [Lopressor 25MG Tab] Med 09/03/20 22:00 Discontinued 25 mg PO BID Primidone 50 MG [Mysoline 50Mg] Med 09/04/20 10:00 Discontinued 50 mg PO BID Ropinirole HCl 0.5 mg [Requip 0.5 MG] Med 09/04/20 10:00 Discontinued 0.25 mg PO BID Tamsulosin HCl 0.4 mg [Flomax 0.4 MG] Med 09/03/20 20:00 Discontinued 0.4 mg PO 1999 Patient Care Notes (Last 24 hours) 09/04/20 10:51 Nursing Note by Domenica Taveras Discharged at this time via ambulance. Initialized on 09/04/20 10:51 - END OF NOTE 09/04/20 09:32 Nursing Note by Domenica Taveras Called [facility] and report given to Margarita regarding pt's transfer. Initialized on 09/04/20 09:32 - END OF NOTE 09/04/20 09:08 Nursing Note by Domenica Taveras Attempted to Call Yaquelin, pt's spouse, left message to return call. Called pt's daughter, Melanie, and made her aware Dr Araya is transferring pt to [facility]. Initialized on 09/04/20 09:08 - END OF NOTE 09/04/20 09:02 SBAR Note by Domenica Taveras SITUATION I am calling about SHANDA JOHNSON the patient's code status is Full Code The problem I am calling about is: Dr Araya called for update on pt; new orders received. ASSESSMENT RECOMMENDATION Physician notified at [id number] New Orders received: Vital Signs (Last 4 hours) Temp Pulse Resp BP Pulse Ox 09/04/20 08:00 16 09/04/20 07:16 97.9 F 65 12 159/60 99 Diagnois, Code Status Date of Arrival on Unit 09/01/20 Admitted From Emergency Dept Diagnosis c/o diarrhea, low hemoglobin Resucitation Status Full Code Intake and Output 24 Hours 09/04/20 09/05/20 06:59 06:59 Intake Total 2804 Output Total 4050 650 Balance -1246 -650 Weight 70.1 kg Intake: Intake, Oral Amount 1160 Intake, IV Amount 1644 Output: Output, Urine Amount 1500 Output, Chaves: 2550 650 Other: Number of Bowel Movements 0 Physical Assessment Anxiety Level None,at ease,Awake,Calm,Low Mental Status Alert Patient Orientation Person,Place,Time Coma Scale Total 15 Breath Sounds [Anterior/ Clear,Diminished Posterior Bilateral Throughout ] Breath Sounds [Anterior/ Clear Posterior Bilateral Throughout ] Cardiac Rhythm-[facility] Sinus Bradycardia Change from Baseline: No Bowel Sounds [All Quadrants] Active Abdomen Description Soft,Large,Round,Distended,Non-Tender Date Chaves Cath Inserted 09/02/2020 Urine Appearance Cloudy Urine Color Ortiz Skin Color [Bilateral] Pale Skin Color Pale Skin Temperature [Bilateral] Warm Skin Temperature Warm Pain Scale (Last 24 Hours) Pain Intensity 0 Pain Intensity 0 Pain Intensity 0 Pain Intensity 0 Pain Intensity 0 Pain Intensity 0 PAST MEDICAL HISTORY Neurological History Other ENT History No Pertinent History Endocrine Medical History No Pertinent History Respiratory History No Pertinent History Cardiac History No Pertinent History GI Medical History No Pertinent History History No Pertinent History Pyscho-Social History No Pertinent History Communicable Disease No Pertinent History Comment parkinsons, enlarged prostate Diet Order (Last 24 Hours) 09/04/20 00:01 NPO Lab Results (Last 24 Hours) 09/04/20 09/04/20 09/04/20 Range/Units 04:33 04:33 04:33 WBC 8.6 (4.0-10.5) K/mm3 RBC 2.43 L (4.1-5.6) M/mm3 Hgb 7.4 L (12.5-18.0) gm/dl Hct 23.3 L (42-50) % MCV 95.9 (78-100) fl MCH 30.5 (26-32) pg MCHC 31.8 L (32-36) g/dl RDW 14.3 H (11.5-14.0) % Plt Count 208 (150-450) K/mm3 MPV 10.4 (7.5-11.0) fl Gran % 76.8 H (36.0-66.0) % Eos # (Auto) 0.93 H (0-0.5) Absolute Lymphs (auto) 0.58 L (1.0-4.6) Absolute Monos (auto) 0.47 (0.0-1.3) Lymphocytes % 6.7 L (24.0-44.0) % Monocytes % 5.5 (0.0-12.0) % Eosinophils % 10.8 H (0.00-5.0) % Basophils % 0.2 (0.0-0.4) % Absolute Granulocytes 6.61 (1.4-6.9) Basophils # 0.02 (0-0.4) Smear Path Review Sodium 135 L (137-145) mmol/L Potassium 3.6 D (3.5-5.1) mmol/L Chloride 106 (98-107) mmol/L Carbon Dioxide 17 L (22-30) mmol/L Anion Gap 15.8 H (5-15) MEQ/L BUN 63 H (9-20) mg/dL Creatinine 7.02 H (0.66-1.25) mg/dL Estimated GFR 8.0 ML/MIN Glucose 105 (74-106) mg/dL Calcium 7.5 L (8.4-10.2) mg/dL Magnesium 1.6 (1.6-2.3) mg/dL Iron (49-181) ug/dL Ferritin (17.9-464) ng/mL Total Bilirubin 0.30 (0.2-1.3) mg/dL AST 13 L (17-59) U/L ALT 5 (0-50) U/L Alkaline Phosphatase 49 (38-126) U/L Serum Total Protein 5.4 L (6.3-8.2) g/dL Albumin 2.9 L (3.5-5.0) g/dL Vitamin B12 (239-931) pg/mL Folic Acid (2.76 - >20) ng/mL Urine Color (YELLOW) Urine Appearance (CLEAR) Urine pH (5-6) Ur Specific [place] (1.005-1.025) Urine Protein (Negative) Urine Ketones (NEGATIVE) Urine Blood (0-5) Angel/ul Urine Nitrite (NEGATIVE) Urine Bilirubin (NEGATIVE) Urine Urobilinogen (0-1) mg/dL Ur Leukocyte Esterase (NEGATIVE) Urine WBC (Auto) (0-5) /HPF Urine RBC (Auto) (0-2) /HPF U Epithel Cells (Auto) (FEW) /HPF Urine Bacteria (Auto) (NEGATIVE) /HPF Urine Culture Reflexed (NO) Urine Glucose (NEGATIVE) mg/dL SARS-CoV-2 (PCR) (NEGATIVE) Slides for Path Review YES 09/03/20 09/03/20 09/03/20 Range/Units 19:10 18:20 03:31 WBC (4.0-10.5) K/mm3 RBC (4.1-5.6) M/mm3 Hgb (12.5-18.0) gm/dl Hct (42-50) % MCV (78-100) fl MCH (26-32) pg MCHC (32-36) g/dl RDW (11.5-14.0) % Plt Count (150-450) K/mm3 MPV (7.5-11.0) fl Gran % (36.0-66.0) % Eos # (Auto) (0-0.5) Absolute Lymphs (auto) (1.0-4.6) Absolute Monos (auto) (0.0-1.3) Lymphocytes % (24.0-44.0) % Monocytes % (0.0-12.0) % Eosinophils % (0.00-5.0) % Basophils % (0.0-0.4) % Absolute Granulocytes (1.4-6.9) Basophils # (0-0.4) Smear Path Review Sodium (137-145) mmol/L Potassium (3.5-5.1) mmol/L Chloride (98-107) mmol/L Carbon Dioxide (22-30) mmol/L Anion Gap (5-15) MEQ/L BUN (9-20) mg/dL Creatinine (0.66-1.25) mg/dL Estimated GFR ML/MIN Glucose (74-106) mg/dL Calcium (8.4-10.2) mg/dL Magnesium (1.6-2.3) mg/dL Iron 57 (49-181) ug/dL Ferritin (17.9-464) ng/mL Total Bilirubin (0.2-1.3) mg/dL AST (17-59) U/L ALT (0-50) U/L Alkaline Phosphatase (38-126) U/L Serum Total Protein (6.3-8.2) g/dL Albumin (3.5-5.0) g/dL Vitamin B12 (239-931) pg/mL Folic Acid (2.76 - >20) ng/mL Urine Color RED (YELLOW) Urine Appearance CLOUDY (CLEAR) Urine pH 7.0 (5-6) Ur Specific [place] 1.011 (1.005-1.025) Urine Protein 100 (Negative) Urine Ketones TRACE (NEGATIVE) Urine Blood LARGE (0-5) Angel/ul Urine Nitrite NEGATIVE (NEGATIVE) Urine Bilirubin NEGATIVE (NEGATIVE) Urine Urobilinogen NEGATIVE (0-1) mg/dL Ur Leukocyte Esterase NEGATIVE (NEGATIVE) Urine WBC (Auto) 6-10 (0-5) /HPF Urine RBC (Auto) >101 (0-2) /HPF U Epithel Cells (Auto) NONE (FEW) /HPF Urine Bacteria (Auto) FEW (NEGATIVE) /HPF Urine Culture Reflexed ORDERED SEPARATELY (NO) Urine Glucose 50 (NEGATIVE) mg/dL SARS-CoV-2 (PCR) NEGATIVE (NEGATIVE) Slides for Path Review 09/03/20 09/03/20 Range/Units 03:31 03:15 WBC 11.4 H (4.0-10.5) K/mm3 RBC 2.89 L (4.1-5.6) M/mm3 Hgb 8.8 L (12.5-18.0) gm/dl Hct 27.9 L (42-50) % MCV 96.5 (78-100) fl MCH 30.4 (26-32) pg MCHC 31.5 L (32-36) g/dl RDW 14.7 H (11.5-14.0) % Plt Count 220 (150-450) K/mm3 MPV 9.8 (7.5-11.0) fl Gran % 87.7 H (36.0-66.0) % Eos # (Auto) 0.37 (0-0.5) Absolute Lymphs (auto) 0.53 L (1.0-4.6) Absolute Monos (auto) 0.48 (0.0-1.3) Lymphocytes % 4.6 L (24.0-44.0) % Monocytes % 4.2 (0.0-12.0) % Eosinophils % 3.2 (0.00-5.0) % Basophils % 0.3 (0.0-0.4) % Absolute Granulocytes 10.00 H (1.4-6.9) Basophils # 0.03 (0-0.4) Smear Path Review Sodium (137-145) mmol/L Potassium (3.5-5.1) mmol/L Chloride (98-107) mmol/L Carbon Dioxide (22-30) mmol/L Anion Gap (5-15) MEQ/L BUN (9-20) mg/dL Creatinine (0.66-1.25) mg/dL Estimated GFR ML/MIN Glucose (74-106) mg/dL Calcium (8.4-10.2) mg/dL Magnesium (1.6-2.3) mg/dL Iron (49-181) ug/dL Ferritin 720 H (17.9-464) ng/mL Total Bilirubin (0.2-1.3) mg/dL AST (17-59) U/L ALT (0-50) U/L Alkaline Phosphatase (38-126) U/L Serum Total Protein (6.3-8.2) g/dL Albumin (3.5-5.0) g/dL Vitamin B12 975 H (239-931) pg/mL Folic Acid 4.76 (2.76 - >20) ng/mL Urine Color (YELLOW) Urine Appearance (CLEAR) Urine pH (5-6) Ur Specific [place] (1.005-1.025) Urine Protein (Negative) Urine Ketones (NEGATIVE) Urine Blood (0-5) Angel/ul Urine Nitrite (NEGATIVE) Urine Bilirubin (NEGATIVE) Urine Urobilinogen (0-1) mg/dL Ur Leukocyte Esterase (NEGATIVE) Urine WBC (Auto) (0-5) /HPF Urine RBC (Auto) (0-2) /HPF U Epithel Cells (Auto) (FEW) /HPF Urine Bacteria (Auto) (NEGATIVE) /HPF Urine Culture Reflexed (NO) Urine Glucose (NEGATIVE) mg/dL SARS-CoV-2 (PCR) (NEGATIVE) Slides for Path Review YES Microbiology Results (Last 24 Hours) 09/03/20 18:20 Urine Culture - Pending Urine, Indwelling Catheter Orders (Last 24 Hours) Category Date Time Status WALK [Walk With Assistance] TID Activity 09/03/20 13:23 Active Miscellaneous Nursing Order ROUTINE Care 09/03/20 13:23 Active NPO Diet 09/04/20 00:01 Active ECHO W/2D AND DOPPLER [US] Routine Exams 09/04/20 08:00 Ordered KIDNEY [US] Routine Exams 09/04/20 08:00 Ordered MINNIE w/Reflex Urgent Lab 09/03/20 18:20 Received Anti-DNA (DS) Ab Qn Urgent Lab 09/03/20 18:20 Received Antineutrophil Cytoplasmic Ab Urgent Lab 09/03/20 18:20 Received CBC AM.LAB Lab 09/05/20 04:00 Ordered CBC AM.LAB Lab 09/06/20 04:00 Ordered CBC AM.LAB Lab 09/07/20 04:00 Ordered CBC AM.LAB Lab 09/08/20 04:00 Ordered CBC AM.LAB Lab 09/09/20 04:00 Ordered CMP AM.LAB Lab 09/05/20 04:00 Ordered CMP AM.LAB Lab 09/06/20 04:00 Ordered CMP AM.LAB Lab 09/07/20 04:00 Ordered CMP AM.LAB Lab 09/08/20 04:00 Ordered CMP AM.LAB Lab 09/09/20 04:00 Ordered CULTURE,URINE Urgent Lab 09/03/20 18:20 Received Complement C3 Urgent Lab 09/03/20 18:20 Received Complement C4 Urgent Lab 09/03/20 18:20 Received MAG [MAGNESIUM] AM.LAB Lab 09/05/20 04:00 Ordered MAG [MAGNESIUM] AM.LAB Lab 09/06/20 04:00 Ordered MAG [MAGNESIUM] AM.LAB Lab 09/07/20 04:00 Ordered MAG [MAGNESIUM] AM.LAB Lab 09/08/20 04:00 Ordered MAG [MAGNESIUM] AM.LAB Lab 09/09/20 04:00 Ordered Bisacodyl 5 mg [Dulcolax 5 mg] Med 09/03/20 17:47 Active 10 mg PO QDP PRN Carbidopa/Levodopa 25/100 mg [Sinemet 25/100 MG] Med 09/04/20 10:00 Ordered 1 tab PO BID D5w 1000 ml [Dextrose 5%/Water IV Soln. 1000 ML] 1,000 Med 09/03/20 18:00 Active ml Sodium Bicarbonate 50Meq Vial* [Sodium Bicarbonate 50 MEQ/50 ML VIAL] 150 meq IV 70 mls/hr Finasteride 5 mg [Proscar 5 MG] Med 09/04/20 10:00 Active 5 mg PO DAILY Furosemide 40 mg/4 ml [Lasix 40 MG/4 ML] Med 09/03/20 22:00 Active 40 mg IV BID HydrALAzine HCL 25 MG TAB [Apresoline 25 MG TABLET Med 09/03/20 22:00 Active *] 25 mg PO TID Metoprolol Tartrate 25 mg [Lopressor 25MG Tab] Med 09/03/20 22:00 Active 25 mg PO BID Primidone 50 MG [Mysoline 50Mg] Med 09/04/20 10:00 Ordered 50 mg PO BID Ropinirole HCl 0.5 mg [Requip 0.5 MG] Med 09/04/20 10:00 Ordered 0.25 mg PO BID Tamsulosin HCl 0.4 mg [Flomax 0.4 MG] Med 09/03/20 20:00 Active 0.4 mg PO 1999 Active Visit Medications Generic Name Dose Route Start Last Admin Trade Name Freq PRN Reason Stop Dose Admin Bisacodyl 10 mg 09/03/20 17:47 Dulcolax 5 Mg PO 10/03/20 17:46 QDP PRN Carbidopa/Levodopa 1 tab 09/04/20 10:00 Sinemet 25/100 Mg PO 10/04/20 09:59 BID SHALINI Finasteride 5 mg 09/04/20 10:00 Proscar 5 Mg PO 10/04/20 09:59 DAILY SHALINI Furosemide 40 mg 09/03/20 22:00 09/03/20 21:01 Lasix 40 Mg/4 Ml IV 10/03/20 21:59 40 mg BID SHALINI Administration Hydralazine HCl 25 mg 09/03/20 22:00 09/03/20 21:01 Apresoline 25 Mg Tablet PO 10/03/20 21:59 25 mg TID SHALINI Administration Sodium Bicarbonate 150 meq/ 1,150 mls @ 70 mls/hr 09/03/20 18:00 09/03/20 18:10 Dextrose IV 10/03/20 17:59 70 ml/hr .[id number] SHALINI 70 mls/hr Administration Metoprolol Tartrate 25 mg 09/03/20 22:00 09/03/20 21:01 Lopressor 25mg Tab PO 10/03/20 21:59 25 mg BID SHALINI Administration Miscellaneous Medication 1 each 09/02/20 10:00 09/02/20 16:50 No Nsaids/Asa/Plavix MC 09/08/20 10:01 1 each DAILY SHALINI Administration Tamsulosin HCl 0.4 mg 09/03/20 20:00 09/03/20 19:58 Flomax 0.4 Mg PO 10/03/20 19:59 0.4 mg 2000 SHALINI Administration Home Medications Medication Instructions Recorded Confirmed Last Taken Type Carbidopa/Levodopa [Carbidopa-Levo 1 each PO BID 09/01/20 09/01/20 09/01/20 History ER 25-100 Tab] Celecoxib 100 mg [celeBREX 100 100 mg PO DAILY 09/01/20 09/01/20 09/01/20 History MG] Primidone 50 MG [Mysoline 50Mg] 50 mg PO BID 09/01/20 09/01/20 09/01/20 History Ropinirole HCl 0.25 mg PO BID 09/01/20 09/01/20 09/01/20 History Initialized on 09/04/20 09:02 - END OF NOTE 09/03/20 13:19 Nursing Note by Jody Calhoun rounded with dr. araya. new order obtained for cbc and cmp in am, norvasc 2.5mg po daily, irrigate chaves cath to see if it will clear, and walk pt. Initialized on 09/03/20 13:19 - END OF NOTE Code(s): N17.9 - ACUTE KIDNEY FAILURE, UNSPECIFIED; N18.9 - CHRONIC KIDNEY DISEASE, UNSPECIFIED (2) Iron deficiency anemia due to chronic blood loss Status: Acute Code(s): D50.0 - IRON DEFICIENCY ANEMIA SECONDARY TO BLOOD LOSS (CHRONIC) (3) Dehydration Status: Acute Code(s): E86.0 - DEHYDRATION (4) Hyperkalemia Status: Acute Code(s): E87.5 - HYPERKALEMIA - Discharge Discharge Date: 09/04/20 Disposition: DC TO [facility] Condition: Stable Prescriptions: No Action Carbidopa/Levodopa [Carbidopa-Levo ER 25-100 Tab] 1 each PO BID Primidone 50 MG [Mysoline 50Mg] 50 mg PO BID Ropinirole HCl 0.25 mg PO BID Celecoxib 100 mg [celeBREX 100 MG] 100 mg PO DAILY Follow up with: MECHE MADDOX MD [ASSOCIATE STAFF] - ABRAHAN AARYA MD [Primary Care Provider] -
== END 2020-09-04 10:12 | disposition short-term general hospital (02) | DRG 683 ==
LOC: ED 17:59 → ICU 22:28
PROVIDERS: ADMIT General Practice; ATTEND General Practice
PROC: 0DB38ZX Excision of Lower Esophagus, Via Natural or Artificial Opening Endoscopic, Diagnostic (ICD-10-PCS; principal; 2020-09-02)
PROC: 0DB88ZX Excision of Small Intestine, Via Natural or Artificial Opening Endoscopic, Diagnostic (ICD-10-PCS; 2020-09-02)
PROC: 0DB68ZX Excision of Stomach, Via Natural or Artificial Opening Endoscopic, Diagnostic (ICD-10-PCS; 2020-09-02)
PROC: 0DJD8ZZ Inspection of Lower Intestinal Tract, Via Natural or Artificial Opening Endoscopic (ICD-10-PCS; 2020-09-03)
DX: I12.9 Hypertensive chronic kidney disease with stage 1 through stage 4 chronic kidney disease, or unspecified chronic kidney disease (principal); N17.9 Acute kidney failure, unspecified; E87.2 Acidosis; I10 Essential (primary) hypertension; N18.9 Chronic kidney disease, unspecified; R53.1 Weakness; R19.7 Diarrhea, unspecified; G20 Parkinson's disease; D50.0 Iron deficiency anemia secondary to blood loss (chronic); R51.9 Headache, unspecified; E86.0 Dehydration; E87.5 Hyperkalemia; Z79.899 Other long term (current) drug therapy; R63.4 Abnormal weight loss; M19.90 Unspecified osteoarthritis, unspecified site; K29.70 Gastritis, unspecified, without bleeding; K20.90 Esophagitis, unspecified without bleeding; K57.30 Diverticulosis of large intestine without perforation or abscess without bleeding; N40.0 Benign prostatic hyperplasia without lower urinary tract symptoms
CPT/HCPCS: 36000; 36415; 36430; 43239; 45378; 71045; 71250; 74176; 80048; 80053; 81001; 82150; 82607; 82728; 82746; 82947; 83540; 83605; 83690; 83735; 84484; 85025; 85610; 86038; 86160; 86225; 86256; 86850; 86900; 86901; 86922; 87040; 87086; 93005; 96361; 96374; 96375; 97110; 97161; 99285; 99291; G0328; P9016; U0003; 82274; 99100; J0610; J1815; J1940; J2704; A9270-GY

== ENCOUNTER 2020-10-01 11:49 | Emergency (ER) | payer MEDICARE, OTHER ==
--- NOTE | 2020-10-01 12:08 | ERPHSYRPT ---
- History of Present Illness Time Seen by Provider: 10/01/20 12:20 Source: patient Exam Limitations: no limitations Physician History: Patient is an 84-year-old male presents to our ED for evaluation of generalized weakness and anorexia for 2 days. Family observed that indwelling Matthews catheter output appears abnormal. Urine appears very cloudy. No fever. No chest pain or shortness of breath. No nausea vomiting or diaphoresis. Symptoms are mild to moderate in intensity. No specific worsening improving factors. Family notified patient's primary care doctor who advised patient come to our ED for evaluation. Patient voices no other complaints or concerns at this time. Timing/Duration: today Severity: moderate Modifying Factors: Improves With: nothing Associated Symptoms: No abdominal pain, No diaphoresis, No cough, No chills, No chest pain, No fever, No headaches, No rash, No syncope, No seizure, No weakness Allergies/Adverse Reactions: No Known Drug Allergies Allergy (Verified 10/01/20 12:18) Home Medications: Carbidopa/Levodopa [Carbidopa-Levo ER 25-100 Tab] 1 each PO BID 09/01/20 [Histo ry] Ropinirole HCl 0.25 mg PO BID 09/01/20 [History] Cyanocobalamin (Vitamin B-12) [B-12] 1 ea DAILY 10/01/20 [History] Ferrous Sulfate 1 ea DAILY 10/01/20 [History] Finasteride 5 mg [Proscar 5 MG] 1 ea DAILY 10/01/20 [History] Fluticasone Propionate [Flonase Allergy Relief] 1 ea BID 10/01/20 [History] Furosemide 40 mg [Lasix 40 MG] 1 ea DAILY 10/01/20 [History] Loratadine 10 mg [Claritin 10 mg] 1 ea DAILY 10/01/20 [History] Primidone 50 MG [Mysoline 50Mg] 1 ea BID 10/01/20 [History] Tamsulosin HCl 0.4 mg [Flomax 0.4 MG] 0.4 mg PO DAILY 10/01/20 [History] Hx Tetanus, Diphtheria Vaccination/Date Given: No Hx Influenza Vaccination/Date Given: Yes Hx Pneumococcal Vaccination/Date Given: No - Review of Systems Constitutional: No Symptoms, Weakness, No Fever, No Chills, No Lethargy, No Weight Loss Eyes: No Symptoms Ears, Nose, & Throat: No Symptoms Respiratory: No Symptoms, No Cough, No Dyspnea Cardiac: No Symptoms, No Chest Pain, No Edema, No Syncope Abdominal/Gastrointestinal: No Symptoms, No Abdominal Pain, No Nausea, No Vomiting, No Diarrhea Genitourinary Symptoms: Other (Indwelling Matthews catheter intact), No Dysuria, No Urinary Retention, No Flank Pain, No Testicle Pain Musculoskeletal: No Symptoms, No Back Pain, No Neck Pain Skin: No Symptoms, No Rash Neurological: No Symptoms, No Dizziness, No Focal Weakness, No Sensory Changes Psychological: No Symptoms Endocrine: No Symptoms All Other Systems: Reviewed and Negative - Past Medical History Pertinent Past Medical History: Yes Neurological History: Other ENT History: No Pertinent History Cardiac History: No Pertinent History Respiratory History: No Pertinent History Endocrine Medical History: No Pertinent History Musculoskeletal History: No Pertinent History GI Medical History: No Pertinent History History: No Pertinent History Psycho-Social History: No Pertinent History Male Reproductive Disorders: Prostate Problems Other Medical History: parkinsons, enlarged prostate - Past Surgical History Past Surgical History: Yes Neuro Surgical History: No Pertinent History Cardiac: No Pertinent History Respiratory: No Pertinent History Gastrointestinal: No Pertinent History Genitourinary: No Pertinent History Musculoskeletal: No Pertinent History Male Surgical History: No Pertinent History - Social History Smoking Status: Never smoker Exposure to second hand smoke: No Drug Use: none Patient Lives Alone: No () - Nursing Vital Signs Nursing Vital Signs: Initial Vital Signs Temperature 98.2 F 10/01/20 12:06 Pulse Rate 58 L 10/01/20 12:06 Respiratory Rate 16 10/01/20 12:06 Blood Pressure 111/68 10/01/20 12:06 O2 Sat by Pulse Oximetry 99 10/01/20 12:06 Pain Scale Pain Intensity 0 - Physical Exam General Appearance: no apparent distress, alert Eye Exam: PERRL/EOMI, eyes nml inspection Ears, Nose, Throat Exam: normal ENT inspection, TMs normal, pharynx normal, moist mucous membranes Neck Exam: normal inspection, non-tender, supple, full range of motion Respiratory Exam: normal breath sounds, lungs clear, No respiratory distress Cardiovascular Exam: regular rate/rhythm, normal heart sounds, normal peripheral pulses Gastrointestinal/Abdomen Exam: soft, normal bowel sounds, No tenderness, No mass Male Genitalia Exam: normal genitalia, other (Indwelling Matthews catheter observed. The urine is very cloudy. No suprapubic pain. No abdominal pain. No testicular pain. No back or flank pain.) Back Exam: normal inspection, normal range of motion, No CVA tenderness, No vertebral tenderness Extremity Exam: normal inspection, normal range of motion, pelvis stable Neurologic Exam: alert, oriented x 3, cooperative, normal mood/affect, nml cerebellar function, nml station & gait, sensation nml, No motor deficits Skin Exam: normal color, warm, dry, No rash Lymphatic Exam: No adenopathy SpO2 Interpretation: normal SpO2: 99 O2 Delivery: Room Air - Course Nursing assessment & vital signs reviewed: Yes EKG Interpreted by Me: RATE (54), A-fib, NORMAL AXIS, NORMAL INTERVALS Ordered Tests: Active Orders 24 hr Category Date Time Status EKG-ER Only STAT Care 10/01/20 12:27 Active CBC W DIFF Stat Lab 10/01/20 12:20 Completed CMP Stat Lab 10/01/20 12:20 Completed CULTURE,URINE Stat Lab 10/01/20 12:33 Ordered CULTURE,URINE Stat Lab 10/01/20 12:33 Received MAGNESIUM Stat Lab 10/01/20 12:20 Completed TROPONIN Q3H Lab 10/01/20 12:30 Completed TROPONIN Q3H Lab 10/02/20 00:30 Ordered UA W/RFX UR CULTURE Stat Lab 10/01/20 12:33 Completed Transfer Order Routine Transfer 10/01/20 Ordered Medication Summary Generic Name Dose Route Start Last Admin Trade Name Freq PRN Reason Stop Dose Admin Sodium Chloride 1,000 mls @ 100 mls/hr 10/01/20 14:00 10/01/20 14:01 Sodium Chloride 0.9% 1000 Ml IV 10/31/20 13:59 100 mls/hr .Q10H SHALINI Administration Discontinued Medications Generic Name Dose Route Start Last Admin Trade Name Freq PRN Reason Stop Dose Admin Enoxaparin Sodium 70 mg 10/01/20 14:13 10/01/20 14:22 Enoxaparin Sodium SQ 10/01/20 14:14 70 mg STAT ONE Administration Enoxaparin Sodium Confirm 10/01/20 14:18 Enoxaparin Sodium Administered 10/01/20 14:19 Dose 80 mg SQ .STK-MED ONE Ceftriaxone Sodium/Dextrose 1 g in 50 mls @ 100 mls/hr 10/01/20 14:04 10/01/20 14:53 Rocephin 1 Gm-D5w 50 Ml Bag IV 10/01/20 14:33 Infused STAT STA Infusion Ceftriaxone Sodium/Dextrose Confirm 10/01/20 14:19 Rocephin 1 Gm-D5w 50 Ml Bag Administered 10/01/20 14:20 Dose 1 g in 50 mls @ ud IV .STK-MED ONE Lab/Rad Data: Laboratory Result Diagrams 10/01/20 12:20 10/01/20 12:20 Laboratory Results 10/01/20 10/01/20 10/01/20 Range/Units 14:30 12:33 12:30 WBC (4.0-10.5) K/mm3 RBC (4.1-5.6) M/mm3 Hgb (12.5-18.0) gm/dl Hct (42-50) % MCV (78-100) fl MCH (26-32) pg MCHC (32-36) g/dl RDW (11.5-14.0) % Plt Count (150-450) K/mm3 MPV (7.5-11.0) fl Gran % (36.0-66.0) % Eos # (Auto) (0-0.5) Absolute Lymphs (auto) (1.0-4.6) Absolute Monos (auto) (0.0-1.3) Lymphocytes % (24.0-44.0) % Monocytes % (0.0-12.0) % Eosinophils % (0.00-5.0) % Basophils % (0.0-0.4) % Absolute Granulocytes (1.4-6.9) Basophils # (0-0.4) Sodium (137-145) mmol/L Potassium (3.5-5.1) mmol/L Chloride (98-107) mmol/L Carbon Dioxide (22-30) mmol/L Anion Gap (5-15) MEQ/L BUN (9-20) mg/dL Creatinine (0.66-1.25) mg/dL Estimated GFR ML/MIN Glucose (74-106) mg/dL Calcium (8.4-10.2) mg/dL Magnesium (1.6-2.3) mg/dL Total Bilirubin (0.2-1.3) mg/dL AST (17-59) U/L ALT (0-50) U/L Alkaline Phosphatase (38-126) U/L Troponin I 0.017 (0.000-0.034) ng/mL Serum Total Protein (6.3-8.2) g/dL Albumin (3.5-5.0) g/dL Urine Color YELLOW (YELLOW) Urine Appearance TURBID (CLEAR) Urine pH 6.0 (5-6) Ur Specific [place] 1.011 (1.005-1.025) Urine Protein 100 (Negative) Urine Ketones NEGATIVE (NEGATIVE) Urine Blood MODERATE (0-5) Angel/ul Urine Nitrite NEGATIVE (NEGATIVE) Urine Bilirubin NEGATIVE (NEGATIVE) Urine Urobilinogen NEGATIVE (0-1) mg/dL Ur Leukocyte Esterase LARGE (NEGATIVE) Urine WBC (Auto) >100 (0-5) /HPF Urine RBC (Auto) 51-100 (0-2) /HPF U Epithel Cells (Auto) NONE (FEW) /HPF Urine Bacteria (Auto) MODERATE (NEGATIVE) /HPF Urine Mucus (Auto) SLIGHT (NEGATIVE) /HPF Urine Culture Reflexed YES (NO) Urine Glucose NEGATIVE (NEGATIVE) mg/dL Slides for Path Review ABO Group O Rh Factor POSITIVE Antibody Screen NEGATIVE (NEGATIVE) 10/01/20 10/01/20 Range/Units 12:20 12:20 WBC 11.4 H (4.0-10.5) K/mm3 RBC 2.66 L (4.1-5.6) M/mm3 Hgb 7.8 L (12.5-18.0) gm/dl Hct 25.4 L (42-50) % MCV 95.5 (78-100) fl MCH 29.3 (26-32) pg MCHC 30.7 L (32-36) g/dl RDW 14.3 H (11.5-14.0) % Plt Count 295 (150-450) K/mm3 MPV 10.0 (7.5-11.0) fl Gran % 91.0 H (36.0-66.0) % Eos # (Auto) 0.06 (0-0.5) Absolute Lymphs (auto) 0.37 L (1.0-4.6) Absolute Monos (auto) 0.61 (0.0-1.3) Lymphocytes % 3.2 L (24.0-44.0) % Monocytes % 5.3 (0.0-12.0) % Eosinophils % 0.5 (0.00-5.0) % Basophils % 0.0 (0.0-0.4) % Absolute Granulocytes 10.38 H (1.4-6.9) Basophils # 0 (0-0.4) Sodium 127 L (137-145) mmol/L Potassium 5.0 (3.5-5.1) mmol/L Chloride 97 L (98-107) mmol/L Carbon Dioxide 16 L* (22-30) mmol/L Anion Gap 18.9 H (5-15) MEQ/L BUN 91 H (9-20) mg/dL Creatinine 6.69 H (0.66-1.25) mg/dL Estimated GFR 8.4 ML/MIN Glucose 134 H (74-106) mg/dL Calcium 7.9 L (8.4-10.2) mg/dL Magnesium 2.3 (1.6-2.3) mg/dL Total Bilirubin 0.30 (0.2-1.3) mg/dL AST 32 (17-59) U/L ALT 10 (0-50) U/L Alkaline Phosphatase 53 (38-126) U/L Troponin I (0.000-0.034) ng/mL Serum Total Protein 6.5 (6.3-8.2) g/dL Albumin 3.5 (3.5-5.0) g/dL Urine Color (YELLOW) Urine Appearance (CLEAR) Urine pH (5-6) Ur Specific [place] (1.005-1.025) Urine Protein (Negative) Urine Ketones (NEGATIVE) Urine Blood (0-5) Angel/ul Urine Nitrite (NEGATIVE) Urine Bilirubin (NEGATIVE) Urine Urobilinogen (0-1) mg/dL Ur Leukocyte Esterase (NEGATIVE) Urine WBC (Auto) (0-5) /HPF Urine RBC (Auto) (0-2) /HPF U Epithel Cells (Auto) (FEW) /HPF Urine Bacteria (Auto) (NEGATIVE) /HPF Urine Mucus (Auto) (NEGATIVE) /HPF Urine Culture Reflexed (NO) Urine Glucose (NEGATIVE) mg/dL Slides for Path Review YES ABO Group Rh Factor Antibody Screen (NEGATIVE) - Progress Progress: improved Progress Note: Patient reassessed. UA reveals urinary tract infection. Rocephin administered. EKG reveals atrial fibrillation. Patient is not on a blood thinner. Patient received a dose of Lovenox. Chronic renal sufficiency. Anemia at 7.8. Type and screen ordered. Patient is chronically anemic. No active bleeding at this time. Case discussed with Dr. Dixon. Our patient's primary care doctor who advised transferring to [facility]. Patient's urologist and product line manager are both that [facility]. Plan of care discussed with patient. He a grees to transfer to [facility] for further evaluation and treatment. He voices no other complaints or concerns at this time. IV fluids infused to address the decreased oral intake/hyponatremia. Dr. Sheriff, ED physician, is accepting physician at [facility]. 10/01/20 16:23 10/01/20 16:25 10/01/20 16:25 Counseled pt/family regarding: lab results, diagnosis, rad results - Departure Departure Disposition: Transfer Clinical Impression: Generalized weakness, Atrial fibrillation, Anemia, Hyponatremia, Chronic renal insufficiency, Anorexia, Lactic acidosis, UTI (urinary tract infection) Condition: Stable Critical Care Time: No Referrals: ABRAHAN DIXON MD [Primary Care Provider] -
[2020-10-01 12:30] LABS: Absolute Neutrophil Ct (ANC) 10.38 (1.4-6.9); Basophil (Absolute #) 0 (0-0.4); Eosinophil % 0.5 % (0.00-5.0); Eosinophil (Absolute #) 0.06 (0-0.5); Hematocrit 25.4 % (42-50); Hemoglobin 7.8 gm/dl (12.5-18.0); Lymphocyte (Absolute #) 0.37 (1.0-4.6); Lymphocytes % 3.2 % (24.0-44.0); Mean Cell Volume 95.5 fl (78-100); Mean Corpuscular Hemoglobin 29.3 pg (26-32); Mean Corpuscular Hgb Concent. 30.7 g/dl (32-36); Monocyte (Absolute #) 0.61 (0.0-1.3); Monocytes % 5.3 % (0.0-12.0); Platelet Count 295 K/mm3 (150-450); Red Blood Count 2.66 M/mm3 (4.1-5.6); Red Cell Distribution Width 14.3 % (11.5-14.0); White Blood Count 11.4 K/mm3 (4.0-10.5)
[2020-10-01 12:37] LABS: ALBUMIN 3.5 g/dL (3.5-5.0); ANION GAP 18.9 MEQ/L (5-15); BILIRUBIN,TOTAL 0.3 mg/dL (0.2-1.3); Calcium 7.9 mg/dL (8.4-10.2); Creatinine 1 6.69 mg/dL (0.66-1.25); EST GLOMERULAR FILTRATION RATE 8.4 ML/MIN; MAGNESIUM 2.3 mg/dL (1.6-2.3); Total Protein 6.5 g/dL (6.3-8.2)
[2020-10-01] MEDS ORDERED: Sodium Chloride 0.9% 1000 ML 1,000 ML ONE (14:00)
[2020-10-01] MEDS ORDERED: Sodium Chloride 0.9% 1000 ML 1,000 ML IV SCH (14:00)
[2020-10-01] MEDS ORDERED: ROCEPHIN 1 Gm-D5w 50 ml Bag** 1 G/50 ML IVPB IV STA (14:04)
[2020-10-01] MEDS ORDERED: ENOXAPARIN SODIUM SQ ONE ×2 (14:13→14:18)
[2020-10-01] MEDS ORDERED: ROCEPHIN 1 Gm-D5w 50 ml Bag** 1 G/50 ML IVPB IV ONE (14:19)
[2020-10-01 15:04] LABS: Appearance TURBID (CLEAR); Bacteria MODERATE /HPF (NEGATIVE); Bilirubin NEGATIVE (NEGATIVE); Blood MODERATE Ery/ul (0-5); Glucose NEGATIVE (NEGATIVE); Ketones NEGATIVE (NEGATIVE); Leukocyte Esterase LARGE (NEGATIVE); Mucus SLIGHT /HPF (NEGATIVE); Nitrite NEGATIVE (NEGATIVE); Protein,Urine Dip 100 (Negative); RBC 51-100 /HPF (0-2); Specific Gravity 1.011 (1.005-1.025); Urobilinogen NEGATIVE mg/dL (0-1); WBC >100 /HPF (0-5)
[2020-10-01 15:10] VITALS: BP 113/59; PULSE 55
[2020-10-01 15:12] LABS: Slide Review 1 YES
[2020-10-01 15:18] LABS: ABO TYPING O; Antibody Screen NEGATIVE (NEGATIVE); RH TYPING POSITIVE
[2020-10-01 16:26] VITALS: O2SAT 99
== END 2020-10-01 16:00 | disposition short-term general hospital (02) ==
LOC: ED 11:49
DX: R53.1 Weakness (principal); R63.0 Anorexia; I48.91 Unspecified atrial fibrillation; D64.9 Anemia, unspecified; E87.1 Hypo-osmolality and hyponatremia; N39.0 Urinary tract infection, site not specified; E87.2 Acidosis; N18.9 Chronic kidney disease, unspecified; Z79.899 Other long term (current) drug therapy
CPT/HCPCS: 36415; 51702; 80053; 81001; 83735; 84484; 85025; 86850; 86900; 86901; 87077; 87086; 87186; 93005; 96360; 96361; 96365; 96372; 99285; J0696; J1650

== ENCOUNTER 2022-06-24 18:09 | Emergency (ER) | payer MEDICARE, OTHER ==
--- NOTE | 2022-06-24 18:31 | ERPHSYRPT ---
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 Patient has history of renal failure but is not on dialysis. He is not on any anticoagulation therapy. Today, home health came by to replace the Matthews catheter. The old catheter was removed and a new 1 was placed in the balloon inflated. Patient stated that he was in a lot of pain at that time. The home health provider stated that once the catheter started to drain his symptoms would improve/resolve. However, 2 hours later, the pain was still significant and a second home health nurse provider came by. When she deflated the balloon there was blood draining around the Matthews catheter. She advance the catheter into the bladder and blood came into the tubing of the Matthews catheter bag. At that time his pain did resolve. The catheter was completely removed. Patient arrives em ergency department hemodynamically stable without burning itching or complaints of pain. Activites at Onset: none Quality: burning Onset Location: suprapubic, urethral Pain Radiation: none Severity of Pain-Max: moderate Severity of Pain-Current: none Associated Symptoms: other (Materia after catheter was placed and then removed prior to arrival) Sexual intercourse history: non-contributory Allergies/Adverse Reactions: No Known Drug Allergies Allergy (Verified 06/24/22 18:37) Home Medications: Carbidopa/Levodopa [Carbidopa-Levo ER 25-100 Tab] 1 each PO TID 09/01/20 [History] Ropinirole HCl 0.25 mg PO BID 09/01/20 [History] Cyanocobalamin (Vitamin B-12) [B-12] 1 ea PO DAILY 10/01/20 [History] Finasteride 5 mg [Proscar 5 MG] 1 ea PO DAILY 10/01/20 [History] Primidone 50 MG [Mysoline 50Mg] 1 ea BID 10/01/20 [History] Tamsulosin HCl 0.4 mg [Flomax 0.4 MG] 0.4 mg PO DAILY 10/01/20 [History] Gabapentin [Neurontin ] 100 mg PO DAILY 11/11/21 [History] Hydroxyzine HCl 25 mg [Atarax 25 mg] 1 tablet PO TID 06/24/22 [History] calcitrioL [Calcitriol] 1 tablet 06/24/22 [History] Hx Tetanus, Diphtheria Vaccination/Date Given: No Hx Influenza Vaccination/Date Given: Yes Hx Pneumococcal Vaccination/Date Given: No Travel Risk - International Travel Have you traveled outside of the country in past 3 weeks: No - Coronavirus Screening Are you exhibiting any of the following symptoms?: No Close contact with a COVID-19 positive Pt in past 14-21 Days: No - Past Medical History Pertinent Past Medical History: Yes Neurological History: Other ENT History: No Pertinent History Cardiac History: No Pertinent History Respiratory History: No Pertinent History Endocrine Medical History: No Pertinent History Musculoskeletal History: No Pertinent History GI Medical History: No Pertinent History History: Renal Disease Psycho-Social History: No Pertinent History Male Reproductive Disorders: Prostate Problems Other Medical History: parkinsons, enlarged prostate - Past Surgical History Past Surgical History: Yes Neuro Surgical History: No Pertinent History Cardiac: No Pertinent History Respiratory: No Pertinent History Gastrointestinal: No Pertinent History Genitourinary: No Pertinent History Musculoskeletal: No Pertinent History Male Surgical History: No Pertinent History - Social History Smoking Status: Former smoker Exposure to second hand smoke: No Drug Use: none Patient Lives Alone: No () - Review of Systems Constitutional: No Symptoms Eyes: No Symptoms Ears, Nose, & Throat: No Symptoms Respiratory: No Symptoms Cardiac: No Symptoms Abdominal/Gastrointestinal: No Symptoms Genitourinary Symptoms: Hematuria Musculoskeletal: No Symptoms Skin: No Symptoms Neurological: No Symptoms Psychological: No Symptoms Endocrine: No Symptoms Hematologic/Lymphatic: No Symptoms Immunological/Allergic: No Symptoms All Other Systems: Reviewed and Negative - Nursing Vital Signs Nursing Vital Signs: Initial Vital Signs Temperature 98.3 F 06/24/22 18:29 Pulse Rate 62 06/24/22 18:29 Respiratory Rate 18 06/24/22 18:29 Blood Pressure 167/69 06/24/22 18:29 O2 Sat by Pulse Oximetry 99 06/24/22 18:29 Pain Scale Pain Intensity 0 - Physical Exam General Appearance: no apparent distress, alert Eye Exam: PERRL/EOMI, eyes nml inspection Ears, Nose, Throat Exam: normal ENT inspection, moist mucous membranes Neck Exam: normal inspection, non-tender, supple, full range of motion Respiratory Exam: normal breath sounds, lungs clear, airway intact, No chest tenderness, No respiratory distress Cardiovascular Exam: regular rate/rhythm, normal heart sounds, normal peripheral pulses Gastrointestinal/Abdomen Exam: soft, normal bowel sounds, No tenderness Rectal Exam: not done Back Exam: normal inspection, normal range of motion, No CVA tenderness Extremity Exam: normal inspection, normal range of motion, pelvis stable Neurologic Exam: alert, oriented x 3, cooperative, market research coordinator II-XII nml as tested, normal mood/affect Skin Exam: normal color, warm, dry Lymphatic Exam: No adenopathy SpO2 Interpretation: normal O2 Delivery: Room Air - Course Nursing assessment & vital signs reviewed: Yes Ordered Tests: Active Orders 24 hr Category Date Time Status ABDOMEN AND PELVIS W/0 CONTRAS [CT] Stat Exams 06/24/22 18:55 Taken CBC W DIFF Stat Lab 06/24/22 19:30 Completed CMP Stat Lab 06/24/22 19:30 Completed PROTIME WITH INR Stat Lab 06/24/22 19:30 Completed Medication Summary Discontinued Medications Generic Name Dose Route Start Last Admin Trade Name Dane PRN Reason Stop Dose Admin Levofloxacin 500 mg 06/24/22 21:28 06/24/22 22:00 Levofloxacin 500 Mg Tablet PO 06/24/22 21:29 500 mg STAT ONE Administration Levofloxacin Confirm 06/24/22 21:59 Levofloxacin 500 Mg Tablet Administered 06/24/22 22:00 Dose 500 mg .ROUTE .STK-MED ONE Lab/Rad Data: Laboratory Result Diagrams 06/24/22 19:30 06/24/22 19:30 Laboratory Results 06/24/22 06/24/22 06/24/22 Range/Units 19:30 19:30 19:30 WBC 8.1 (4.0-10.5) x10^3/uL RBC 3.42 L (4.1-5.6) x10^6/uL Hgb 10.4 L (12.5-18.0) g/dL Hct 33.6 L (42-50) % MCV 98.2 (78-100) fL MCH 30.4 (26-32) pg MCHC 31.0 L (32-36) g/dL RDW 14.3 H (11.5-14.0) % Plt Count 215 (150-450) x10^3/uL MPV 10.3 (7.5-11.0) fL Gran % 73.9 H (36.0-66.0) % Immature Gran % (Auto) 0.4 (0.00-0.4) % Nucleat RBC Rel Count 0.0 (0.00-0.1) % Eos # (Auto) 0.74 H (0-0.5) x10^3/uL Immature Gran # (Auto) 0.03 (0.00-0.03) x10^3u/L Absolute Lymphs (auto) 0.61 L (1.0-4.6) x10^3/uL Absolute Monos (auto) 0.69 (0.0-1.3) x10^3/uL Absolute Nucleated RBC 0.00 (0.00-0.01) x10^3u/L Lymphocytes % 7.5 L (24.0-44.0) % Monocytes % 8.5 (0.0-12.0) % Eosinophils % 9.1 H (0.00-5.0) % Basophils % 0.6 (0.0-0.4) % Absolute Granulocytes 5.99 (1.4-6.9) x10^3/uL Basophils # 0.05 (0-0.4) x10^3/uL PT 10.8 (9.4-12.5) SECONDS INR 1.02 (0.8-3.0) Sodium 137 (137-145) mmol/L Potassium 5.4 H (3.5-5.1) mmol/L Chloride 109 H (98-107) mmol/L Carbon Dioxide 18 L (22-30) mmol/L Anion Gap 15.6 H (5-15) MEQ/L BUN 40 H (9-20) mg/dL Creatinine 4.02 H (0.66-1.25) mg/dL Estimated GFR 15.1 ML/MIN Glucose 103 (74-106) mg/dL Calcium 7.9 L (8.4-10.2) mg/dL Total Bilirubin 0.40 (0.2-1.3) mg/dL AST 13 L (17-59) U/L ALT 6 (0-50) U/L Alkaline Phosphatase 103 (38-126) U/L Serum Total Protein 7.1 (6.3-8.2) g/dL Albumin 4.0 (3.5-5.0) g/dL - Progress Progress: improved Progress Note: 06/24/22 21:25 CAT scan of the abdomen pelvis without contrast shows mild urinary bladder wall thickening. Incomplete distention versus cystitis. Also focal posterior bladder wall thickening up to 1.5 cm. Concerning for mass versus debris. 06/24/22 21:27 Medical decision making: This patient's lab work is pretty close to his normal levels. He is hemodynamically stable for discharge as well. We will replace the Matthews catheter with a three-way catheter and irrigate out till we are able to remove any blood clots. We will place him on fluoroquinolone antibiotic and he will follow-up with his urologist tomorrow by phone to make a follow-up appointment. 06/24/22 22:15 Reassessment shows the three-way Matthews catheter flushing is clearing out any clots and fluid in the Matthews catheter tubing is relatively clear now. Patient is in no pain. Counseled pt/family regarding: lab results, diagnosis, need for follow-up, rad results - Departure Departure Disposition: Home Clinical Impression: Matthews catheter problem, Cystitis Condition: Stable Critical Care Time: No Referrals: ABRAHAN DIXON MD [Primary Care Provider] - Follow up/PCP as directed Additional Instructions: Drink plenty of fluids. Call your urologist tomorrow morning to make arrangements for follow-up appointment. Take antibiotics as prescribed. Take your other medications as prescribed. Prescriptions: Ciprofloxacin [Cipro 500 MG] 500 mg PO BID #14 tablet
[2022-06-24 19:39] LABS: Absolute Neutrophil Ct (ANC) 5.99 x10^3/uL (1.4-6.9); Basophil (Absolute #) 0.05 x10^3/uL (0-0.4); Eosinophil % 9.1 % (0.00-5.0); Eosinophil (Absolute #) 0.74 x10^3/uL (0-0.5); Hematocrit 33.6 % (42-50); Hemoglobin 10.4 g/dL (12.5-18.0); Lymphocyte (Absolute #) 0.61 x10^3/uL (1.0-4.6); Lymphocytes % 7.5 % (24.0-44.0); Mean Cell Volume 98.2 fL (78-100); Mean Corpuscular Hemoglobin 30.4 pg (26-32); Mean Platelet Volume 10.3 fL (7.5-11.0); Monocyte (Absolute #) 0.69 x10^3/uL (0.0-1.3); Monocytes % 8.5 % (0.0-12.0); Neutrophil % 73.9 % (36.0-66.0); Platelet Count 215 x10^3/uL (150-450); Red Blood Count 3.42 x10^6/uL (4.1-5.6); Red Cell Distribution Width 14.3 % (11.5-14.0); White Blood Count 8.1 x10^3/uL (4.0-10.5)
[2022-06-24 19:59] LABS: INR 1.02 (0.8-3.0); PROTIME 10.8 SECONDS (9.4-12.5)
[2022-06-24 20:00] LABS: ANION GAP 15.6 MEQ/L (5-15); BILIRUBIN,TOTAL 0.4 mg/dL (0.2-1.3); Calcium 7.9 mg/dL (8.4-10.2); Creatinine 1 4.02 mg/dL (0.66-1.25); EST GLOMERULAR FILTRATION RATE 15.1 ML/MIN; Potassium 5.4 mmol/L (3.5-5.1); Total Protein 7.1 g/dL (6.3-8.2)
[2022-06-24] MEDS ORDERED: Levofloxacin 500 MG Tablet PO ONE (21:28)
[2022-06-24] MEDS ORDERED: Levofloxacin 500 MG Tablet ONE (21:59)
[2022-06-24 22:07] VITALS: O2SAT 97
[2022-06-24 23:06] VITALS: BP 130/74; PULSE 61
--- NOTE | 2022-06-25 08:54 | XRAY ---
Indication: Hematuria. Abdomen and pelvic pain. Multiple contiguous axial images obtained through the abdomen and pelvis without contrast using renal stone protocol. Comparison: September 02, 2020 Lung bases demonstrates minimal dependent atelectasis. No focal infiltrate or effusion. Heart not enlarged. New small hiatal hernia. Again chronic left hemidiaphragm elevation. Both kidneys are now small/atrophic. No renal calculus or evidence for obstructive uropathy in either system. Stable left renal exophytic cyst. Urinary bladder mildly distended with mild circumferential wall thickening either incomplete distention versus cystitis. Posterior urinary bladder demonstrates focal wall thickening up to 1.5 cm either intraluminal debris versus bladder mass. Again enlarged prostate gland impresses on the base of the bladder. Noncontrasted stomach and bowel loops appear nonobstructed again with sigmoid diverticulosis. Again tiny splenic calcified granulomas. No free fluid/air. Remaining liver, gallbladder, pancreas, spleen, and adrenal glands are unremarkable for noncontrast exam. There remains mild scattered aortoiliac calcifications without AAA. Osseous structures intact again with osteopenia mild/moderate multilevel degenerative spondylosis, mild levoscoliosis centered at L3, and mild degenerative changes both hips. Impression: 1. Negative renal calculus or evidence for obstructive uropathy. New bilateral renal atrophy. 2. Minimal urinary bladder wall thickening either incomplete distention versus cystitis. Also focal posterior bladder wall thickening either intraluminal debris versus bladder mass. 3. New small hiatal hernia. 4. Again chronic findings including left hemidiaphragm elevation, left renal cyst, enlarged prostate gland, colonic diverticulosis, arteriosclerotic disease, chronic bony findings, and old granulomatous disease.
== END 2022-06-24 23:34 | disposition home or self-care (01) ==
LOC: ED 18:09
DX: T83.9XXA Unspecified complication of genitourinary prosthetic device, implant and graft, initial encounter (principal); N30.90 Cystitis, unspecified without hematuria; N28.9 Disorder of kidney and ureter, unspecified; Z79.899 Other long term (current) drug therapy
CPT/HCPCS: 36415; 74176; 80053; 85025; 85610; 99283; A9270-GY